=== PATIENT | male | born 1940 | race Caucasian/White ===

== ENCOUNTER 2018-07-28 09:27 | Outpatient (REF) | payer MEDICARE, SELFPAY ==
[2018-07-28 13:30] LABS: Hemoglobin A1C 5.7 % (4.5-6.2)
[2018-07-28 13:48] LABS: ALT 18 U/L (12-78); Cholesterol 127 mg/dL (50-200); HDL Cholesterol 57 mg/dL (40-60); LDL CHOLESTEROL 50 mg/dL (<100); Triglyceride 83 mg/dL (30-150)
== END 2018-07-28 09:47 ==
LOC: NCHCN 09:27
PROVIDERS: PCP Family Medicine; Visit Provider Family Medicine
DX: R73.01 Impaired fasting glucose (principal); E78.5 Hyperlipidemia, unspecified
CPT/HCPCS: 80061; 83721; 83036; 84460

== ENCOUNTER 2018-08-18 00:57 | Outpatient (CLI) | payer MEDICARE, SELFPAY ==
--- NOTE | 2018-08-18 13:40 | MERGE_ITS ---
*[facility]* *[facility]* [address] [place] [address] Date of study: 08/18/2018 Transthoracic Echocardiography M-mode, complete 2D, complete spectral Doppler, and color Doppler *STUDY CONCLUSIONS* Summary: 1. Left ventricle: The cavity size was normal. Wall thickness was at the upper limits of normal. Systolic function was normal. The estimated ejection fraction was 55-60%. Wall motion was normal; there were no regional wall motion abnormalities. 2. Aortic valve: Trileaflet; mildly thickened leaflets. There was moderate regurgitation directed eccentrically in the LVOT. 3. Aorta: There was a dilated segment, extending from the ascending aorta to the proximal aortic arch. The maximal diameter was 4.2cm. 4. Mitral valve: There was mild regurgitation. 5. Right ventricle: The cavity size was normal. Wall thickness was normal. Systolic function was normal. 6. Pulmonary arteries: Pulmonary systolic pressure was increased, in the range of 35mm Hg to 40mm Hg. *PATIENT PRESENTATION* Height: 170.2cm ((67in) ) S/D Pressure: 128 / 66 Weight: 72.6kg ((159.7lb) ) BSA: 1.86m^2 Test start time: 01:40 PM. Test stop time: 03:00 PM. ORDERING Patience Alvarez REFERRING Patience Alvarez PERFORMING [facility] MEDICAL BILLER CODER RT Maurilio (R)(CT), BASSEM *PROCEDURE DATA* Procedure information: The patient was identified by two identifiers. This study was interpreted by [facility]. Pertinent images and digital data are archived for permanent storage and are available for subsequent review. Comparison was made to the study of 08/03/2014. Study status: Routine. Transthoracic echocardiography. M-mode, complete 2D, complete spectral Doppler, and color Doppler. A Transthoracic Echocardiogram was performed. Scanning was performed from the parasternal, apical, subcostal, and suprasternal notch acoustic windows. Images were obtained using an [id number] cardiac ultrasound machine. Image quality was adequate. Study completion: The patient tolerated the procedure well. There were no complications. *CARDIAC ANATOMY* Left ventricle: The cavity size was normal. Wall thickness was at the upper limits of normal. Systolic function was normal. The estimated ejection fraction was 55-60%. Wall motion was normal; there were no regional wall motion abnormalities. The study is not technically sufficient to allow evaluation of LV diastolic function. Aortic valve: Trileaflet; mildly thickened leaflets. Mobility was not restricted. Doppler: Transvalvular velocity was within the normal range. There was no stenosis. There was moderate regurgitation directed eccentrically in the LVOT. VTI ratio of LVOT to aortic valve: 0.66. Valve area (VTI): 2.2cm^2. Indexed valve area (VTI): 1.2cm^2/m^2. Peak velocity ratio of LVOT to aortic valve: 0.65. Valve area (Vmax): 2.1cm^2. Indexed valve area (Vmax): 1.1cm^2/m^2. Mean velocity ratio of LVOT to aortic valve: 0.66. Valve area (Vmean): 2.1cm^2. Indexed valve area (Vmean): 1.2cm^2/m^2. Mean gradient (S): 6.5mm Hg. Peak gradient (S): 13.3mm Hg. Aorta: Aortic arch dimension: 3.7 cm. There was a dilated segment, extending from the ascending aorta to the proximal aortic arch. The maximal diameter was 4.2cm. Aortic root: The aortic root was at upper normal limits. Ascending aorta: The ascending aorta was mildly to moderately dilated. Aortic arch: The aortic arch was mildly dilated. Mitral valve: Structurally normal valve. Mobility was not restricted. Doppler: Transvalvular velocity was within the normal range. There was no evidence for stenosis. There was mild regurgitation. Valve area by pressure half-time: 7.4cm^2. Indexed valve area by pressure half-time: 4cm^2/m^2. Peak gradient (D): 3.4mm Hg. Left atrium: The atrium was normal in size. Right ventricle: The cavity size was normal. Wall thickness was normal. Systolic function was normal. Pulmonic valve: Structurally normal valve. Doppler: Transvalvular velocity was within the normal range. There was no evidence for stenosis. There was trivial regurgitation. Peak gradient (S): 3.6mm Hg. Tricuspid valve: Structurally normal valve. Doppler: Transvalvular velocity was within the normal range. There was no evidence for stenosis. There was mild regurgitation. Pulmonary artery: Pulmonary systolic pressure was increased, in the range of 35mm Hg to 40mm Hg. Right atrium: The atrium was normal in size. Pericardium: There was no pericardial effusion. Systemic veins: Inferior vena cava: Well visualized. The vessel was patent and normal in size. The respirophasic diameter changes were in the normal range (greater than or equal to 50%). Baseline ECG: Atrial flutter. Measurements Left ventricle Value Reference LV ID, ED, PLAX 5.0 cm 3.5 - 6.0 LV ID, ES, PLAX 3.5 cm 2.1 - 4.0 LV PW thickness, ED, PLAX 1.0 cm LV end-diastolic volume, 1-p A2C 92 ml LV ejection fraction, 1-p A2C 57 % LV end-diastolic volume, 1-p A4C 98 ml LV ejection fraction, 1-p A4C 58 % LV e', lateral 0.095 m/sec LV E/e', lateral 10 LV e', medial 0.077 m/sec LV E/e', medial 12 LV e', average 0.086 m/sec LV E/e', average 11 Ventricular septum Value Reference IVS thickness, ED, PLAX 1.2 cm LVOT Value Reference LVOT ID, A-P 2.0 cm LVOT area 3.3 cm^2 LVOT peak velocity, S 1.18 m/sec LVOT mean velocity, S 0.79 m/sec LVOT VTI, S 21.9 cm LVOT peak gradient, S 5.6 mm Hg LVOT mean gradient, S 2.9 mm Hg Stroke volume (SV), LVOT DP 72 ml Stroke index (SV/bsa), LVOT DP 39 ml/m^2 Aortic valve Value Reference Aortic valve peak velocity, S 1.8 m/sec Aortic valve mean velocity, S 1.2 m/sec Aortic valve VTI, S 33.0 cm Aortic mean gradient, S 6.5 mm Hg Aortic peak gradient, S 13.3 mm Hg VTI ratio, LVOT/AV 0.66 Aortic valve area, VTI 2.2 cm^2 Velocity ratio, peak, LVOT/AV 0.65 Aortic valve area, peak velocity 2.1 cm^2 Velocity ratio, mean, LVOT/AV 0.66 Aortic valve area, mean velocity 2.1 cm^2 Aortic valve area/bsa, mean velocity 1.2 cm^2/m^2 Aortic regurg deceleration 535 cm/s^2 Aortic regurg pressure half-time 232 ms Aorta Value Reference Aortic root ID, ED 3.7 cm Ascending aorta ID, A-P, S 4.2 cm Left atrium Value Reference LA ID, A-P, ES 2.2 cm LA ID/bsa, A-P 1.2 cm/m^2 <=2.2 LA area, ES, A4C 23 cm^2 8.8 - 23.4 LA area, ES, A2C 21 cm^2 LA volume/bsa, ES, 1-p A4C 44 ml/m^2 LA volume, ES, 2-p 72 ml LA volume/bsa, ES, 2-p 38 ml/m^2 LA/aortic root ratio 0.61 Mitral valve Value Reference Mitral E-wave peak velocity 0.93 m/sec Mitral deceleration time (L) 103 ms 150 - 230 Mitral pressure half-time 30 ms Mitral peak gradient, D 3.4 mm Hg Mitral valve area, PHT, DP 7.4 cm^2 Tricuspid valve Value Reference Tricuspid regurg peak velocity 2.8 m/sec Tricuspid peak RV-RA gradient 32.2 mm Hg Right atrium Value Reference RA area, ES, A4C 15.2 cm^2 8.3 - 19.5 Pulmonic valve Value Reference Pulmonic peak gradient, S 3.6 mm Hg Legend: (L) and (H) grady values outside specified reference range. I have personally reviewed the images and have reviewed and edited the reported findings. Electronically signed by Jan Bae 08/19/2018 07:50
== END 2018-08-18 01:17 ==
PROVIDERS: PCP Family Medicine; Visit Provider Family Medicine
DX: I35.1 Nonrheumatic aortic (valve) insufficiency (principal); I34.0 Nonrheumatic mitral (valve) insufficiency
CPT/HCPCS: 93306

== ENCOUNTER 2019-10-06 00:58 | Outpatient (CLI) | payer MEDICARE, SELFPAY ==
--- NOTE | 2019-10-06 10:10 | DI.US_ITS ---
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 aortic valve regurgitation i35.1 follow up echo, p lease compare to last year.? progression? need to see cardiology Conclusion Left Ventricle : The left ventricle is normal size. Left ventricular systolic function is normal. Mi ld left ventricular hypertrophy. Asymmetric septal thickening is noted. The posterior wall thickness is mildly increased. The septal thickness is mildly increased. There is normal LV segmental wall mot ion. Diastolic function is indeterminate. LVEF is estimated to be 50-55%. Right Ventricle : The right ventricle is normal is size.. The right ventricular systolic function ivett ears normal. Atria : Left atrium is moderately dilated. The right atrium size is normal. Aortic Valve : Aortic valve is trileaflet. Aortic valve leaflets are mildly thickened. Moderate to se eddie aortic regurgitation (PHT 163) There is no significant aortic valvular stenosis. Mitral Valve : The mitral valve is normal in structure. Mild mitral regurgitation. Tricuspid Valve : The tricuspid valve is not well visualized. Mild to moderate tricuspid regurgitatio n. Great Vessels : The ascending aorta is moderately dilated (4.4cm). The IVC i sdilated in size and c ollapses >50% with inspiration. Compared to prior echocardiogram dated 08/18/2018: The patient's aortic regurgitation has worsened sl ightly and ejection fraction has decreased. The ascending aorta has increased in size from 4.2 to 4. 4 cm. Wall motion Left Ventricle The left ventricle is normal size. Left ventricular systolic function is normal. Mild left ventricula r hypertrophy. Asymmetric septal thickening is noted. The posterior wall thickness is mildly increase d. The septal thickness is mildly increased. There is normal LV segmental wall motion. Diastolic func tion is indeterminate. LVEF is estimated to be 50-55%. Right Ventricle The right ventricle is normal is size.. The right ventricular systolic function appears normal. Atria Left atrium is moderately dilated. The right atrium size is normal. Aortic Valve Aortic valve is trileaflet. Aortic valve leaflets are mildly thickened. There is no significant aorti c valvular stenosis. Moderate to severe aortic regurgitation (PHT 163) Mitral Valve The mitral valve is normal in structure. Mild mitral regurgitation. Tricuspid Valve The tricuspid valve is not well visualized. Mild to moderate tricuspid regurgitation. Pulmonic Valve Mild pulmonic regurgitation. Great Vessels Aortic root is normal The ascending aorta is moderately dilated (4.4cm). The IVC i sdilated in size a nd collapses >50% with inspiration. Pericardium There is no pericardial effusion. 2D Dimensions IVSd 1.40 cm M: 0.6-1.2 LV EDV A2C 74.3 mL PWd 1.15 cm M: 0.6 - 1.2 LV EDV A4C 82.9 mL LVDd 4.40 cm M: 4.2 - 5.8 LA Volume Index Biplane 53.8 mL/m2 LVDs 3.20 cm M: 2.5 - 4.0 LA Area A4C 25.49 cm2 Aortic Root 3.70 cm M: 3.1 - 3.7 LA Area A2C 31.12 cm2 RVID Base (AP4) 3.70 cm (M/F) 2.5-4.1 EF AP4 49.5 % RA Area A4C 16.52 cm2 EF AP2 50.5 % LVOT 1.95 cm (M/F) 1.5-2.5 EF BP 52.3 % Ascending Aorta 4.40 cm M: 2.6 - 3.4 IVC 2.24 cm LVEF (Teich) 52.6 % LVEF (Walton's) 52.29 % M: 52 - 72 LV Volume 63.21 mL M: 62 - 150 LV Volume Index 33.98 mL/m2 M: 34 - 74 FS 26.80 % LV Diastology MV E' medial 0.100 (>0.07 m/s) TR Peak Velocity 2.79 m/s LV E/e MED 9.05 (<14) MV E' lateral 0.146 (>0.1 m/s) LV E/e LAT 6.20 (<14) LA vol/ BSA A2C s A-L 57.1 mL/m2 LA vol/ BSA A4C s A-L 44.0 mL/m2 Aortic Valve LVOT Area 3.04 cm2 AoV Area Vmax 2.28 cm2 LVOT Vmax 1.44 m/s AoV Area/ BSA (Vmax) 1.23 cm2/m2 LVOT Mean Aron. 0.96 m/s KEVIN Mean Aron. 2.15 cm2 LVOT Peak Gr. 8.3 mmHg KEVIN Mean Aron. Index 1.16 cm2/m2 LVOT Mean Gr. 4.3 mmHg AV Regurg Decel. 562 msec LVOT VTI 0.268 m AV Regurg PHT 163 msec AoV Vmax 1.92 (0.5-1.3 m/s) AoV Mean Aron. 1.36 m/s AoV Peak Grad 14.8 mmHg LVOT SV 81.60 mL AoV Mean Grad 8.4 (<5 mmHg) AoV VTI 0.367 (0.18-0.25 m) AoV Area VTI 2.22 (2.5-4.5 cm2) AoV Area/ BSA (VTI) 1.20 cm/m2 Mitral Valve MV E Max Aron. 0.91 (0.4-1.3 m/s) MVA VTI 4.93 (4.0-6.0 cm2) PV Peak Velocity 1.21 (0.5-1.5 m/s) RVOT Peak Gr. 2.48 mmHg RVOT Peak Aron. 0.79 m/s RVOT Mean Gr. 1.30 mmHg RVOT VTI 0.100 m Tricuspid Valve TR P. Gradient 31.0 mmHg TV Regurg Vmax 2.79 m/s RAP Estimate 8.00 mmHg RVSP 39.1 mmHg
== END 2019-10-06 01:18 ==
PROVIDERS: PCP Family Medicine; Visit Provider Family Medicine
DX: I77.810 Thoracic aortic ectasia (principal); I35.1 Nonrheumatic aortic (valve) insufficiency; I10 Essential (primary) hypertension
CPT/HCPCS: 93306

== ENCOUNTER → 2019-11-21 15:01 | Outpatient (BNVA) | payer MEDICARE, SELFPAY | PROVIDERS: PCP Family Medicine; Referring Provider Family Medicine; Visit Provider Internal Medicine Cardiovascular Disease | DX: I35.1 Nonrheumatic aortic (valve) insufficiency (principal); I77.810 Thoracic aortic ectasia | CPT/HCPCS: 99203; 99214 ==

== ENCOUNTER 2020-05-03 01:17 | Outpatient (CLI) | payer MEDICARE, SELFPAY ==
--- NOTE | 2020-05-03 12:37 | DI.US_ITS ---
APPROVED REPORT EXAM: Comprehensive 2D, Doppler, and color-flow Echocardiogram Patient Location: Out-Patient Registered Safety Engineer: Stacie Miranda RDCS (AE) Indications: Aortic Insufficiency, Aortic root dilation Other Information Study Quality: Adequate Conclusion Moderate concentric left ventricular hypertrophy. Estimated ejection fraction is 55 to 60%. There a re no segmental wall motion abnormalities Normal right ventricular size and systolic function Left atrium is mildly dilated. The right atrium is normal in size Aortic valve is trileaflet and sclerotic. There is no aortic stenosis. There is moderate aortic reg urgitation Structurally normal mitral valve. Mild to moderate mitral regurgitation Normal tricuspid valve. Mild tricuspid regurgitation. Normal estimated right ventricular systolic p ressure, 29 mmHg Normal pulmonic valve with trace regurgitation Normal aortic root. Ascending aorta is dilated measuring 4.13 cm Wall motion Left Ventricle The left ventricle is normal size. The left ventricular systolic function is normal. The left ventric ular ejection fraction is within the normal range. Moderate concentric left ventricular hypertrophy. There is normal LV segmental wall motion. There is no ventricular septal defect visualized. LVEF is 5 5-60%. Right Ventricle The right ventricle is normal size. The right ventricular systolic function is normal. The RVSP is 29 .4mmHg. Atria Left atrium is mildly dilated. The right atrium size is normal. The interatrial septum is intact with no evidence for an atrial septal defect. Aortic Valve Aortic valve is trileaflet. The Aortic valve is sclerotic. There is no aortic valvular stenosis. Mode rate aortic regurgitation. Mitral Valve The mitral valve is normal in structure. No evidence of mitral valve stenosis. Mild to moderate huyen l regurgitation. Tricuspid Valve The tricuspid valve is normal in structure. There is no tricuspid valve stenosis. Mild tricuspid regu rgitation. Pulmonic Valve The pulmonary valve is normal in structure. There is no pulmonic valvular stenosis. Trace pulmonic re gurgitation. Great Vessels The aortic root is normal in size. 3.3 cm The ascending aorta is moderately dilated.4.13 cm Aortic ar ch is dilated. IVC is normal in size and collapses >50% with inspiration. Pericardium There is no pericardial effusion. 2D Dimensions IVSD d PLAX 1.30 cm M: 0.6-1.2 LV Vol A2C d MOD 107.7 mL LVPW d PLAX 1.33 cm M: 0.6 - 1.2 LV Vol A4C d MOD 142.6 mL LVID d PLAX 4.23 cm M: 4.2 - 5.8 LA vol/ BSA A2C s A-L 25.5 mL/m2 LVDs 3.20 cm M: 2.5 - 4.0 LA vol/ BSA A4C s A-L 44.7 mL/m2 Ao Root d 3.33 cm M: 3.1 - 3.7 LA Vol/ BSA Biplane s A-L 36.7 mL/m2 RA Area A4C 16.52 cm2 LA Area A4C s MOD 25.31 cm2 RA Vol/ BSA A4C s A-L 24.4 mL/m2 LA Area A2C s MOD 17.57 cm2 Ao Asc Diam d 4.13 cm M: 2.6 - 3.4 LV EF A4C MOD 51.0 % LV EF Teichholz 47.4 % LV EF A2C MOD 55.7 % LVEF (Walton's) 53.30 % M: 52 - 72 LV EF Biplane MOD 53.3 % LV Volume 95.58 mL M: 62 - 150 SV 66.56 mL LV Volume Index 50.84 mL/m2 M: 34 - 74 SV Index 35.34 mL/m2 LV Vol Biplane MOD 124.9 mL FS 23.55 % M-Mode TAPSE 2.26 cm (M/F) >1.7 LV Diastology MV E' medial 0.090 (>0.07 m/s) E/A Ratio 2.3 LV E/e MED 11.20 (<14) MV E Vmax 1.02 (0.4-1.3 m/s) MV E' lateral 0.138 (>0.1 m/s) MV A Vmax 0.45 (0.4-1.3 m/s) LV E/e LAT 7.35 (<14) MV E/A Ratio 2.20 MV E/E' medial 11.24 MV E/E' lateral 7.36 Aortic Valve LVOT Area 3.13 cm2 AoV Area Vmax 2.56 cm2 LVOT Vmax 1.48 m/s AoV Area/ BSA (Vmax) 1.36 cm2/m2 LVOT Mean Aron. 0.88 m/s KEVIN Mean Aron. 2.46 cm2 LVOT Peak Grad 8.7 mmHg KEVIN Mean Aron. Index 1.30 cm2/m2 LVOT Mean Grad 3.8 mmHg AR DT 1834 msec LVOT VTI 0.290 m AR PHT 532 msec LVOT Diam s 1.95 cm AoV Vmax 1.81 m/s Velocity Ratio 0.81 AoV Mean Aron. 1.12 m/s AoV Peak Grad 13.1 mmHg LVOT SV 90.93 mL AoV Mean Grad 6.0 mmHg AoV VTI 0.345 m AoV Area VTI 2.64 cm2 AoV Area/ BSA (VTI) 1.40 cm/m2 Mitral Valve MV DT 100 (160-240 msec) MR Vmax 5.40 m/s MV PHT 29 msec MR VTI 1.811 m MV Area PHT 7.61 cm2 MR Peak Grad 116.7 mmHg MV VTI 0.224 m MR Mean Grad 76.9 mmHg MV Area VTI 4.05 (4.0-6.0 cm2) MR PISA Radius 0.34 cm MR EROA 0.05 cm2 MR Aliasing Velocity 0.35 m/s MR PISA 0.72 cm2 Pulmonary Valve PV Vmax 0.94 (0.5-1.5 m/s) RVOT Peak Gr. 1.75 mmHg PV Peak Grad 3.5 mmHg RVOT Mean Gr. 0.80 mmHg PV Mean Grad 1.8 mmHg RVOT VTI 0.118 m PV VTI 0.178 m RVOT Vmax 0.66 m/s Tricuspid Valve TR Peak Grad 26.3 mmHg TR Vmax 2.57 m/s RA Pressure 3.00 mmHg RVSP (TR) 29.4 mmHg
== END 2020-05-03 01:37 ==
PROVIDERS: PCP Family Medicine; Visit Provider Internal Medicine Cardiovascular Disease
DX: I08.3 Combined rheumatic disorders of mitral, aortic and tricuspid valves (principal)
CPT/HCPCS: 93306

== ENCOUNTER → 2020-05-21 12:38 | Outpatient (BNVA) | payer MEDICARE, SELFPAY | PROVIDERS: PCP Family Medicine; Referring Provider Family Medicine; Visit Provider Internal Medicine Cardiovascular Disease | DX: I35.1 Nonrheumatic aortic (valve) insufficiency (principal); I77.810 Thoracic aortic ectasia; I10 Essential (primary) hypertension | CPT/HCPCS: 99214 ==

== ENCOUNTER → 2020-11-20 10:57 | Outpatient (BNVA) | payer MEDICARE, SELFPAY | PROVIDERS: PCP Family Medicine; Referring Provider Family Medicine; Visit Provider Internal Medicine Cardiovascular Disease | DX: I35.1 Nonrheumatic aortic (valve) insufficiency (principal); I77.810 Thoracic aortic ectasia; I10 Essential (primary) hypertension | CPT/HCPCS: 99442; 99213 ==

== ENCOUNTER 2021-02-12 09:30 | Emergency (ER) | payer MEDICARE, SELFPAY ==
[2021-02-12] VITALS (18 sets, daily range): BP systolic 126–136; BP diastolic 58–70; PULSE 91–94; RESP 14; TEMP 36.5; O2SAT 94–97
--- NOTE | 2021-02-12 09:32 | W.ED.GENAD ---
Discharge Plan Disposition Patient Disposition: HOME Condition: Stable Discharge Details Clinical Impression: Left-sided epistaxis Primary Care Provider: Patience Alvarez ED Provider: Hussain Don Home Meds and New Rx's Prescriptions: Continued tamsulosin 0.4 MG capsule 1 cap PO HS Qty: 90 RF: 4 sertraline 100 MG tablet 100 mg PO DAILY RF: 0 aspirin 81 MG tablet,delayed release (DR/EC) 1 tab PO . 3X WK RF: 0 baclofen 20 MG tablet 20 mg PO TID RF: 0 lisinopril 10 MG tablet 10 mg PO DAILY RF: 0 omeprazole 20 MG capsule,delayed release(DR/EC) 20 mg PO DAILY RF: 0 cholecalciferol (vitamin D3) [Vitamin D3] 2,000 UNIT capsule 1 cap PO DAILY RF: 0 rosuvastatin [Crestor] 20 MG tablet 20 mg PO HS RF: 0 Discharge Instructions Instructions: Nosebleed (ED) Additional Instructions: At this time your nosebleed was easily controlled using a medicated pad and a nasal clamp. I recommend continuing with the nasal clamp, direct pressure, and she may remove the cottonball in the next 12-24 hours. Please watch for new or worsening symptoms and return to the ER for any concerns. You would likely benefit from using a humidifier in your home, especially your bedroom to help so the air is not so dry. I have placed you on the ENT list, please give their office a call tomorrow to help expedite outpatient care given your recurrent nosebleeds over the past several months. Referrals: Ramesh Johnson DO [OSTEOPATHIC DOCTOR] - Medical Decision Making 81-year-old gentleman presents with what appears to be a left anterior epistasis, controlled at this point. He states that he has had several over the past few months. He denies any obvious trauma. Does report that his house is dry. He is not anticoagulated, denies any easy bruising or bleeding. He has not seen his primary care provider or ENT over the past several months for his multiple epistasis. Given he is hemodynamically stable, bleeding controlled at this time, he is not anticoagulated, I do not believe that reflexive blood work is indicated at this time. Blood pressure is appropriate at 136/58. There is no evidence of petechiae like rash. Clinically he appears well, nontoxic, hemodynamically stable. There is a large clot in his left nare, right naris unremarkable. There is no active bleeding. Discussed options, patient would prefer to try a cotton ball soaked in medication as opposed to a larger more cumbersome Rhino Rocket. As he appears well, stable, no active bleeding, I believe this plan to be perfectly reasonable. I had the patient blow his nose to clear the clot. Upon reevaluation there is no active bleeding, I could not visualize a source of bleeding. A cotton ball soaked in 2 sprays of Afrin, 3 cc of 2% lidocaine, and bacitracin was applied without difficulty, patient tolerated well. Patient was monitored in the ER for over 45 minutes. He remained hemodynamically stable. Upon reevaluation he was drinking water without difficulty. There is no signs of anterior bleeding around the cottonball as well as no evidence of any blood in his oropharynx. Discussed options once again. I will place him on the ENT list to help expedite outpatient ENT follow-up. He has a large republican for a family member's 80th birthday republican this evening. He is concerned about bleeding again later today or tomorrow. Plan is to leave the cotton ball and clamp in place, he will remove both in the next 12-24 hours. We discussed the importance of removing all of the cotton ball. He was encouraged to return to the ER for new or worsening symptoms. We also discussed using a humidifier in his house. Given his multiple nosebleeds over the past few months, stressed the importance of outpatient ENT follow-up. Patient and had no additional questions or concerns and are comfortable discharge at this time Medical Records Medical records reviewed: Yes I reviewed the patient's medical records. HPI General Mode of arrival: EMS. Date/Time Provider Initiated Documentation: 02/12/21 09:32. Limitations to Documentation: no limitations. Information obtained by: patient and EMS. HPI Narrative: This is an 81-year-old gentleman, not anticoagulated, past medical history that includes anxiety, aortic valve regurgitation, BPH, GERD, hypertension, hyperlipidemia, presenting to the ER complaining of a left sided epistasis. Patient reports that he has had a few nosebleeds from the same side over the past several months, typically resolves with pressure, has not followed up with ENT for this. This morning he developed a left-sided nosebleed around 630 a.m. while in bed. Denies coughing, sneezing, direct manipulation. Denies any black tarry stools or bright red blood in the stools, hematuria, other easy bruising or bleeding. Patient had applied pressure by the time EMS arrived bleeding was controlled. Because he has had so many frequent nosebleeds he decided to come to the ER for further evaluation. Currently patient is asymptomatic. He has no additional questions or concerns. Related Data Home Medications Medication Instructions Recorded Confirmed aspirin 1 tab PO . 3X WK 09/15/14 02/12/21 baclofen 20 mg PO TID 09/15/14 02/12/21 cholecalciferol (vitamin D3) 1 cap PO DAILY 09/15/14 02/12/21 [Vitamin D3] lisinopril 10 mg PO DAILY 09/15/14 02/12/21 omeprazole 20 mg PO DAILY 09/15/14 02/12/21 sertraline 100 mg PO DAILY 09/15/14 02/12/21 tamsulosin 1 cap PO HS #90 tab-cap 10/17/16 02/12/21 rosuvastatin [Crestor] 20 mg PO HS 08/28/17 02/12/21 Allergies Allergy/AdvReac Type Severity Reaction Status Date / Time No Known Allergies Allergy Unverified 02/12/21 09:36 Review of Systems Constitutional Constitutional: Denies fever(s), Denies headache(s) and Denies weakness ENT Ears, Nose, Mouth, and Throat: Denies headache(s), Denies nasal congestion and Denies nose pain Cardiovascular Cardiovascular: Denies chest pain and Denies dyspnea Respiratory Respiratory: Denies dyspnea Gastrointestinal Gastrointestinal: Denies abdominal pain, Denies nausea and Denies vomiting Genitourinary Genitourinary: Denies hematuria Integumentary/Breasts Skin/Breast: Denies rash Neurologic Neurologic: Denies headache(s) and Denies weakness Hematologic/Lymphatic Hematologic/Lymphatic: Denies easy bleeding and Denies easy bruising [facility] Medical History (Updated 02/12/21 @ 11:13 by LILIA Silva) Anxiety Anxiety about health Aortic valve regurgitation BPH w/o urinary obs/LUTS Cholelithiasis Erectile dysfunction GERD (gastroesophageal reflux disease) Hiatal hernia History of tobacco use HTN (hypertension) Hyperlipidemia Impaired fasting glucose LLQ abdominal pain Myelopathy Spinal stenosis, cervical region Spinal stenosis, lumbar region, with neurogenic claudication Splenic lesion Surgical History Colonoscopy - MAC (09/02/17) Repair of inguinal hernia bilateral Social History Smoking/Tobacco Use Status: Former Tobacco Use Quit Date: 08/31/78 Tobacco: How many years used: 20 Smoking risk assessment performed?: Yes Alcohol Intake: current Alcohol Intake frequency: 0-2 drinks per day Alcohol type: hard liquor Drug use: Never What is your relationship status?: Panel score (0-1 are the most socially isolated patients): 1 What type of physical activity do you participate in: other Details: stationary cycle Duration: 15-30 minutes/day Frequency: daily Do you feel safe at home: Yes Do you feel safe in your relationship?: Yes Exam Const General: cooperative, healthy appearing, comfortable and no acute distress Orientation: alert, awake and oriented x3 HENMT Head: normal to inspection, normocephalic and atraumatic General nose exam: other (Wearing a nasal clamp, no signs of trauma or anterior bleed) Face and sinus: normal facial exam Mouth: moist mucous membranes Throat: posterior oropharynx normal Other: I removed the nasal clamp, right nare unremarkable. Left nare without any obvious bleeding however there is a large clot obscuring my visual field Eyes General: appearance normal, both eyes and all related structures Conjunctivae: conjunctivae normal Neck Neck: normal visual inspection, full ROM, trachea midline and supple Resp Effort & Inspection: normal respiratory effort and able to speak in complete sentences Auscultation: clear to auscultation bilaterally Cardio Rate: regular rate Rhythm: regular rhythm Skin General skin exam: no rashes or lesions noted Neuro General: patient alert, patient awake, moves all extremities and no focal motor deficits Cognition: normal cognition Speech: speech normal Sensory Exam: no sensory deficits noted Extrem General: normal to inspection Psych Appearance: grossly normal Mental Status: mental status grossly normal Procedures Epistaxis Control Time Out Performed: Yes Nostril: left Nose Prepped With: lidocaine and phenylephrine Direct Inspection: unable to visualize Clots Removed by: blowing nose Cautery Used: none Device Inserted: other (Cottonball soaked in lidocaine, Afrin, bacitracin) Patient Tolerated Procedure: well and no complications
--- NOTE | 2021-02-12 19:01 | NUR.NOTE ---
Nursing Note: referral sent to ent
== END 2021-02-12 11:25 | disposition home or self-care (01) ==
PROVIDERS: Emergency Provider Physician Assistant; PCP Family Medicine
DX: R04.0 Epistaxis (principal)
CPT/HCPCS: 30901

== ENCOUNTER 2021-04-19 09:57 | Outpatient (REF) | payer MEDICARE, SELFPAY ==
[2021-04-19 15:03] LABS: HCT 36.4 % (40.0-50.0); HGB 11.7 g/dL (13.5-17.5); MCH 27.4 pg (27.0-33.0); MCHC 32.1 % (32.0-36.0); MCV 85.2 fL (80-95); MPV 9.2 fL (8.0-11.0); Platelet Count 149 10^3/uL (130-400); RBC 4.27 10^6/uL (4.36-5.78); RDW 13.1 % (11.8-14.1); RDW-SD 40.3 fL; WBC 4.44 10^3/uL (4.4-10.8)
[2021-04-19 16:43] LABS: ALT 14 U/L (16-63); AST 18 U/L (15-37); Albumin 3.9 g/dL (3.4-5.0); Alkaline Phosphatase 92 U/L (46-116); Anion Gap 9.1 mmol/L (3-11); BUN 23 mg/dL (7-18); Bilirubin, Total 0.5 mg/dL (0.2-1.0); CO2 28.9 mmol/L (21.0-32.0); CREATININE 1.1 mg/dL (0.70-1.30); Calcium 8.8 mg/dL (8.5-10.1); Chloride 106 mmol/L (98-107); Folate 11.9 ng/mL (8.6-20.0); Glucose 120 mg/dL (74-106); Potassium 4.1 mmol/L (3.5-5.1); Sodium 144 mmol/L (136-145); Total Protein 7.3 g/dL (6.4-8.2); Vitamin B12 322 pg/mL (193-986)
[2021-04-19 16:45] LABS: Hemoglobin A1C 5.9 % (<5.7)
[2021-04-19 18:20] LABS: Ferritin 15 ng/mL (26-388)
[2021-04-23 16:45] LABS: Methylmalonic Acid 0.22 nmol/mL (<=0.40)
== END 2021-04-19 09:58 | disposition home or self-care (01) ==
LOC: NCHCN 09:57
PROVIDERS: PCP Family Medicine; Visit Provider Family Medicine
DX: D64.9 Anemia, unspecified (principal); I10 Essential (primary) hypertension; R73.03 Prediabetes; R53.1 Weakness; Z51.81 Encounter for therapeutic drug level monitoring
CPT/HCPCS: 80053; 80186; 85027; 82607; 82728; 82746; 83036

== ENCOUNTER 2021-05-09 01:28 | Outpatient (CLI) | payer MEDICARE, SELFPAY ==
--- NOTE | 2021-05-09 08:30 | DI.US_ITS ---
APPROVED REPORT EXAM: Comprehensive 2D, Doppler, and color-flow Echocardiogram Patient Location: Out-Patient [employer] Operator: Stacie Miranda RDCS (AE) Indications: Aortic insufficiency, Dilated ascending aorta Other Information Study Quality: Adequate Conclusion Moderate concentric left ventricular hypertrophy. Estimated ejection fraction is 60 to 65%. Wall mo tion is normal Normal right ventricular size and systolic function Left atrium is moderately dilated. Right atrium is normal in size Sclerotic trileaflet aortic valve with mild to moderate regurgitation. No significant aortic stenosi s Mild mitral annular calcification. Mild to moderate mitral regurgitation Normal tricuspid valve with mild regurgitation. Estimated right ventricular systolic pressure is 32 mmHg Normal pulmonic valve with trace regurgitation Mildly dilated ascending aorta measuring 4.14 cm Patient rhythm may be atrial flutter with controlled rate. Suggest twelve-lead EKG Wall motion Left Ventricle The left ventricle is normal size. The left ventricular systolic function is normal. The left ventric ular ejection fraction is within the normal range. Moderate concentric left ventricular hypertrophy. There is normal LV segmental wall motion. There is no ventricular septal defect visualized. LVEF is 6 0-65%. Right Ventricle The right ventricle is normal size. The right ventricular systolic function is normal. The RVSP is 31 .9mmHg. Atria Left atrium is moderately dilated. The right atrium size is normal. The interatrial septum is intact with no evidence for an atrial septal defect. Aortic Valve The Aortic valve is sclerotic. Aortic valve is trileaflet. There is no aortic valvular stenosis. Mild to moderate aortic regurgitation. Mitral Valve Mild mitral annular calcification. No evidence of mitral valve stenosis. Mild to moderate mitral regu rgitation. Tricuspid Valve The tricuspid valve is normal in structure. There is no tricuspid valve stenosis. Mild tricuspid regu rgitation. Pulmonic Valve The pulmonary valve is normal in structure. There is no pulmonic valvular stenosis. Trace pulmonic re gurgitation. Great Vessels The aortic root is normal in size. The ascending aorta is mildly dilated. Ascending aorta is mildly d ilated.4.14 cm IVC is normal in size and collapses >50% with inspiration. Pericardium There is no pericardial effusion. 2D Dimensions IVSD d PLAX 1.31 cm M: 0.6-1.2 LV Vol A2C d MOD 134.9 mL LVPW d PLAX 1.30 cm M: 0.6 - 1.2 LV Vol A4C d MOD 136.4 mL LVID d PLAX 4.87 cm M: 4.2 - 5.8 LA vol/ BSA A2C s A-L 35.9 mL/m2 LVDs 3.25 cm M: 2.5 - 4.0 LA vol/ BSA A4C s A-L 33.3 mL/m2 Ao Root d 3.20 cm M: 3.1 - 3.7 LA Vol/ BSA Biplane s A-L 36.1 mL/m2 RA Area A4C 12.81 cm2 LA Area A4C s MOD 19.55 cm2 RA Vol/ BSA A4C s A-L 16.4 mL/m2 LA Area A2C s MOD 21.19 cm2 Ao Asc Diam d 4.14 cm M: 2.6 - 3.4 LV EF A4C MOD 61.1 % LV EF Teichholz 60.8 % LV EF A2C MOD 59.5 % LVEF (Walton's) 59.99 % M: 52 - 72 LV EF Biplane MOD 60.0 % LV Volume 108.52 mL M: 62 - 150 SV 83.09 mL LV Volume Index 61.65 mL/m2 M: 34 - 74 SV Index 47.11 mL/m2 LV Vol Biplane MOD 138.5 mL FS 32.55 % M-Mode TAPSE 1.67 cm (M/F) >1.7 LV Diastology MV E' medial 0.081 (>0.07 m/s) E/A Ratio 2.2 LV E/e MED 10.80 (<14) MV E Vmax 0.88 (0.4-1.3 m/s) MV E' lateral 0.145 (>0.1 m/s) MV A Vmax 0.40 (0.4-1.3 m/s) LV E/e LAT 6.05 (<14) MV E/A Ratio 2.01 MV E/E' medial 10.80 MV E/E' lateral 6.07 Aortic Valve LVOT Area 3.62 cm2 AoV Area Vmax 3.06 cm2 LVOT Vmax 1.55 m/s AoV Area/ BSA (Vmax) 1.73 cm2/m2 LVOT Mean Aron. 0.93 m/s KEVIN Mean Aron. 2.79 cm2 LVOT Peak Grad 9.6 mmHg KEVIN Mean Aron. Index 1.58 cm2/m2 LVOT Mean Grad 4.2 mmHg LVOT VTI 0.321 m LVOT Diam s 2.10 cm AoV Vmax 1.83 m/s Velocity Ratio 0.84 AoV Mean Aron. 1.21 m/s AoV Peak Grad 13.4 mmHg LVOT SV 116.21 mL AoV Mean Grad 6.5 mmHg AoV VTI 0.363 m AoV Area VTI 3.20 cm2 AoV Area/ BSA (VTI) 1.82 cm/m2 Mitral Valve MV DT 163 (160-240 msec) MR Vmax 4.82 m/s MV PHT 47 msec MR VTI 1.613 m MV Area PHT 4.66 cm2 MR Peak Grad 93.1 mmHg MV VTI 0.297 m MR Mean Grad 60.8 mmHg MV Area VTI 3.92 (4.0-6.0 cm2) Pulmonary Valve PV Vmax 1.11 (0.5-1.5 m/s) RVOT Peak Gr. 1.35 mmHg PV Peak Grad 4.9 mmHg RVOT Mean Gr. 0.70 mmHg PV Mean Grad 2.3 mmHg RVOT VTI 0.117 m PV VTI 0.210 m RVOT Vmax 0.58 m/s Tricuspid Valve TR Peak Grad 28.9 mmHg TR Vmax 2.69 m/s RA Pressure 3.00 mmHg RVSP (TR) 31.9 mmHg
== END 2021-05-09 01:48 ==
PROVIDERS: PCP Family Medicine; Visit Provider Internal Medicine Cardiovascular Disease
DX: I77.810 Thoracic aortic ectasia (principal); I08.3 Combined rheumatic disorders of mitral, aortic and tricuspid valves
CPT/HCPCS: 93306

== ENCOUNTER → 2021-05-13 11:30 | Outpatient (BNVA) | payer MEDICARE, SELFPAY | PROVIDERS: PCP Family Medicine; Referring Provider Family Medicine; Visit Provider Internal Medicine Cardiovascular Disease | DX: I35.1 Nonrheumatic aortic (valve) insufficiency (principal); I10 Essential (primary) hypertension; I77.810 Thoracic aortic ectasia | CPT/HCPCS: 99214; 99213 ==

== ENCOUNTER 2021-07-10 11:29 | Outpatient (REF) | payer MEDICARE, SELFPAY ==
[2021-07-10 14:10] LABS: HCT 42.7 % (40.0-50.0); HGB 13.7 g/dL (13.5-17.5); MCH 27.9 pg (27.0-33.0); MCHC 32.1 % (32.0-36.0); MPV 9.1 fL (8.0-11.0); Platelet Count 129 10^3/uL (130-400); RBC 4.91 10^6/uL (4.36-5.78); RDW-SD 54.4 fL; WBC 4.49 10^3/uL (4.4-10.8)
[2021-07-10 16:12] LABS: Ferritin 42 ng/mL (26-388); Vitamin B12 604 pg/mL (193-986)
== END 2021-07-10 11:30 | disposition home or self-care (01) ==
LOC: NCHCN 11:29
PROVIDERS: PCP Family Medicine; Visit Provider Family Medicine
DX: D64.9 Anemia, unspecified (principal); R53.1 Weakness
CPT/HCPCS: 85027; 82607; 82728

== ENCOUNTER 2022-05-19 09:23 | Outpatient (CLI) | payer MEDICARE, SELFPAY ==
--- NOTE | 2022-05-19 09:15 | RT.EKG_ITS ---
APPROVED REPORT Exam: Resting ECG Reason for Exam: AAA Patient Location: O HR:69 bpm ECG Measurements Heart Rate 69 AXIS AR [id number] P [id number] QRSd 152 QRS 54 QT 469 T 19 QTc 503 Conclusion Atrial flutter with predominant 4:1 AV block...A-rate 263, multiple Ps Right bundle branch block...QRSd>120, terminal axis(90,270)
== END 2022-05-19 09:24 | disposition home or self-care (01) ==
LOC: DI.CARD 09:24
PROVIDERS: PCP Family Medicine; Visit Provider Internal Medicine Cardiovascular Disease
DX: I48.92 Unspecified atrial flutter (principal); I45.10 Unspecified right bundle-branch block; I35.1 Nonrheumatic aortic (valve) insufficiency; I77.810 Thoracic aortic ectasia
CPT/HCPCS: 93010

== ENCOUNTER → 2022-05-19 11:32 | Outpatient (BNVA) | payer MEDICARE, SELFPAY | PROVIDERS: PCP Family Medicine; Referring Provider Family Medicine; Visit Provider Internal Medicine Cardiovascular Disease | DX: I35.1 Nonrheumatic aortic (valve) insufficiency (principal); I77.810 Thoracic aortic ectasia; I48.92 Unspecified atrial flutter | CPT/HCPCS: 93005; 99215 ==

== ENCOUNTER 2022-08-04 13:16 | Emergency (ER) | payer MEDICARE, SELFPAY ==
[2022-08-04 13:24] VITALS: BP 156/68; PULSE 87; RESP 18; TEMP 37; O2SAT 94
--- NOTE | 2022-08-04 13:59 | ED.GENADUL_ITS ---
Discharge Plan Disposition Patient Disposition: Home Condition: Stable Discharge Details Clinical Impression: Acute UTI, Falls frequently, Spinal stenosis at L4-L5 level Primary Care Provider: Patience Alvarez ED Provider: Hussain Don Home Meds and New Rx's Prescriptions: New cephalexin 500 mg capsule 500 mg PO BID 10 Days Qty: 20 0RF Continued mirtazapine 7.5 mg tablet 7.5 mg PO DAILY Eliquis 5 mg tablet 5 mg PO BID Qty: 180 3RF tamsulosin 0.4 MG capsule 1 cap PO HS Qty: 90 sertraline 100 MG tablet 50 mg PO DAILY lisinopril 10 MG tablet 10 mg PO DAILY omeprazole 20 MG capsule,delayed release(DR/EC) 20 mg PO DAILY cholecalciferol (vitamin D3) [Vitamin D3] 2,000 UNIT capsule 1 cap PO DAILY baclofen 20 mg tablet 20 mg PO DAILY rosuvastatin [Crestor] 20 MG tablet 20 mg PO HS Discharge Instructions Instructions: Urinary Tract Infection in Men (ED), Lumbar Spinal Stenosis (ED), Fall Prevention (ED) Additional Instructions: At this time your work-up reveals AN urinary tract infection, you were given IV antibiotics and a prescription for oral antibiotics were provided. We discussed admission at this time, you had a client and request to be discharged home. Please watch for new or worsening symptoms and return to the ER for any concerns. I would like you to contact your primary care provider tomorrow to discuss your ER visit and discuss your ongoing symptoms and need for outpatient reevaluation. I also strongly recommend that you contact your back specialty team at [facility] tomorrow to discuss your ER visit, recent MRI, and need for outpatient reevaluation. Discharge Data Discharge Date/Time-TO BE ENTERED AT DEPARTURE: 08/04/22 17:55 Medical Decision Making <LILIA Kelly - Last Filed: 08/11/22 23:08> Patient is a pleasant 82-year-old male past medical history of atrial flutter, aortic insufficiency, spinal stenosis presenting today with chief complaint of increased left lower extremity weakness, increased urinary incontinence, weakness, general malaise, diminished appetite. Patient chronically has weakness in the left lower extremity and tends to walk fairly stifflegged per 's report. However, the left leg has become significantly weak over the past 3 days and he suffered multiple falls. No significant head trauma, no LOC. He denies any headache or visual changes. Denies any chest pain or shortness of breath. He states over the past 3 days he has also had to urinate approximately every 20 minutes and is frequently incontinent. He reports that he is incontinent at baseline but not to this degree. He denies any recent back trauma. No fevers or chills. No recent change in medication. He denies any history of issues with his prostate. Denies any dysuria, hematuria. On exam, patient appears nontoxic lungs are clear. Patient does have a systolic murmur which he reports has been longstanding. Abdomen is benign and nontender. He has no CVA tenderness. Patient is tender throughout the lumbar spine on palpation, no step-off is appreciated. Has no saddle paresthesias. Intact rectal tone. His prostate feels to be enlarged but is not boggy and is nontender. He has weakness in the left lower extremity, particularly with dorsiflexion and flexion of the hip. He is unsteady on his gait and tends to lean forward, having difficulty stopping bending at the hip. He has 2+ distal pulses. With the patient's global symptoms and increased urinary frequency, I am concerned for potential UTI. He does not appear frankly septic. With the increased weakness as well as increased urinary incontinence, also considered cauda equina and will obtain MRI of the spine. He does not have any CVA tenderness to suggest pyelonephritis. Labs returned. No leukocytosis. Patient is slightly anemic with a hemoglobin of 12.8. Lactate within normal limits. CMP significant for elevated BUN 25. AST elevated at 75 which is new for the patient. Urinalysis is positive for nitrites, blood and bacteria. This was obtained through straight cath. Has reflexed to culture. He has not had a UTI historically, will begin him on Rocephin. At the end of my shift, care transition to Kade Don PA-C with imaging and disposition pending. I did speak with the patient's regarding possible admission given his frequent falls and deterioration at home. is not sure if her spouse would be amenable to admission and will discuss with him once he is returned from MRI. <LILIA Silva - Last Filed: 08/04/22 17:29> Patient is a pleasant 82-year-old male past medical history of atrial flutter, aortic insufficiency, spinal stenosis presenting today with chief complaint of increased left lower extremity weakness, increased urinary incontinence, weakness, general malaise, diminished appetite. Patient chronically has weakness in the left lower extremity and tends to walk fairly stifflegged per 's report. However, the left leg has become significantly weak over the past 3 days and he suffered multiple falls. No significant head trauma, no LOC. He denies any headache or visual changes. Denies any chest pain or shortness of breath. He states over the past 3 days he has also had to urinate approximately every 20 minutes and is frequently incontinent. He reports that he is incontinent at baseline but not to this degree. He denies any recent back trauma. No fevers or chills. No recent change in medication. He denies any history of issues with his prostate. Denies any dysuria, hematuria. On exam, patient appears nontoxic lungs are clear. Patient does have a systolic murmur which he reports has been longstanding. Abdomen is benign and nontender. He has no CVA tenderness. Patient is tender throughout the lumbar spine on palpation, no step-off is appreciated. Has no saddle paresthesias. Intact rectal tone. His prostate feels to be enlarged but is not boggy and is nontender. He has weakness in the left lower extremity, particularly with dorsiflexion and flexion of the hip. He is unsteady on his gait and tends to lean forward, having difficulty stopping bending at the hip. He has 2+ distal pulses. With the patient's global symptoms and increased urinary frequency, I am concerned for potential UTI. He does not appear frankly septic. With the increased weakness as well as increased urinary incontinence, also considered cauda equina and will obtain MRI of the spine. He does not have any CVA tenderness to suggest pyelonephritis. Labs returned. No leukocytosis. Patient is slightly anemic with a hemoglobin of 12.8. Lactate within normal limits. CMP significant for elevated BUN 25. AST elevated at 75 which is new for the patient. Urinalysis is positive for nitrites, blood and bacteria. This was obtained through straight cath. Has reflexed to culture. He has not had a UTI historically, will begin him on Rocephin. At the end of my shift, care transition to Kade Don PA-C with imaging and disposition pending. I did speak with the patient's regarding possible admission given his frequent falls and deterioration at home. is not sure if her spouse would be amenable to admission and will discuss with him once he is returned from MRI. 1530: Hussain Don PA-C I assumed care of this 82-year-old gentleman from my colleague LILIA Nation, please see her initial HPI and examination. Urine reflects UTI, Rocephin provided. MRI of the spine pending for cauda equina rule out. MRI reveals no evidence of disc herniation. Facet degeneration changes at L4-5, severe bilateral neural foramina narrowing and moderate central canal stenosis. Discussed MRI results with patient and family. Prior to my assuming care of the patient there was discussion regarding potential admission. and have spoken regarding admission and he wants to go home. I explained to him my concern for infection, weakness, multiple falls. Prior to discharge he was able to use a walker to ambulate slowly but steadily, this is his baseline per himself and his . We did discuss I would provide a prescription of additional antibiotics. We discussed his MRI in length, they state he has been seen by neurosurgery-back specialty at [facility] and they do plan to follow back up with them. I urged that he return for new or worsening symptoms, otherwise contact his primary care provider tomorrow to discuss his ER visit and need for outpatient reevaluation. Strict discharge and return precautions were provided. Patient understands, is agreeable to this plan, and has no additional questions or concerns upon discharge. This documentation was generated using [employer] dictation system, please disregard any oddities of phrase or misspellings. Medical Records Medical records reviewed: Yes I reviewed the patient's medical records. Imaging Data Radiologic Study: Attestation: I personally reviewed and interpreted this imaging study as follows: Imaging: MRI Radiologist's impression: Exam(s) MR LUMBAR SPINE WO EXAM: MR LUMBAR SPINE WO CLINICAL HISTORY: leg weakness, urinary incontinence. TECHNIQUE: Multiplanar multisequence MRI of the Lumbar spine was performed. COMPARISON: CR LEFT SHOULDER COMPLETE from 03/14/2015 FINDINGS: Bones: The last intervertebral disc space is designated the L5/S1 level for the numbering purpose of this examination. The vertebral body heights are well maintained. Alignment is satisfactory. The marrow signal characteristics are unremarkable. Cord: The conus tip ends at the T12 level. It is of normal size and signal intensity. T12-L1: No disc herniations or bulges are present. No central spinal canal or neural foraminal stenosis. L1-2: No disc herniations or bulges are present. No central spinal canal or neural foraminal stenosis. L2-3: No disc herniations or bulges are present. Facet degenerative changes cause mild right neural foraminal narrowing. No central canal stenosis. L3-4: No disc herniations or bulges are present. No central spinal canal stenosis. Mild bilateral neural foraminal narrowing secondary to mild facet encroachment.. L4-5: Mild loss of disc height. Mild concentric disc bulging. Facet degenerative changes cause mild spondylolisthesis. There is severe bilateral neural foraminal narrowing and moderate central canal stenosis. No central spinal canal or neural foraminal stenosis. L5-S1: No disc herniations or bulges are present. No central spinal canal or neural foraminal stenosis. The visualized SI joints and sacrum are well maintained. Soft tissues: The paraspinal soft tissues are unremarkable. Cyst lower pole right kidney. Aorta is normal in diameter. The spleen is partially included in the field of view and is enlarged at 15 cm in length. Sigmoid diverticulosis noted. IMPRESSION: No evidence disc herniation. Facet degenerative changes at L4-5 cause severe bilateral neural foraminal narrowing and moderate central canal stenosis. Splenomegaly. Findings called to Hussain Don provider in the emergency department. Sign Out No HPI <LILIA Kelly - Last Filed: 08/11/22 23:08> General Date/Time Provider Initiated Documentation: 08/04/22 13:42 . Limitations to Documentation: no limitations . Information obtained by: patient, family and RN notes reviewed . History of Present Illness 82 year old M presents to the emergency department with the chief complaint of fatigue, increased weakness, increased urinary frequency, described as moderate, and is localized to the left and lower extremity (area of chronic weakness with increase recently). Patient started experiencing this day(s) and it has been constant. No relieving factors improve symptom(s), No exacerbating factors reported . Patient notes fever/chills, loss of appetite, malaise and weakness (LLE); denies chest pain, cough, nausea/vomiting, rash and shortness of breath. Patient did receive the following treatments prior to arrival, none Related Data Home Medications Medication Instructions Recorded Confirmed cholecalciferol (vitamin D3) 50 1 cap PO DAILY 09/15/14 08/04/22 mcg (2,000 unit) capsule (Vitamin D3) lisinopril 10 mg tablet 10 mg PO DAILY 09/15/14 08/04/22 omeprazole 20 mg capsule,delayed 20 mg PO DAILY 09/15/14 08/04/22 release sertraline 100 mg tablet 50 mg PO DAILY 09/15/14 05/19/22 tamsulosin 0.4 mg capsule 1 cap PO HS #90 tab-caps 10/17/16 08/04/22 rosuvastatin 20 mg tablet (Crestor) 20 mg PO HS 08/28/17 08/04/22 baclofen 20 mg tablet 20 mg PO DAILY 05/13/21 08/04/22 mirtazapine 7.5 mg tablet 7.5 mg PO DAILY 05/13/21 08/04/22 apixaban 5 mg tablet (Eliquis) 5 mg PO BID #180 tabs 05/19/22 08/04/22 cephalexin 500 mg capsule 500 mg PO BID 10 days #20 caps 08/04/22 Previous Rx's Medication Instructions Recorded apixaban 5 mg tablet (Eliquis) 5 mg PO BID #180 tabs 05/19/22 cephalexin 500 mg capsule 500 mg PO BID 10 days #20 caps 08/04/22 Allergies Allergy/AdvReac Type Severity Reaction Status Date / Time No Known Allergies Allergy Verified 08/04/22 13:31 General Stated Complaint: Urinary HARRISON: 3 Review of Systems <LILIA Kelly - Last Filed: 08/11/22 23:08> Constitutional Constitutional: Reports as per HPI, Denies chills, Denies fever(s) and Denies headache(s) Eyes Eyes: Denies change in vision ENT Ears, Nose, Mouth, and Throat: Denies dizziness and Denies headache(s) Cardiovascular Cardiovascular: Reports as per HPI, Denies dyspnea and Denies dyspnea on exertion Respiratory Respiratory: Reports as per HPI, Denies cough, Denies pain on inspiration, Denies pain with cough, Denies dyspnea and Denies dyspnea on exertion Gastrointestinal Gastrointestinal: Reports as per HPI, Denies abdominal pain, Denies diarrhea, Denies nausea and Denies vomiting Genitourinary Genitourinary: Reports as per HPI Musculoskeletal Musculoskeletal: Reports as per HPI and Denies back pain Integumentary/Breasts Skin/Breast: Reports as per HPI and Denies rash Neurologic Neurologic: Reports as per HPI, Denies dizziness and Denies headache(s) PFSH <LILIA Kelly - Last Filed: 08/11/22 23:08> All Active Problems (Updated 08/04/22 @ 17:29 by LILIA Silva) Acute UTI (Acute) Falls frequently (Acute) Spinal stenosis at L4-L5 level (Acute) Atrial flutter (Acute) Left-sided epistaxis (Acute) Aortic insufficiency (Acute) Ascending aorta dilation (Acute) Seborrheic keratoses (Acute) Neoplasm of unspecified behavior of bone, soft tissue, and skin (Acute) Medical History (Updated 08/04/22 @ 17:29 by LILIA Silva) Anxiety Anxiety about health Aortic valve regurgitation BPH w/o urinary obs/LUTS Cholelithiasis Erectile dysfunction GERD (gastroesophageal reflux disease) Hiatal hernia History of tobacco use HTN (hypertension) Hyperlipidemia Impaired fasting glucose LLQ abdominal pain Myelopathy Spinal stenosis, cervical region Spinal stenosis, lumbar region, with neurogenic claudication Splenic lesion Surgical History Colonoscopy - MAC (09/02/17) Repair of inguinal hernia bilateral Social History Smoking/Tobacco Use Status: Former Tobacco Use Quit Date: 08/31/78 Tobacco: How many years used: 20 Smoking risk assessment performed?: Yes Alcohol Intake: current Alcohol Intake frequency: 0-2 drinks per day Alcohol type: hard liquor Drug use: Never Substance use type: does not use What is your relationship status?: Panel score (0-1 are the most socially isolated patients): 1 What type of physical activity do you participate in: other Details: stationary cycle Duration: 15-30 minutes/day Frequency: daily Do you feel safe at home: Yes Do you feel safe in your relationship?: Yes Exam <LILIA Kelly - Last Filed: 08/11/22 23:08> Const General: cooperative, healthy appearing, comfortable, no acute distress and well developed Nutritional Appearance: average body habitus and well nourished Orientation: alert, awake and oriented x3 [facility] Head: normal to inspection Ears: hearing grossly normal bilaterally Mouth: moist mucous membranes Chest Chest: normal inspection of the chest, normal palpation of entire chest wall and no crepitus Resp Effort & Inspection: normal respiratory effort, able to speak in complete sentences and no respiratory distress Auscultation: clear to auscultation bilaterally, no rales, no rhonchi and no wheezes Cardio Rate: regular rate Rhythm: regular rhythm Heart Sounds: S1 normal and S2 normal GI Inspection: normal to inspection, no edema and non-distended Palpation: soft, no hepatosplenomegaly, not firm, no guarding, not rigid and nontender Auscultation: normal bowel sounds Back/Spine/Pelvis Back: no CVA tenderness Thoracic/Lumbar Spine: thoracic and lumbar spine normal to inspection, No thoraco-lumbar ROM limited, No thoraco-lumbar spasm, No thoracic spinal tenderness and lumbar spinal tenderness (diffusely tender, no focal area of pain) Skin General skin exam: no rashes or lesions noted Trauma: no lacerations or abrasions Neuro General: patient alert, patient awake and patient oriented x3 Cognition: normal cognition Speech: speech normal Gait: gait abnormal and shuffling Motor: strength not 5/5 throughout (weakness in the LLE) Extrem General: normal to inspection, capillary refill normal, no pedal edema and no calf tenderness Psych Appearance: grossly normal and well kempt Mental Status: mental status grossly normal Speech and Movement: speech and movement normal Course <LILIA Kelly - Last Filed: 08/11/22 23:08> Vital Signs Vital signs: Vital Signs Temperature 37 C 08/04/22 13:24 Pulse 87 08/04/22 13:24 Respiratory Rate 18 08/04/22 13:24 Blood Pressure 156/68 H 08/04/22 13:24 Pulse Oximetry 94 08/04/22 13:24 Temperature 37 C 08/04/22 13:24 Temperature Source Temporal Artery Scan 08/04/22 13:24 Pulse 87 08/04/22 13:24 Respiratory Rate 18 08/04/22 13:24 Respiratory Effort Non-Labored 08/04/22 13:33 Blood Pressure 156/68 H 08/04/22 13:24 Blood Pressure Position Sitting 08/04/22 13:24 Pulse Oximetry 94 08/04/22 13:24 Oxygen Delivery Method Room Air 08/04/22 13:24 Oxygen Flow Rate 0 08/04/22 13:24 Sign Out <LILIA Kelly - Last Filed: 08/11/22 23:08> Sign Out Data: Sign Out Comment: Care transition to Kade Don PA-C. Patient pete levi in MRI for evaluation of back pain, increased lower extremity weakness and urinary incontinence. Diagnosed with UTI, given IV Rocephin. Has had frequent falls at home. Does not appear septic. However, given the increased weakness, I have begun discussion around admission with but she is not clear if he would be amenable to admission. Last updated by Michela Nation PA at 08/04/22 16:15 PAWSS <LILIA Kelly - Last Filed: 08/11/22 23:08> Have you Been Recently Intoxicated or Drunk Within the Last 30 days?: No Have you Ever Experienced Previous Episodes of Alcohol Withdrawal?: No Have you ever Experienced Withdrawal Seizures?: No Have you ever Experienced Delirium Tremens(DT)s?: No Have you ever undergone Alcohol Rehabilitation Treatment (i.e, inpt ot outpatient treatment programs)?: No Have you ever Experienced Blackouts?: No Have you ever Combined Alcohol with other Downers within the last 90 days?: No Have you ever Combined Alcohol with any other Substance of Abuse during the last 90 days?: No Positive Blood Alcohol level on Presentation? [PCS.BAL]: No Evidence of Increased Autonomic Activity (i.e. HR>120, tremor, sweating, agitation, nausea)?: No Result: 0 <LILIA Silva - Last Filed: 08/04/22 17:29> Result: 0
--- NOTE | 2022-08-04 14:15 | DI.MRI_ITS ---
Exam(s) MR LUMBAR SPINE WO EXAM: MR LUMBAR SPINE WO CLINICAL HISTORY: leg weakness, urinary incontinence. TECHNIQUE: Multiplanar multisequence MRI of the Lumbar spine was performed. COMPARISON: CR LEFT SHOULDER COMPLETE from 03/14/2015 FINDINGS: Bones: The last intervertebral disc space is designated the L5/S1 level for the numbering purpose of this examination. The vertebral body heights are well maintained. Alignment is satisfactory. The ma rrow signal characteristics are unremarkable. Cord: The conus tip ends at the T12 level. It is of normal size and signal intensity. T12-L1: No disc herniations or bulges are present. No central spinal canal or neural foraminal stenos is. L1-2: No disc herniations or bulges are present. No central spinal canal or neural foraminal stenosis . L2-3: No disc herniations or bulges are present. Facet degenerative changes cause mild right neural f oraminal narrowing. No central canal stenosis. L3-4: No disc herniations or bulges are present. No central spinal canal stenosis. Mild bilateral ne ural foraminal narrowing secondary to mild facet encroachment.. L4-5: Mild loss of disc height. Mild concentric disc bulging. Facet degenerative changes cause mild spondylolisthesis. There is severe bilateral neural foraminal narrowing and moderate central canal stenosis. No central spinal canal or neural foraminal stenosis. L5-S1: No disc herniations or bulges are present. No central spinal canal or neural foraminal stenosi s. The visualized SI joints and sacrum are well maintained. Soft tissues: The paraspinal soft tissues are unremarkable. Cyst lower pole right kidney. Aorta is n ormal in diameter. The spleen is partially included in the field of view and is enlarged at 15 cm in length. Sigmoid diverticulosis noted. IMPRESSION: No evidence disc herniation. Facet degenerative changes at L4-5 cause severe bilateral neural forami nal narrowing and moderate central canal stenosis. Splenomegaly. Findings called to Hussain Don, provider in the emergency department. Unexpected findings DATA REPOSITORY:
[2022-08-04] MEDS: Normal Saline 500 ML IV (14:38)
[2022-08-04 14:41] LABS: Abs Immature Grans 0.04 10^3/uL (0.0-0.06); Absolute Basophil Count 0.03 10^3/uL (0.0-0.2); Absolute Eosinophil Count 0.03 10^3/uL (0.0-0.7); Absolute Lymphocyte Count 0.32 10^3/uL (1.2-3.4); Absolute Monocyte Count 0.55 10^3/uL (0.1-0.8); Absolute Neutrophil Count 3.45 10^3/uL (1.2-6.7); Basophils % 0.7; Eosinophils % 0.7; HCT 38.2 % (40.0-50.0); HGB 12.8 g/dL (13.5-17.5); Immature Grans % 0.9; Lymphocytes % 7.2; MCH 30.5 pg (27.0-33.0); MCHC 33.5 % (32.0-36.0); MCV 91 fL (80-95); MPV 9.1 fL (8.0-11.0); Monocytes % 12.4; Neutrophils % 78.1; Platelet Count 103 10^3/uL (130-400); RDW 13.2 % (11.8-14.1); RDW-SD 44.4 fL; WBC 4.42 10^3/uL (4.4-10.8)
[2022-08-04 15:04] LABS: Bilirubin Negative (Negative); Blood Moderate (Negative); Clarity Sl Cloudy (Clear); Glucose 100 mg/dL (Negative); Ketones Negative (Negative); Leukocyte Esterase Small (Negative); Nitrite Positive (Negative); Specific Gravity >= 1.030 (1.005-1.025); Urobilinogen >=8.0 EU/dL (Up TO 0.2)
[2022-08-04 15:15] LABS: ALT 50 U/L (16-63); AST 75 U/L (15-37); Albumin 3.4 g/dL (3.4-5.0); Alkaline Phosphatase 90 U/L (46-116); Anion Gap 8.6 mmol/L (3-11); BUN 25 mg/dL (7-18); CO2 29.4 mmol/L (21.0-32.0); Calcium 8.5 mg/dL (8.5-10.1); Chloride 103 mmol/L (98-107); Estimated GFR 75.14 (mL/min/1.73m2); Glucose 116 mg/dL (74-106); Potassium 3.7 mmol/L (3.5-5.1); Sodium 141 mmol/L (136-145); Total Protein 7.4 g/dL (6.4-8.2)
[2022-08-04 15:18] LABS: Bacteria Many HPF (Negative); C & S Indicated? Yes; Casts Negative LPF (Negative); Crystals Negative HPF (Negative); Epithelial Cells Negative HPF (Negative); Mucus Heavy (Negative); WBC 20-50 HPF (0-5)
[2022-08-04 15:34] LABS: COVID-19 PCR Negative (Negative); Influenza A PCR Negative (Negative); Influenza B PCR Negative (Negative); RSV PCR Negative (Negative)
[2022-08-04 16:03] LABS: Source Nasopharynx
[2022-08-04] MEDS: cefTRIAXone 1 GM/50 ML BAG IVPB (16:44)
== END 2022-08-04 17:55 | disposition home or self-care (01) ==
PROVIDERS: Physician Assistant; Emergency Provider Physician Assistant; PCP Family Medicine
DX: N39.0 Urinary tract infection, site not specified (principal); M48.061 Spinal stenosis, lumbar region without neurogenic claudication; I48.92 Unspecified atrial flutter; I10 Essential (primary) hypertension; R29.6 Repeated falls; R74.01 Elevation of levels of liver transaminase levels; R79.89 Other specified abnormal findings of blood chemistry; Z79.01 Long term (current) use of anticoagulants; Z20.822 Contact with and (suspected) exposure to COVID-19
CPT/HCPCS: 80053; 87077; 87637; 96365; 99284; 72148; 81003; 81015; 83605; 85025; 87086; 87186; J0696; J3490

== ENCOUNTER 2022-09-16 01:57 | Outpatient (CLI) | payer MEDICARE, SELFPAY ==
--- NOTE | 2022-09-16 | DI.US_ITS ---
Exam(s) US ABDOMEN EXAM: US ABDOMEN CLINICAL HISTORY: SPLENOMEGALY, R16.1, ELEVATED LIVER ENZYMES, R74.8 TECHNIQUE: Ultrasound of complete upper abdomen performed using standard protocol. COMPARISON: CT ABD PELVIS WITH CONTRAST from 08/26/2017 FINDINGS: There is no ascites evident. LIVER: There are no hepatic lesions evident nor obvious dilatation of intrahepatic ducts. GALLBLADDER/BILIARY: Multiple tiny gallstones noted. Gallbladder is not edematous. The common hepatic duct isnot dilated, measuring 2mm at the level of daphnie hepatis. PANCREAS: Not well seen due to overlying bowel gas. No obvious abnormality SPLEEN: Spleen is enlarged and exhibits abnormal heterogeneous echotexture. No perisplenic fluid. KIDNEYS:Kidneys exhibit normal size with no evidence of solid mass, calculus, nor hydronephrosis. The re is a small parapelvic cyst in the right kidney. ABDOMINAL AORTA: Atherosclerotic distally where the lumen is dilated to approximately 2.5 cm, as evid ent on prior CT scan of 2017. IVC: Normal diameter where visualized. IMPRESSION: 1. Cholelithiasis. There are multiple tiny layering gallstones in the gallbladder lumen. There is no gallbladder wall edema nor dilatation of the biliary tree. 2. Abnormal spleen. Spleen is both enlarged and exhibits abnormal diffuse heterogeneous echotexture. I note that the spleen also appeared abnormal on CT scan performed 08/26/2017, containing numerous a bnormal hypodensities at that time. Appropriate follow-up recommended. 3. There is no ascites. DATA REPOSITORY:
== END 2022-09-16 02:17 ==
LOC: DI 01:57
PROVIDERS: PCP Family Medicine; Visit Provider Family Medicine
DX: K80.20 Calculus of gallbladder without cholecystitis without obstruction (principal); R16.1 Splenomegaly, not elsewhere classified; R74.8 Abnormal levels of other serum enzymes
CPT/HCPCS: 76700

== ENCOUNTER 2022-10-27 10:47 | Outpatient (REF) | payer MEDICARE, SELFPAY ==
[2022-10-27 18:35] LABS: HCT 40.4 % (40.0-50.0); HGB 13.4 g/dL (13.5-17.5); MCH 29.6 pg (27.0-33.0); MCHC 33.2 % (32.0-36.0); MCV 89 fL (80-95); MPV 9.2 fL (8.0-11.0); Platelet Count 118 10^3/uL (130-400); RBC 4.52 10^6/uL (4.36-5.78); RDW 13.6 % (11.8-14.1); RDW-SD 44.1 fL; WBC 5.25 10^3/uL (4.4-10.8)
[2022-10-27 19:08] LABS: ALT 16 U/L (16-63); AST 18 U/L (15-37); Albumin 3.7 g/dL (3.4-5.0); Alkaline Phosphatase 120 U/L (46-116); Anion Gap 7.8 mmol/L (3-11); BUN 20 mg/dL (7-18); Bilirubin, Total 0.7 mg/dL (0.2-1.0); CO2 30.2 mmol/L (21.0-32.0); CREATININE 1.1 mg/dL (0.70-1.30); Chloride 105 mmol/L (98-107); Estimated GFR 67.02 (mL/min/1.73m2); Ferritin 54 ng/mL (26-388); Glucose 176 mg/dL (74-106); Potassium 3.9 mmol/L (3.5-5.1); Sodium 143 mmol/L (136-145); Total Protein 7.5 g/dL (6.4-8.2); Vitamin B12 983 pg/mL (193-986)
[2022-10-27 19:11] LABS: Hemoglobin A1C 5.7 % (<5.7)
== END 2022-10-27 10:48 | disposition home or self-care (01) ==
LOC: NCHCN 10:47
PROVIDERS: PCP Family Medicine; Visit Provider Family Medicine
DX: D64.9 Anemia, unspecified (principal); R73.03 Prediabetes; I10 Essential (primary) hypertension; R53.1 Weakness; E53.8 Deficiency of other specified B group vitamins
CPT/HCPCS: 80053; 85027; 82607; 82728; 83036

== ENCOUNTER → 2022-11-17 09:31 | Outpatient (BNVA) | payer MEDICARE, SELFPAY | PROVIDERS: PCP Family Medicine; Visit Provider Internal Medicine Cardiovascular Disease | DX: I35.1 Nonrheumatic aortic (valve) insufficiency (principal); I77.810 Thoracic aortic ectasia; I48.92 Unspecified atrial flutter; Z79.01 Long term (current) use of anticoagulants | CPT/HCPCS: 99214; 99213 ==

== ENCOUNTER → 2023-05-12 00:49 | Outpatient (CLI) | payer MEDICARE, SELFPAY ==
--- NOTE | 2023-05-12 07:45 | DI.US_ITS ---
APPROVED REPORT EXAM: Comprehensive 2D, Doppler, and color-flow Echocardiogram Patient Location: Out-Patient Machine Group Leader: Stacie Miranda RDCS (AE) Indications: Aortic regurgitation, Dilated ascending aorta Other Information Study Quality: Adequate. Technically limited study due to lung disease. Conclusion Left ventricular wall thickness and chamber size. Ejection fraction is 50 to 55%. The patient is in atrial flutter with [id number] variation. No segmental wall motion abnormalities are noted Normal right ventricular size and systolic function Left atrium is mildly enlarged. Right atrial size is normal The aortic valve is trileaflet and mildly sclerotic with moderate regurgitation Normal mitral valve with mild to moderate regurgitation Normal tricuspid valve with mild regurgitation. Estimated right ventricular systolic pressure is 39 mmHg Dilated ascending aorta measuring 4.13 cm Wall motion Left Ventricle The left ventricle is normal size. Left ventricular systolic function is borderline. Mild concentric left ventricular hypertrophy. There are no segmental wall motion abnormalities There is no ventricula r septal defect visualized. LVEF is 50-55% Right Ventricle The right ventricle is normal size. The right ventricular systolic function is normal. Atria Left atrium is mildly dilated. The right atrium size is normal. The interatrial septum is intact with no evidence for an atrial septal defect. Aortic Valve The Aortic valve is mildly Aortic valve is trileaflet. sclerotic. There is no aortic valvular stenosi s. Moderate aortic regurgitation. Mitral Valve The mitral valve is normal in structure. No evidence of mitral valve stenosis. Mild to moderate huyen l regurgitation. Tricuspid Valve The tricuspid valve is normal in structure. There is no tricuspid valve stenosis. Mild tricuspid regu rgitation. The RVSP is 39.4mmHg. Pulmonic Valve The pulmonary valve is normal in structure. There is no pulmonic valvular stenosis. Trace pulmonic re gurgitation. Great Vessels The aortic root is normal in size. The ascending aorta is moderately dilated. Aortic arch is normal i n caliber. IVC is normal in size and collapses >50% with inspiration. Pericardium There is no pericardial effusion. 2D Dimensions IVSD d PLAX 1.27 cm M: 0.6-1.2 Ao Root d 3.48 cm M: 3.1 - 3.7 LVPW d PLAX 1.26 cm M: 0.6 - 1.2 Ao Asc Diam d 4.13 cm M: 2.6 - 3.4 LVID d PLAX 4.51 cm M: 4.2 - 5.8 LVDs 3.54 cm M: 2.5 - 4.0 LV EF Teichholz 43.8 % FS 21.54 % LV EDV (Teich) 92.9 mL LV ESV (Teich) 52.2 mL M-Mode TAPSE 2.05 cm (M/F) >1.7 Auto EF LV EDV A4C 134.8 mL LV EDV A2C 148.5 mL LV EDV BP 144.3 mL LV ESV A4C 76.0 mL LV ESV A2C 79.7 mL LV ESV BP 78.6 mL LVEF(%) A4C 43.6 % LVEF(%) A2C 46.4 % LVEF(%) BP 45.5 % LV SV A4C 58.8 ml LV SV A2C 68.9 ml LV SV BP 65.7 ml LV CO A4C 3.1 L/min LV CO A2C 3.4 L/min LV CO BP 3.3 L/min HR A4C 53.02 BPM HR A2C 49.32 BPM LV EDV Index (BP) LA Volume LA Length A4C 6.8 cm LA Length A2C 6.5 cm LA Area A4C s 28.47 cm2 LA Area A2C s 23.21 cm2 LA Vol A4C A-L 101.27 mL LA Vol A2C A-L 70.85 mL LA Vol Biplane A-L 86.9 mL LA Vol/BSA A4C A-L LA Vol/BSA A2C A-L LA Vol/BSA BP A-L 48.0 mL/m2 LA Vol A4C MOD 92.4 mL LA Vol A2C MOD 68.0 mL LA Vol BP MOD 79.2 mL RA Volume RA Area A4C 18.2 cm2 RA ESV A4C (A-L) 56.8mL RA Vol/BSA A4C A-L RA Length A4C 4.9 cm RA ESV A4C (MOD) 55.8mL LV Diastology MV E' lateral 0.113 (>0.1 m/s) MV E Vmax 0.86 (0.4-1.3 m/s) Aortic Valve AoV Vmax 1.83 m/s LVOT Vmax 1.50 m/s AoV Peak Grad 36.8 mmHg LVOT Peak Grad 9.0 mmHg AoV Area (Vmax) 2.67 cm2 LVOT VTI 0.302 m AoV VTI 0.405 m LVOT Mean Grad 3.9 mmHg AoV Mean Aron. 1.18 m/s LVOT SV 98.94 mL AoV Mean Grad 6.6 mmHg LVOT Diam s 2.00 cm AoV Area (VTI) 2.45 cm2 AV Regurg Peak Gr. 60.00 mmHg Velocity Ratio 0.82 AR Decel [place] 2.4m/sec2 AR DT 1607 msec AR PHT 466 msec AR Vmax 3.87 m/s Mitral Valve MV Area PHT 8.28 cm2 Pulmonary Valve PV Vmax 1.28 (0.5-1.5 m/s) RVOT Vmax 0.81 m/s PV Peak Grad 6.5 mmHg RVOT Peak Gr. 2.6 mmHg PV Mean Aron 0.90 m/s RVOT VTI 0.159 m PV Mean Grad 3.5 mmHg RVOT Mean Gr. 1.3 mmHg Tricuspid Valve RA Pressure 3.00 mmHg TR Vmax 3.02 m/s TV S' 0.14 m/s TR Peak Grad 36.4 mmHg RVSP (TR) 39.4 mmHg
== END ==
PROVIDERS: PCP Family Medicine; Visit Provider Internal Medicine Cardiovascular Disease
DX: I77.810 Thoracic aortic ectasia (principal)
CPT/HCPCS: 93306

== ENCOUNTER 2023-05-14 16:47 | Outpatient (REF) | payer MEDICARE, SELFPAY | END 2023-05-14 16:48 | disposition home or self-care (01) | LOC: NCHCN 16:47 | PROVIDERS: PCP Family Medicine; Visit Provider Nurse Practitioner Family | DX: R30.0 Dysuria (principal); R35.0 Frequency of micturition; R31.29 Other microscopic hematuria; R82.79 Other abnormal findings on microbiological examination of urine | CPT/HCPCS: 87077; 87086; 87186 ==

== ENCOUNTER 2023-05-17 09:29 | Inpatient (IN) | payer MEDICARE, SELFPAY ==
[2023-05-17] VITALS (75 sets, daily range): BP systolic 104–159; BP diastolic 38–63; PULSE 61–169; RESP 11–24; TEMP 36.4–37.9; O2SAT 88–98
--- NOTE | 2023-05-17 09:30 | RT.EKG_ITS ---
APPROVED REPORT Exam: Resting ECG Reason for Exam: High heart Rate Patient Location: E HR:89 bpm ECG Measurements Heart Rate 89 AXIS TX 188 P 256 QRSd 170 QRS 257 QT 427 T -50 QTc 519 Conclusion Sinus or ectopic atrial rhythm...P axis (-45,135) Consider dextrocardia...P, QRS axis rightward aflutter
--- NOTE | 2023-05-17 09:45 | DI.CT_ITS ---
Exam(s) CT HEAD CERVICAL SPINE WO EXAM: CT HEAD CERVICAL SPINE WO CLINICAL HISTORY: fall. TECHNIQUE: Imaging Protocol: Axial computed tomography images with coronal and sagittal reformatted images were created and reviewed COMPARISON: No exams were available for comparison FINDINGS: Head CT Ventricles and Extra axial spaces: Normal in size and morphology for the patient's age. Hemorrhage: None. Cerebral parenchyma: Atrophy and white matter changes consistent with small vessel disease. Midline shift: None. Brainstem/Cerebellum: Normal. Calvarium: Normal. Visualized Paranasal sinuses/Mastoids: Clear. Soft tissues: Unremarkable. Cervical Spine CT BONES: Vertebral body heights are maintained. Alignment is normal. There is no evidence of acute frac ture. Advanced degenerative disc changes and facet degenerative changes are seen . SOFT TISSUES: No paraspinal hematoma. The airway appears intact. No pneumothorax is seen at the lung apices. IMPRESSION: Head CT: No acute abnormality. C-spine CT: Degenerative changes, no acute abnormality. RADIATION DOSE DELIVERED: 1,268.76mGy.cm Total DLP DATA REPOSITORY: All CT scans at this facility are submitted to the National Radiology Data Registry (NRDR) Dose Index Registry (DIR) with the [employer] (ACR). RADIATION OPTIMIZATION: All CT scans at this facility use at least one of these dose optimization te chniques: automated exposure control; mA and/or kV adjustment per patient size (includes targeted exa ms where dose is matched to clinical indication); or iterative reconstruction.
--- NOTE | 2023-05-17 09:45 | DI.CT_ITS ---
Exam(s) CT CHEST/ABD/PEL W CT THORACIC LUMBAR SPINE REC EXAM: CT CHEST/ABD/PEL W CLINICAL HISTORY: fall- weakness. TECHNIQUE: Imaging Protocol: Axial computed tomography images with coronal and sagittal reformatted images were created and reviewed Images of the thoracic and lumbar spine were reconstructed from the chest abdomen pelvic CT in bone a lgorithm.. CONTRAST MATERIAL: Intravenous: Omnipaque 350 Contrast volume:100 ml Oral: / no COMPARISON: CT ABD PELVIS WITH CONTRAST from 08/26/[address] THORACIC LUMBAR SPINE REC from 05/17/2023 FINDINGS: CHEST: Tracheobronchial tree: Patent where visualized. Pulmonary parenchyma: No consolidation or dominant measurable mass. Basilar atelectasis. Pleura: No effusion or pneumothorax. Lymph nodes: Within normal limits. Aorta: Thoracic portion non-dilated. Heart: Normal size. No pericardial effusion. Coronary artery calcifications present. Large hiatal hernia. Bones: Dextroscoliosis. Prominent thoracic kyphosis. Prominent endplate osteophytes in the mid thor acic region and in the lower thoracic region.. Slight anterior wedging of the C6-T6 and T7 vertebral bodies. No lytic or blastic lesions.No acute compression fractures. ABDOMEN and PELVIS: Liver: Normal density. No measurable mass. Gallbladder and biliary tract: Multiple tiny stones again noted layering in gallbladder. No evidence wall thickening. No biliary dilatation. Pancreas: Normal density, no abnormal calcifications or inflammatory process. Spleen: Enlarged. Innumerable low-density lesions noted within spleen Kidneys: Normal size, contour and axis. No radiodense stones or obstructive uropathy. No suspicious m asses seen. Adrenal glands: No masses seen. Aorta: Abdominal portion non-dilated. Marked atherosclerotic changes. Focal area of outpouching in the right side of the infrarenal aorta with focal mural thrombus consistent with penetrating ulcer. It measures 2.8 cm in length and 1.5 cm AP. Increased in size from prior. Lymph nodes: Within normal limits. Soft tissues: Unremarkable. Bladder: Mild wall thickening could represent under distension, cystitis or chronic outflow obstructi on. Bowel: On severe diverticulosis. No evidence of diverticulitis. No obstruction or bowel wall thicke irving. Large quantity of stool in the rectum. Peritoneal cavity: No ascites. No focal collection or mesenteric inflammatory response. Reproductive organs: Left-sided prostate nodule. Lumbar spine: No evidence of fracture. Facet degenerative changes noted at L4-5 causing mild spondyl olisthesis. Mild disc bulging. Bilateral neural foraminal narrowing. Moderate central canal stenos is. The remaining levels show mild bulging. No disc herniation at any level. IMPRESSION: Prominent thoracic kyphosis without evidence of acute fracture. Degenerative changes in the lumbar s pine greatest at L4-5 with moderate central canal stenosis and bilateral neural foraminal narrowing. No acute post traumatic abnormality in the abdomen or pelvis. Increased size of ulcer in the right infrarenal abdominal aorta. Prostate nodule. Bladder wall thickening. RADIATION DOSE DELIVERED: 1217.67 mGy.cm Total DLP DATA REPOSITORY: All CT scans at this facility are submitted to the National Radiology Data Registry (NRDR) Dose Index Registry (DIR) with the [employer] (ACR). RADIATION OPTIMIZATION: All CT scans at this facility use at least one of these dose optimization te chniques: automated exposure control; mA and/or kV adjustment per patient size (includes targeted exa ms where dose is matched to clinical indication); or iterative reconstruction.
[2023-05-17] MEDS: Normal Saline 250 ML 500 ML IV (10:03)
[2023-05-17 10:06] LABS: Abs Immature Grans 0.05 10^3/uL (0.0-0.06); Absolute Basophil Count 0.03 10^3/uL (0.0-0.2); Absolute Lymphocyte Count 0.13 10^3/uL (1.2-3.4); Absolute Monocyte Count 0.25 10^3/uL (0.1-0.8); Absolute Neutrophil Count 7.62 10^3/uL (1.2-6.7); Basophils % 0.4; HCT 39.3 % (40.0-50.0); HGB 13.2 g/dL (13.5-17.5); Immature Grans % 0.6; Lymphocytes % 1.6; MCH 30.4 pg (27.0-33.0); MCHC 33.6 % (32.0-36.0); MCV 91 fL (80-95); MPV 9.2 fL (8.0-11.0); Monocytes % 3.1; Neutrophils % 94.3; Platelet Count 103 10^3/uL (130-400); RBC 4.34 10^6/uL (4.36-5.78); RDW 13.2 % (11.8-14.1); RDW-SD 43.8 fL; WBC 8.08 10^3/uL (4.4-10.8)
[2023-05-17 10:24] LABS: ALT 23 U/L (16-63); AST 31 U/L (15-37); Albumin 3.4 g/dL (3.4-5.0); Alkaline Phosphatase 101 U/L (46-116); Anion Gap 7.8 mmol/L (3-11); BUN 21 mg/dL (7-18); Bilirubin, Total 1.4 mg/dL (0.2-1.0); CO2 28.2 mmol/L (21.0-32.0); CREATININE 1.3 mg/dL (0.70-1.30); Calcium 9.2 mg/dL (8.5-10.1); Chloride 102 mmol/L (98-107); Estimated GFR 54.51 (mL/min/1.73m2); Glucose 160 mg/dL (74-106); Magnesium 1.9 mg/dL (1.8-2.4); Potassium 3.8 mmol/L (3.5-5.1); Sodium 138 mmol/L (136-145); Total Protein 7.2 g/dL (6.4-8.2)
[2023-05-17 10:27] LABS: Troponin I 302 ng/L (<or=60)
[2023-05-17 10:48] LABS: Bilirubin Negative (Negative); Blood Large (Negative); Clarity Clear (Clear); Glucose Negative (Negative); Ketones 15 mg/dL (Negative); Leukocyte Esterase Negative (Negative); Nitrite Positive (Negative); Specific Gravity 1.015 (1.005-1.025); pH 5.5 (5-8)
[2023-05-17 10:55] LABS: Bacteria Many HPF (Negative); C & S Indicated? Yes; Casts Negative LPF (Negative); Crystals Negative HPF (Negative); Epithelial Cells Few HPF (Negative); Mucus Trace (Negative)
[2023-05-17] MEDS: Omnipaque 350 MG/ML 100 ML BTL IJ (11:05)
[2023-05-17] MEDS: Normal Saline - Diluent 50 ML VIAL IJ (11:05)
[2023-05-17] MEDS: Normal Saline Flush 10 ML SYR IVP (11:06)
[2023-05-17] MEDS: cefTRIAXone 1 GM/50 ML BAG IVPB (11:23)
--- NOTE | 2023-05-17 11:29 | DI.VRAD_ITS ---
PROCEDURE INFORMATION: Exam: CT Head Without Contrast Exam date and time: 05/17/2023 11:04 AM Age: 83 years old Clinical indication: Injury or trauma; Fall; Blunt trauma (contusions or hematomas) TECHNIQUE: Imaging protocol: Computed tomography of the head without contrast. COMPARISON: No relevant prior studies available. FINDINGS: Brain: Diffuse involutional changes and white matter hypodensities consistent with age. These findings are most likely due to atrophy and small vessel disease. No acute hemorrhage or acute terratorial infarct. Vascular calcifications at the [place] of [place]. Cerebral ventricles: No gross venticulomegaly. Paranasal sinuses: No significant opacity or air fluid levels. Mastoid air cells: Mastoids: No significant abnormality. Orbital cavities: No acute abnormality. Bilateral lens replacements Bones/joints: No acute fracture. Soft tissues: No significant abnormality. IMPRESSION: No acute intracranial abnormality. If concern persists, consider MRI or CTA. PROCEDURE INFORMATION: Exam: CT Cervical Spine Without Contrast Exam date and time: 05/17/2023 11:04 AM Age: 83 years old Clinical indication: Injury or trauma; Fall; Blunt trauma (contusions or hematomas) TECHNIQUE: Imaging protocol: Computed tomography of the cervical spine without contrast. COMPARISON: No relevant prior studies available. FINDINGS: Bones/joints: Age appropraite degenerative changes are present without acute fracture, worrisome malalignment, or significant compression deformity. Grade 1 anterolisthesis of C4 on C5 probably degenerative. Spinal epidural space: No epidural fluid. Prevertebral and retropharyngeal spaces: No prevertebral soft tissue swelling. Lungs: Lung apices are normal. Vasculature: Calcified carotid artery plaques bilaterally. Follow-up non-emergent ultrasound recommended. Soft tissues: Unremarkable. IMPRESSION: No acute bony abnormality. Dictated and Authenticated by: Geoffrey Walker MD. Ordering:JACKY Buchanan MD
--- NOTE | 2023-05-17 11:43 | DI.VRAD_ITS ---
PROCEDURE INFORMATION: Exam: CT Thoracic Spine Without Contrast Exam date and time: 05/17/2023 11:13 AM Age: 83 years old Clinical indication: Injury or trauma; Fall; Other: Weakness TECHNIQUE: Imaging protocol: Computed tomography of the thoracic spine without contrast. COMPARISON: CT HEAD CERVICAL SPINE WO 05/17/2023 11:04 AM FINDINGS: Bones/joints: Scoliosis, osteopenia, and degenerative changes are noted without convincing evidence of acute fracture. Soft tissues: The non spinal elements are evaluated separately including cardiomegaly with atherosclerotic1 disease and hiatal hernia. Dependent likely atelectatic changes in the lungs. Reference to the same-day CTA chest, abdomen, and pelvis recommended. IMPRESSION: No acute fracture. PROCEDURE INFORMATION: Exam: CT Lumbar Spine Without Contrast Exam date and time: 05/17/2023 11:13 AM Age: 83 years old Clinical indication: Injury or trauma; Fall; Other: Weakness TECHNIQUE: Imaging protocol: Computed tomography of the lumbar spine without contrast. COMPARISON: MR LUMBAR SPINE WO 08/04/2022 3:43 PM FINDINGS: Bones/joints: Osteopenia, degenerative changes common a scoliosis with grade 1 anterolisthesis of L4 on L5 and grade 1 retrolisthesis of L5 on S1. No spondylolysis. No acute fracture. Symmetric SI joints. Soft tissues: The non spinal elements are evaluated separately including the multiple lesions in this enlarged spleen, atherosclerotic changes of the mildly dilated aorta with potential dissection flap within, sigmoid diverticuli, the heterogeneous enlarged prostate, in the distended rectal vault. Reference to the same-day CT of the chest, abdomen, and pelvis recommended. No acute fracture. IMPRESSION: No acute bony abnormality. Dictated and Authenticated by: Geoffrey Walker MD. Ordering:KASEY Gomez MD
--- NOTE | 2023-05-17 11:54 | DI.VRAD_ITS ---
Addendum created by Abhilash Nguyen MD on 05/17/2023 11:57:50 AM EDT: THIS REPORT CONTAINS FINDINGS THAT MAY BE CRITICAL TO PATIENT CARE. The findings were verbally communicated via telephone conference at 11:50 AM EST on 05/17/2023 with [facility]. The findings were acknowledged and understood. Initial report created on 05/17/2023 11:53:59 AM EDT: PROCEDURE INFORMATION: Exam: CT Chest With Contrast; Diagnostic Exam date and time: 05/17/2023 11:13 AM Age: 83 years old Clinical indication: Injury or trauma; Fall; Generalized; Blunt trauma (contusions or hematomas) TECHNIQUE: Imaging protocol: Diagnostic computed tomography of the chest with contrast. Contrast material: OMNIPAQUE 350; Contrast volume: 100 ml; Contrast route: INTRAVENOUS (IV); COMPARISON: CT HEAD CERVICAL SPINE WO 05/17/2023 11:04 AM FINDINGS: Thyroid: The thyroid gland is normal. Lungs: No consolidations. A few senescent cysts in the lower lung zones. Minimal amount of fibrosis in the lower lung zones. Pleural spaces: Unremarkable. No pneumothorax. No pleural effusion. Heart: The heart is normal in size and configuration. There are coronary artery calcifications. No pericardial effusion. Lymph nodes: Unremarkable. No enlarged lymph nodes. Vasculature: Unremarkable. No aortic aneurysm. Bones/joints: Bony demineralization. Exaggeration of the kyphosis of the thoracic spine. No spondylolisthesis or fracture. [id number] size spurs along the anterior vertebra endplates. Soft tissues: Unremarkable. IMPRESSION: No acute findings. PROCEDURE INFORMATION: Exam: CT Abdomen And Pelvis With Contrast Exam date and time: 05/17/2023 11:13 AM Age: 83 years old Clinical indication: Injury or trauma; Fall; Generalized; Blunt trauma (contusions or hematomas) TECHNIQUE: Imaging protocol: Computed tomography of the abdomen and pelvis with contrast. Contrast material: OMNIPAQUE 350; Contrast volume: 100 ml; Contrast route: INTRAVENOUS (IV); COMPARISON: CT ABD PELVIS WITH CONTRAST 08/26/2017 10:42 AM FINDINGS: Liver: The liver measures 17.6 cm in length and has a granular appearance. There are no cysts or masses. Gallbladder and bile ducts: There is no common bile duct dilation. The gallbladder has many tiny calcified stones. No wall thickening or pericholecystic fluid. Pancreas: The pancreas is mildly fatty infiltrated. There are no cysts or masses. Spleen: Unchanged multiple varying sized hypodensities within the spleen. Adrenal glands: The adrenal glands are normal. Kidneys and ureters: Normal. No hydronephrosis. Stomach and bowel: Moderate-sized hiatal hernia containing most of the stomach. No signs of bowel obstruction. There are many colonic diverticula. Appendix: The appendix is not identified, but there are no inflammatory changes in its expected region. Intraperitoneal space: Unremarkable. No free air. No significant fluid collection. Vasculature: Moderate amount of atherosclerotic changes. The penetrating ulcer along the right side of the proximal infrarenal aorta now measures 2.8 cm in length and 1.5 cm in height increasing from 1.5 x 0.7 cm. Lymph nodes: Unremarkable. No enlarged lymph nodes. Urinary bladder: There is mild bladder wall thickening consistent with incomplete distension, chronic outflow obstruction, or cystitis. Reproductive: Unremarkable as visualized. Bones/joints: No acute fracture. Grade 1 anterolisthesis L4-L5. Severe facet arthropathy L3-S1. Severe central canal stenosis and bilateral neural foraminal narrowing L4-L5 with moderate change of the L3-L4 level. Soft tissues: Unremarkable. IMPRESSION: 1. 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 2. No evidence for organ laceration or free fluid/free air within the peritoneal cavity. 3. Uncomplicated colonic diverticulosis. 4. Uncomplicated cholelithiasis. 5. Hiatal hernia containing most of the stomach. Dictated and Authenticated by: Abhilash Nguyen MD. Ordering:JACKY Buchanan MD
--- NOTE | 2023-05-17 12:15 | W.ED.GENAD ---
Discharge Plan Discharge Details Chief Complaint: GenMedical Clinical Impression: Generalized muscle weakness, Acute UTI, Multiple falls, Anticoagulated, Troponin level elevated Primary Care Provider: Patience Alvarez ED Provider: Dewayne Arvizu Home Meds and New Rx's Prescriptions: No Action mirtazapine 7.5 mg tablet 7.5 mg PO DAILY tamsulosin 0.4 mg capsule 0.8 mg PO HS Qty: 90 Eliquis 5 mg tablet 5 mg PO BID Qty: 180 3RF sertraline 100 MG tablet 50 mg PO DAILY lisinopril 10 MG tablet 10 mg PO DAILY omeprazole 20 MG capsule,delayed release(DR/EC) 20 mg PO DAILY cholecalciferol (vitamin D3) [Vitamin D3] 2,000 UNIT capsule 1 cap PO DAILY baclofen 20 mg tablet 20 mg PO DAILY rosuvastatin [Crestor] 20 MG tablet 20 mg PO HS Medical Decision Making Patient presenting to the emergency department for chief complaint of fall secondary to weakness. Patient states over the past 2 weeks he has had increasing weakness that is generalized and nonfocal, he reports multiple falls but today he could not get himself up. Patient denies any syncope, head injury, loss of consciousness, chest or abdominal pain, difficulty breathing, and denies any pain at this time. Physical exam is unremarkable for any focal findings except it is noted that patient has bracing on left lower extremity and has limited movement of left lower extremity which patient states is at baseline given spinal stenosis that is unchanged. Patient denies back pain or any new symptoms. Patient does have history of atrial flutter, aortic insufficiency, spinal stenosis anxiety. Given that patient is on a thinner and has fallen and has no focal findings we will plan on performing CT imaging, labs, and urinalysis. Pending results will give small fluid bolus. Please see physician interpretation for full interpretation of EKG but upon my review patient is in atrial flutter and is rate controlled. No obvious ischemic findings are noted but will continue to monitor. Reviewed patient's labs and patient has stable but chronic anemia, slightly low platelet count of 103 otherwise nondiagnostic CBC. CMP shows slightly elevated BUN at 21 creatinine 1.3, glucose of 160 total bili of 1.4 otherwise normal CMP. Troponin is elevated at 302 with no previous history to compare to. I do not know if this is chronic given patient's atrial flutter but we will plan on repeating 3-hour troponin to look for any changes and will monitor for any chest pain or worsening symptoms. Urinalysis was reviewed and did show obvious signs of infection with positive nitrites and increased WBCs RBCs with reflexive culture ordered. Given this and patient's generalized weakness complaint we will start patient on ceftriaxone. Reviewed CT imaging and radiologist interpretation and imaging of head and cervical spine shows no acute findings noted. 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 No other emergent findings were noted by radiology. Given increasing size of aortic ulcer will [place] [facility] [place] pending second troponin anyways. Patient remained stable with no new or worrisome complaints noted. Pending speaking with [facility] [place] did note elevated troponin now of 440. Patient continues to deny any chest pain. Will repeat EKG and consult with [facility] [place]. Did speak with [facility] [place] whom stated that at this time there is no concerning findings given that patient is pain-free and not complaining of any new chest or abdominal pain on that the aortic ulcer should be monitored and blood pressure should be well controlled with continued on his statin. They did state if patient wanted to consider follow-up with them that primary care provider could refer patient to their service if patient wanted more than medical management or monitoring by primary care. This was discussed with patient and family. Was a delay in speaking with cardiology and so a third troponin was ordered to see if patient continues to have elevation. Patient continues to remain pain-free. Third troponin still elevated at 470 but not increasing as much as before. Did speak with [facility] [place] that did not recommend any catheterization or aggressive interventions at this time but did recommend continued monitoring of troponin along with telemetry, echo and stress test. Did inform cardiology that we had just had an echo done earlier this week but he stated he would like a new one given the elevated troponin. We will plan on paging hospitalist for admitting patient for generalized weakness, urinary tract infection, and multiple falls on anticoagulation. Medical Records Medical records reviewed: Yes I reviewed the patient's medical records. Medical records narrative: Recent echo was reviewed and noted and reviewed conclusion Left ventricular wall thickness and chamber size. Ejection fraction is 50 to 55%. The patient is in atrial flutter with [id number] variation. No segmental wall motion abnormalities are noted Normal right ventricular size and systolic function Left atrium is mildly enlarged. Right atrial size is normal The aortic valve is trileaflet and mildly sclerotic with moderate regurgitation Normal mitral valve with mild to moderate regurgitation Normal tricuspid valve with mild regurgitation. Estimated right ventricular systolic pressure is 39 mmHg Dilated ascending aorta measuring 4.13 cm Imaging Data Radiologic Study: Imaging: CT Scan Radiologist's impression: xam(s) PROCEDURE INFORMATION: Exam: CT Head Without Contrast Exam date and time: 05/17/2023 11:04 AM Age: 83 years old Clinical indication: Injury or trauma; Fall; Blunt trauma (contusions or hematomas) TECHNIQUE: Imaging protocol: Computed tomography of the head without contrast. COMPARISON: No relevant prior studies available. FINDINGS: Brain: Diffuse involutional changes and white matter hypodensities consistent with age. These findings are most likely due to atrophy and small vessel disease. No acute hemorrhage or acute terratorial infarct. Vascular calcifications at the [place] of [place]. Cerebral ventricles: No gross venticulomegaly. Paranasal sinuses: No significant opacity or air fluid levels. Mastoid air cells: Mastoids: No significant abnormality. Orbital cavities: No acute abnormality. Bilateral lens replacements Bones/joints: No acute fracture. Soft tissues: No significant abnormality. IMPRESSION: No acute intracranial abnormality. If concern persists, consider MRI or CTA. PROCEDURE INFORMATION: Exam: CT Cervical Spine Without Contrast Exam date and time: 05/17/2023 11:04 AM Age: 83 years old Clinical indication: Injury or trauma; Fall; Blunt trauma (contusions or hematomas) TECHNIQUE: Imaging protocol: Computed tomography of the cervical spine without contrast. COMPARISON: No relevant prior studies available. FINDINGS: Bones/joints: Age appropraite degenerative changes are present without acute fracture, worrisome malalignment, or significant compression deformity. Grade 1 anterolisthesis of C4 on C5 probably degenerative. Spinal epidural space: No epidural fluid. Prevertebral and retropharyngeal spaces: No prevertebral soft tissue swelling. Lungs: Lung apices are normal. Vasculature: Calcified carotid artery plaques bilaterally. Follow-up non-emergent ultrasound recommended. Soft tissues: Unremarkable. IMPRESSION: No acute bony abnormality. Radiologic Study #2: Imaging: CT Scan Radiologist's impression: Exam(s) PROCEDURE INFORMATION: Exam: CT Thoracic Spine Without Contrast Exam date and time: 05/17/2023 11:13 AM Age: 83 years old Clinical indication: Injury or trauma; Fall; Other: Weakness TECHNIQUE: Imaging protocol: Computed tomography of the thoracic spine without contrast. COMPARISON: CT HEAD CERVICAL SPINE WO 05/17/2023 11:04 AM FINDINGS: Bones/joints: Scoliosis, osteopenia, and degenerative changes are noted without convincing evidence of acute fracture. Soft tissues: The non spinal elements are evaluated separately including cardiomegaly with atherosclerotic1 disease and hiatal hernia. Dependent likely atelectatic changes in the lungs. Reference to the same-day CTA chest, abdomen, and pelvis recommended. IMPRESSION: No acute fracture. PROCEDURE INFORMATION: Exam: CT Lumbar Spine Without Contrast Exam date and time: 05/17/2023 11:13 AM Age: 83 years old Clinical indication: Injury or trauma; Fall; Other: Weakness TECHNIQUE: Imaging protocol: Computed tomography of the lumbar spine without contrast. COMPARISON: MR LUMBAR SPINE WO 08/04/2022 3:43 PM FINDINGS: Bones/joints: Osteopenia, degenerative changes common a scoliosis with grade 1 anterolisthesis of L4 on L5 and grade 1 retrolisthesis of L5 on S1. No spondylolysis. No acute fracture. Symmetric SI joints. Soft tissues: The non spinal elements are evaluated separately including the multiple lesions in this enlarged spleen, atherosclerotic changes of the mildly dilated aorta with potential dissection flap within, sigmoid diverticuli, the heterogeneous enlarged prostate, in the distended rectal vault. Reference to the same-day CT of the chest, abdomen, and pelvis recommended. No acute fracture. IMPRESSION: No acute bony abnormality. Radiologic Study #3: Imaging: CT Scan Radiologist's impression: Exam(s) Addendum created by Abhilash Nguyen MD on 05/17/2023 11:57:50 AM EDT: THIS REPORT CONTAINS FINDINGS THAT MAY BE CRITICAL TO PATIENT CARE. The findings were verbally communicated via telephone conference at 11:50 AM EST on 05/17/2023 with DEWAYNE ARVIZU. The findings were acknowledged and understood. Initial report created on 05/17/2023 11:53:59 AM EDT: PROCEDURE INFORMATION: Exam: CT Chest With Contrast; Diagnostic Exam date and time: 05/17/2023 11:13 AM Age: 83 years old Clinical indication: Injury or trauma; Fall; Generalized; Blunt trauma (contusions or hematomas) TECHNIQUE: Imaging protocol: Diagnostic computed tomography of the chest with contrast. Contrast material: OMNIPAQUE 350; Contrast volume: 100 ml; Contrast route: INTRAVENOUS (IV); COMPARISON: CT HEAD CERVICAL SPINE WO 05/17/2023 11:04 AM FINDINGS: Thyroid: The thyroid gland is normal. Lungs: No consolidations. A few senescent cysts in the lower lung zones. Minimal amount of fibrosis in the lower lung zones. Pleural spaces: Unremarkable. No pneumothorax. No pleural effusion. Heart: The heart is normal in size and configuration. There are coronary artery calcifications. No pericardial effusion. Lymph nodes: Unremarkable. No enlarged lymph nodes. Vasculature: Unremarkable. No aortic aneurysm. Bones/joints: Bony demineralization. Exaggeration of the kyphosis of the thoracic spine. No spondylolisthesis or fracture. Tqdcsrzh-xk-ljmgo size spurs along the anterior vertebra endplates. Soft tissues: Unremarkable. IMPRESSION: No acute findings. PROCEDURE INFORMATION: Exam: CT Abdomen And Pelvis With Contrast Exam date and time: 05/17/2023 11:13 AM Age: 83 years old Clinical indication: Injury or trauma; Fall; Generalized; Blunt trauma (contusions or hematomas) TECHNIQUE: Imaging protocol: Computed tomography of the abdomen and pelvis with contrast. Contrast material: OMNIPAQUE 350; Contrast volume: 100 ml; Contrast route: INTRAVENOUS (IV); COMPARISON: CT ABD PELVIS WITH CONTRAST 08/26/2017 10:42 AM FINDINGS: Liver: The liver measures 17.6 cm in length and has a granular appearance. There are no cysts or masses. Gallbladder and bile ducts: There is no common bile duct dilation. The gallbladder has many tiny calcified stones. No wall thickening or pericholecystic fluid. Pancreas: The pancreas is mildly fatty infiltrated. There are no cysts or masses. Spleen: Unchanged multiple varying sized hypodensities within the spleen. Adrenal glands: The adrenal glands are normal. Kidneys and ureters: Normal. No hydronephrosis. Stomach and bowel: Moderate-sized hiatal hernia containing most of the stomach. No signs of bowel obstruction. There are many colonic diverticula. Appendix: The appendix is not identified, but there are no inflammatory changes in its expected region. Intraperitoneal space: Unremarkable. No free air. No significant fluid collection. Vasculature: Moderate amount of atherosclerotic changes. The penetrating ulcer along the right side of the proximal infrarenal aorta now measures 2.8 cm in length and 1.5 cm in height increasing from 1.5 x 0.7 cm. Lymph nodes: Unremarkable. No enlarged lymph nodes. Urinary bladder: There is mild bladder wall thickening consistent with incomplete distension, chronic outflow obstruction, or cystitis. Reproductive: Unremarkable as visualized. Bones/joints: No acute fracture. Grade 1 anterolisthesis L4-L5. Severe facet arthropathy L3-S1. Severe central canal stenosis and bilateral neural foraminal narrowing L4-L5 with moderate change of the L3-L4 level. Soft tissues: Unremarkable. IMPRESSION: 1. 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 2. No evidence for organ laceration or free fluid/free air within the peritoneal cavity. 3. Uncomplicated colonic diverticulosis. 4. Uncomplicated cholelithiasis. 5. Hiatal hernia containing most of the stomach. Lab Data Lab results reviewed: Yes I reviewed the patient's lab results. HPI General Mode of arrival: EMS. Date/Time Provider Initiated Documentation: 05/17/23 09:46. Limitations to Documentation: no limitations. Information obtained by: patient and RN notes reviewed. History of Present Illness 83 year old M presents to the emergency department with the chief complaint of Generalized weakness, fall, described as similar to prior episodes, Patient started experiencing this week(s) (2) and it has been constant and intermittent. No relieving factors improve symptom(s), No exacerbating factors reported . Patient notes no other symptoms.. Patient did receive the following treatments prior to arrival, none Related Data Home Medications Medication Instructions Recorded Confirmed cholecalciferol (vitamin D3) 50 1 cap PO DAILY 09/15/14 05/17/23 mcg (2,000 unit) capsule (Vitamin D3) lisinopril 10 mg tablet 10 mg PO DAILY 09/15/14 05/17/23 omeprazole 20 mg capsule,delayed 20 mg PO DAILY 09/15/14 05/17/23 release sertraline 100 mg tablet 50 mg PO DAILY 09/15/14 05/17/23 rosuvastatin 20 mg tablet (Crestor) 20 mg PO HS 08/28/17 05/17/23 baclofen 20 mg tablet 20 mg PO DAILY 05/13/21 05/17/23 mirtazapine 7.5 mg tablet 7.5 mg PO DAILY 05/13/21 05/17/23 tamsulosin 0.4 mg capsule 0.8 mg PO HS #90 tab-caps 11/17/22 05/17/23 apixaban 5 mg tablet (Eliquis) 5 mg PO BID #180 tabs 12/16/22 05/17/23 Previous Rx's Medication Instructions Recorded apixaban 5 mg tablet (Eliquis) 5 mg PO BID #180 tabs 12/16/22 Allergies Allergy/AdvReac Type Severity Reaction Status Date / Time No Known Allergies Allergy Verified 05/17/23 09:40 General Stated Complaint: GenMedical HARRISON: 3 Review of Systems Constitutional Constitutional: Denies fever(s), Reports frequent falls, Denies headache(s), Reports malaise and Reports weakness Eyes Eyes: Denies change in vision ENT Ears, Nose, Mouth, and Throat: Denies dizziness, Denies headache(s), Denies nasal congestion and Denies sore throat Cardiovascular Cardiovascular: Denies chest pain, Denies syncope and Denies dyspnea Respiratory Respiratory: Denies cough and Denies dyspnea Gastrointestinal Gastrointestinal: Denies abdominal pain, Denies diarrhea, Denies nausea and Denies vomiting Genitourinary Genitourinary: Denies hematuria Musculoskeletal Musculoskeletal: Denies arthralgias Integumentary/Breasts Skin/Breast: Denies rash, Denies unusual bruising and Denies wounds Neurologic Neurologic: Denies confusion, Denies dizziness, Denies syncope, Reports frequent falls, Denies headache(s) and Reports weakness Psychiatric Psychiatric: Denies confusion Hematologic/Lymphatic Hematologic/Lymphatic: Reports easy bruising PFSH All Active Problems (Updated 05/17/23 @ 15:58 by Dewayne Arvizu NP) Generalized muscle weakness (Acute) Acute UTI (Acute) Multiple falls (Acute) Anticoagulated (Acute) Troponin level elevated (Acute) Atrial flutter (Acute) Left-sided epistaxis (Acute) Aortic insufficiency (Acute) Ascending aorta dilation (Acute) Seborrheic keratoses (Acute) Neoplasm of unspecified behavior of bone, soft tissue, and skin (Acute) Medical History (Updated 05/17/23 @ 15:58 by Dewayne Arvizu NP) Anxiety Anxiety about health Aortic valve regurgitation BPH w/o urinary obs/LUTS Cholelithiasis Erectile dysfunction GERD (gastroesophageal reflux disease) Hiatal hernia History of tobacco use HTN (hypertension) Hyperlipidemia Impaired fasting glucose LLQ abdominal pain Myelopathy Spinal stenosis, cervical region Spinal stenosis, lumbar region, with neurogenic claudication Splenic lesion Surgical History Colonoscopy - [facility] (09/02/17) Repair of inguinal hernia bilateral Social History Smoking/Tobacco Use Status: Former Tobacco Use Quit Date: 08/31/78 Tobacco: How many years used: 20 Smoking risk assessment performed?: Yes Alcohol Intake: current Alcohol Intake frequency: 0-2 drinks per day Alcohol type: hard liquor Drug use: Never Substance use type: does not use What is your relationship status?: Panel score (0-1 are the most socially isolated patients): 1 What type of physical activity do you participate in: other Details: stationary cycle Duration: 15-30 minutes/day Frequency: daily Do you feel safe at home: Yes Do you feel safe in your relationship?: Yes Exam Const General: cooperative, no acute distress and frail appearing Nutritional Appearance: thin Orientation: alert and awake HENWY Head: normal to inspection, normocephalic, atraumatic, no Bullard's sign and no raccoon eyes Ears: TM's normal bilaterally General nose exam: external nose normal Face and sinus: normal facial exam Chest Chest: normal inspection of the chest and normal palpation of entire chest wall Resp Effort & Inspection: normal respiratory effort and able to speak in complete sentences Auscultation: clear to auscultation bilaterally Cardio Rate: regular rate Rhythm: regular rhythm Heart Sounds: S1 normal, S2 normal and no murmurs GI Inspection: normal to inspection Palpation: soft, not firm, no guarding, not rigid and nontender Auscultation: normal bowel sounds Neuro General: patient alert, patient awake, does not move all extremities (Decreased use of left lower extremity), normal light touch, pain and propioception, no meningeal signs, no focal motor deficits, not confused and unable to assess gait Speech: speech normal Motor: strength abnormal left lower extremity Course Vital Signs Vital signs: Vital Signs Temperature 37.1 C 05/17/23 09:31 Pulse 88 05/17/23 09:31 Respiratory Rate 17 05/17/23 09:31 Blood Pressure 142/55 H 05/17/23 09:31 Pulse Oximetry 91 L 05/17/23 09:31 Temperature 37.1 C 05/17/23 09:31 Temperature Source Tympanic 05/17/23 09:31 Pulse 83 05/17/23 10:46 Pulse 86 05/17/23 10:50 Respiratory Rate 17 05/17/23 10:50 Respiratory Effort Normal 05/17/23 09:36 Respiratory Depth Normal 05/17/23 09:36 Respiratory Pattern Normal 05/17/23 09:36 Blood Pressure 141/53 H 05/17/23 10:46 Blood Pressure Mean 81 05/17/23 10:46 Blood Pressure Position Sitting 05/17/23 09:31 Pulse Oximetry 92 05/17/23 10:50 Oxygen Delivery Method Room Air 05/17/23 09:31 Oxygen Flow Rate 0 05/17/23 09:31 Pain Level 0 05/17/23 09:31 Lab/Test Results Lab/Test Results: 05/17/23 10:36 Urine - Reflex from Ua Urine Culture - Pending Laboratory Tests Range/Units 05/17/23 05/17/23 05/17/23 09:50 09:50 10:36 WBC (4.4-10.8) 10^3/uL 8.08 RBC (4.36-5.78) 10^6/uL 4.34 L Hgb (13.5-17.5) g/dL 13.2 L Hct (40.0-50.0) % 39.3 L MCV (80-95) fL 91 MCH (27.0-33.0) pg 30.4 MCHC (32.0-36.0) % 33.6 RDW (11.8-14.1) % 13.2 Plt Count (130-400) 10^3/uL 103 L MPV (8.0-11.0) fL 9.2 Immature Gran % 0.6 Neutrophils % 94.3 Lymphocytes % 1.6 Monocytes % 3.1 Eosinophils % 0.0 Basophils % 0.4 Nucleated RBC % (0.0-0.3) % 0.0 Absolute Neutrophils (1.2-6.7) 10^3/uL 7.62 H Absolute Lymphocytes (1.2-3.4) 10^3/uL 0.13 L Absolute Monocytes (0.1-0.8) 10^3/uL 0.25 Absolute Eosinophils (0.0-0.7) 10^3/uL 0.00 Absolute Basophils (0.0-0.2) 10^3/uL 0.03 Sodium (136-145) mmol/L 138 Potassium (3.5-5.1) mmol/L 3.8 Chloride (98-107) mmol/L 102 Carbon Dioxide (21.0-32.0) mmol/L 28.2 Anion Gap (3-11) mmol/L 7.8 BUN (7-18) mg/dL 21 H Creatinine (0.70-1.30) mg/dL 1.3 Est GFR (CKD-EPI 2020) (mL/min/1.73m2) 54.51 Glucose (74-106) mg/dL 160 H Calcium (8.5-10.1) mg/dL 9.2 Magnesium (1.8-2.4) mg/dL 1.9 Total Bilirubin (0.2-1.0) mg/dL 1.4 H AST (15-37) U/L 31 ALT (16-63) U/L 23 Alkaline Phosphatase (46-116) U/L 101 Troponin I (<or=60) ng/L 302 H* Total Protein (6.4-8.2) g/dL 7.2 Albumin (3.4-5.0) g/dL 3.4 Urine Color (Yellow) Yellow Urine Clarity (Clear) Clear Urine pH (5-8) 5.5 Ur Specific [place] (1.005-1.025) 1.015 Urine Protein (Negative) mg/dL Trace H Urine Ketones (Negative) mg/dL 15 H Urine Blood (Negative) Large H Urine Nitrite (Negative) Positive H Urine Bilirubin (Negative) Negative Urine Urobilinogen (Up to 0.2) mg/dL 4.0 H Ur Leukocyte Esterase (Negative) Negative Urine RBC (0-2) HPF 10-20 H Urine WBC (0-5) HPF 10-20 H Ur Epithelial Cells (Negative) HPF Few Urine Crystals (Negative) HPF Negative Urine Bacteria (Negative) HPF Many Urine Casts (Negative) LPF Negative Urine Mucus (Negative) Trace Ur Culture Indicated? Yes Urine Glucose (Negative) mg/dL Negative Sign Out Sign Out Data: Sign Out Comment: Patient signed out pending admission and discussion of case to hospitalist for generalized weakness, multiple falls while anticoagulated, and UTI. Patient also requires continued cardiac monitoring due to elevated troponin without chest pain and recommendation from cardiology for echo and stress test. Last updated by Dewayne Arvizu NP at 05/17/23 15:57
--- NOTE | 2023-05-17 12:45 | RT.EKG_ITS ---
APPROVED REPORT Exam: Resting ECG Reason for Exam: Elevated troponin Patient Location: E HR:85 bpm ECG Measurements Heart Rate 85 AXIS NV [id number] P [id number] QRSd 167 QRS -40 QT 409 T -54 QTc 487 Conclusion Atrial flutter with predominant 3:1 AV block...A-rate 258, multiple Ps RBBB and LAFB...QRSd >120mS, axis(-40,240) ST elevation secondary to atrial flutter
[2023-05-17 12:51] LABS: Troponin I 440 ng/L (<or=60)
[2023-05-17 15:36] LABS: Troponin I 470 ng/L (<or=60)
[2023-05-17 16:57] LABS: Lactate 1.9 mmol/L (0.6-1.4)
[2023-05-17 17:43] LABS: Procalcitonin 41.1 ng/mL
[2023-05-17] MEDS: Acetaminophen 325 MG TAB PO (18:26)
--- NOTE | 2023-05-17 19:14 | W.PM.HP.N ---
Date of service: 05/17/23 Time of Service: 19:14 Assessment and Plan Assessment and plan (1) Acute UTI: Status: Acute Assessment and plan: C/O weakness and frequent urination Urine positive for nitrites, bacteria, blood, urobilinogen, RBC, WBC Procalcitonin 41.1 Continue ceftriaxone, urine cx and blood cx pending (2) Generalized muscle weakness: Status: Acute Assessment and plan: In setting of UTI. Was seen at PCP office on and nothing was found at that time that indicated why he had increasing weakness LR 100 ml/h x 1000 ml - rec'd 500 ml bolus in ED (3) Multiple falls: Status: Acute Assessment and plan: PT consulted No injury (4) Anticoagulated: Status: Acute Assessment and plan: On apixaban (5) Troponin level elevated: Status: Acute Assessment and plan: First 302 @ 0950h; second 440 @ 1213h; third 470 @ 1513h, fourth pending (6) Atrial flutter: Status: Acute Assessment and plan: Chronic AFlutter on apixaban Telemetry Echo and stress test per recommendation of cardiology at [facility] [place]. History of Present Illness History of Present Illness Chief Complaint: Weakness, fall Narrative: This is an 83 year old male patient with past medical history of atrial flutter, on apixaban, aortic iinsufficiency, spinal stenosis and anxiety who presented to the [facility] ED via EMS for evaluation of having a fall secondary to feeling weak. Patient reported he has had worsening weakness over the past two weeks. He fell today and could not get himself up. He denied light headedness, dizziness, syncope, chest pain, abdominal pain, palpitations, shortness of breath, cough, fever, nausea or vomiting. He stated he did not hit his head and has no pain anywhere. Patient in the ED in usual atrial flutter. Patient has stable but chronic anemia, slightly low platelet count of 103 otherwise nondiagnostic CBC.? CMP showed slightly elevated BUN at 21 creatinine 1.3, glucose of 160 total bili of 1.4 otherwise normal CMP.? Troponin is elevated at 302 with no previous history to compare to.?Urinalysis was reviewed and did show obvious signs of infection with positive nitrites and increased WBCs RBCs with reflexive culture ordered.? Given this and patient's generalized weakness complaint patient was started on ceftriaxone. CT of the head and neck unremarkable, no acute findings. 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 [place] team was consulted advised at this time there is no concerning findings given that patient is pain-free and not complaining of any new chest or abdominal pain and the aortic ulcer should be monitored and blood pressure should be well controlled and continued on his statin.? They did state if patient wanted to consider follow-up with them that primary care provider could refer patient to their service if patient wanted more than medical management or monitoring by primary care.?[facility] cardiology was consulted and did not recommend any catheterization or aggressive interventions at this time but did recommend continued monitoring of troponin along with telemetry, echo and stress test.? Did inform cardiology that we had just had an echo done earlier this week but he stated he would like a new one given the elevated troponin. Patient was admitted to the medical floor on telemetry, stable. Patient is DNR/DNI Review of Systems All systems reviewed & are unremarkable except as noted in HPI and below PFSH All Active Problems (Updated 05/17/23 @ 19:34 by Analy Zendejas NP) Generalized muscle weakness (Acute) Acute UTI (Acute) Multiple falls (Acute) Anticoagulated (Acute) Troponin level elevated (Acute) Atrial flutter (Acute) Medical History (Updated 05/17/23 @ 19:34 by Analy Zendejas NP) Anxiety Anxiety about health Aortic insufficiency Aortic valve regurgitation Ascending aorta dilation BPH w/o urinary obs/LUTS Cholelithiasis Erectile dysfunction GERD (gastroesophageal reflux disease) Hiatal hernia History of tobacco use HTN (hypertension) Hyperlipidemia Impaired fasting glucose Left-sided epistaxis LLQ abdominal pain Myelopathy Neoplasm of unspecified behavior of bone, soft tissue, and skin Seborrheic keratoses Spinal stenosis, cervical region Spinal stenosis, lumbar region, with neurogenic claudication Splenic lesion Surgical History Colonoscopy - MAC (09/02/17) Repair of inguinal hernia bilateral Social History Smoking/Tobacco Use Status: Former Tobacco Use Quit Date: 08/31/78 Tobacco: How many years used: 20 Smoking risk assessment performed?: Yes Alcohol Intake: current Alcohol Intake frequency: 0-2 drinks per day Alcohol type: hard liquor Drug use: Never Substance use type: does not use Housing: house What is your relationship status?: Panel score (0-1 are the most socially isolated patients): 1 What type of physical activity do you participate in: other Details: stationary cycle Duration: 15-30 minutes/day Frequency: daily Do you feel safe at home: Yes Do you feel safe in your relationship?: Yes Meds Allergies and Home Medications Allergies Allergy/AdvReac Type Severity Reaction Status Date / Time No Known Allergies Allergy Verified 05/17/23 09:40 Home Medications Medication Instructions Recorded Confirmed Type cholecalciferol (vitamin D3) 50 1 cap PO DAILY 09/15/14 05/17/23 History mcg (2,000 unit) capsule (Vitamin D3) lisinopril 10 mg tablet 10 mg PO DAILY 09/15/14 05/17/23 History omeprazole 20 mg capsule,delayed 20 mg PO DAILY 09/15/14 05/17/23 History release sertraline 100 mg tablet 50 mg PO DAILY 09/15/14 05/17/23 History rosuvastatin 20 mg tablet (Crestor) 20 mg PO HS 08/28/17 05/17/23 History baclofen 20 mg tablet 20 mg PO DAILY 05/13/21 05/17/23 History mirtazapine 7.5 mg tablet 7.5 mg PO DAILY 05/13/21 05/17/23 History tamsulosin 0.4 mg capsule 0.8 mg PO HS #90 tab-caps 11/17/22 05/17/23 History apixaban 5 mg tablet (Eliquis) 5 mg PO BID #180 tabs 12/16/22 05/17/23 Rx Exam Const General: cooperative, no acute distress and frail appearing Nutritional Appearance: thin Orientation: alert and awake [facility] Head: normal to inspection, normocephalic, atraumatic, no Bullard's sign and no raccoon eyes Ears: TM's normal bilaterally General nose exam: external nose normal Face and sinus: normal facial exam Chest Chest: normal inspection of the chest and normal palpation of entire chest wall Resp Effort & Inspection: normal respiratory effort and able to speak in complete sentences Auscultation: clear to auscultation bilaterally Cardio Rate: regular rate Rhythm: regular rhythm Heart Sounds: S1 normal, S2 normal and no murmurs GI Inspection: normal to inspection Palpation: soft, not firm, no guarding, not rigid and nontender Auscultation: normal bowel sounds Neuro General: patient alert, patient awake, does not move all extremities (Decreased use of left lower extremity), normal light touch, pain and propioception, no meningeal signs, no focal motor deficits, not confused and unable to assess gait Speech: speech normal Motor: strength abnormal Results Labs 05/17/23 09:50 05/17/23 09:50 Labs: Laboratory Results - last 24 hr 05/17/23 05/17/23 05/17/23 09:50 09:50 10:36 WBC 8.08 RBC 4.34 L Hgb 13.2 L Hct 39.3 L MCV 91 MCH 30.4 MCHC 33.6 RDW 13.2 Plt Count 103 L MPV 9.2 Immature Gran % 0.6 Neutrophils % 94.3 Lymphocytes % 1.6 Monocytes % 3.1 Eosinophils % 0.0 Basophils % 0.4 Nucleated RBC % 0.0 Absolute Neutrophils 7.62 H Absolute Lymphocytes 0.13 L Absolute Monocytes 0.25 Absolute Eosinophils 0.00 Absolute Basophils 0.03 VBG Lactate Sodium 138 Potassium 3.8 Chloride 102 Carbon Dioxide 28.2 Anion Gap 7.8 BUN 21 H Creatinine 1.3 Est GFR (CKD-EPI 2020) 54.51 Glucose 160 H Calcium 9.2 Magnesium 1.9 Total Bilirubin 1.4 H AST 31 ALT 23 Alkaline Phosphatase 101 Troponin I 302 H* Total Protein 7.2 Albumin 3.4 Procalcitonin Urine Color Yellow Urine Clarity Clear Urine pH 5.5 Ur Specific [place] 1.015 Urine Protein Trace H Urine Ketones 15 H Urine Blood Large H Urine Nitrite Positive H Urine Bilirubin Negative Urine Urobilinogen 4.0 H Ur Leukocyte Esterase Negative Urine RBC 10-20 H Urine WBC 10-20 H Ur Epithelial Cells Few Urine Crystals Negative Urine Bacteria Many Urine Casts Negative Urine Mucus Trace Ur Culture Indicated? Yes Urine Glucose Negative 05/17/23 05/17/23 05/17/23 12:13 15:13 16:53 WBC RBC Hgb Hct MCV MCH MCHC RDW Plt Count MPV Immature Gran % Neutrophils % Lymphocytes % Monocytes % Eosinophils % Basophils % Nucleated RBC % Absolute Neutrophils Absolute Lymphocytes Absolute Monocytes Absolute Eosinophils Absolute Basophils VBG Lactate 1.9 H Sodium Potassium Chloride Carbon Dioxide Anion Gap BUN Creatinine Est GFR (CKD-EPI 2020) Glucose Calcium Magnesium Total Bilirubin AST ALT Alkaline Phosphatase Troponin I 440 H* 470 H* Total Protein Albumin Procalcitonin 41.1 Urine Color Urine Clarity Urine pH Ur Specific [place] Urine Protein Urine Ketones Urine Blood Urine Nitrite Urine Bilirubin Urine Urobilinogen Ur Leukocyte Esterase Urine RBC Urine WBC Ur Epithelial Cells Urine Crystals Urine Bacteria Urine Casts Urine Mucus Ur Culture Indicated? Urine Glucose Last Vital Signs Temp 37.9 C H 05/17/23 18:26 Pulse 61 05/17/23 17:55 Resp 18 05/17/23 17:55 BP 126/63 05/17/23 17:55 Pulse Ox 96 05/17/23 17:55 Time Spent Time spent with Patient: 55-74 minutes Time was spent: preparing to see the patient(eg.review tests), obtaining and/or reviewing separately otained hiistory, ordering medications,tests, procedures, referring, communicating with other health care connector, indepentently interpreting results, counseling the patient and care coordination
[2023-05-17] MEDS: Lactated Ringers 1,000 ML 100 ML IV (19:48)
[2023-05-17 20:11] LABS: Troponin I 427 ng/L (<or=60)
[2023-05-17] MEDS: Apixaban 5 MG TAB PO (20:13)
[2023-05-17] MEDS: Rosuvastatin 20 MG TAB PO (21:36)
[2023-05-17] MEDS: Tamsulosin 0.4 MG CAPCR 0.8 MG PO (21:36)
[2023-05-18] VITALS (7 sets, daily range): BP systolic 115–144; BP diastolic 62–73; PULSE 56–89; RESP 1–18; TEMP 35–36.6; O2SAT 91–95
[2023-05-18 07:16] LABS: Abs Immature Grans 0.03 10^3/uL (0.0-0.06); Absolute Basophil Count 0.03 10^3/uL (0.0-0.2); Absolute Eosinophil Count 0.02 10^3/uL (0.0-0.7); Absolute Lymphocyte Count 0.24 10^3/uL (1.2-3.4); Absolute Monocyte Count 0.45 10^3/uL (0.1-0.8); Absolute Neutrophil Count 4.67 10^3/uL (1.2-6.7); Basophils % 0.6; Eosinophils % 0.4; HCT 35.2 % (40.0-50.0); HGB 11.9 g/dL (13.5-17.5); Immature Grans % 0.6; Lymphocytes % 4.4; MCH 30.7 pg (27.0-33.0); MCHC 33.8 % (32.0-36.0); MCV 91 fL (80-95); MPV 9.2 fL (8.0-11.0); Monocytes % 8.3; Neutrophils % 85.7; RBC 3.88 10^6/uL (4.36-5.78); RDW 13.7 % (11.8-14.1); RDW-SD 45.2 fL; WBC 5.44 10^3/uL (4.4-10.8)
[2023-05-18 07:33] LABS: Anion Gap 9.5 mmol/L (3-11); BUN 23 mg/dL (7-18); CO2 24.5 mmol/L (21.0-32.0); CREATININE 1.1 mg/dL (0.70-1.30); Calcium 8.8 mg/dL (8.5-10.1); Chloride 100 mmol/L (98-107); Estimated GFR 66.61 (mL/min/1.73m2); Glucose 110 mg/dL (74-106); Magnesium 1.9 mg/dL (1.8-2.4); Potassium 4.1 mmol/L (3.5-5.1); Sodium 134 mmol/L (136-145)
[2023-05-18 07:37] LABS: Diff Comment Diff Reviewed; Platelet Count 84 10^3/uL (130-400); RBC Morphology Normal
--- NOTE | 2023-05-18 08:00 | DI.US_ITS ---
APPROVED REPORT EXAM: Comprehensive 2D, Doppler, and color-flow Echocardiogram Patient Location: In-Patient Room/Bed: [address] Hand: Stacie Miranda RDCS (AE) Indications: A Flutter, Elevated troponin, Weakness Limited follow up to echo done 05/12/23 Other Information Study Quality: Good Conclusion Normal left ventricular wall thickness and chamber size. Ejection fraction is 50 to 55%. There are no segmental wall motion abnormalities Mildly dilated left atrium Overall the echocardiogram is unchanged compared to one done May 12, 2023 Wall motion Left Ventricle The overall left ventricular systolic function appears normal. There are no segmental wall motion abn ormalities Ejection fraction 50 to 55% Pericardium There is no pericardial effusion. Auto EF LV EDV A4C 127.9 mL LV EDV A2C 111.3 mL LV EDV BP 123.2 mL LV ESV A4C 65.4 mL LV ESV A2C 55.1 mL LV ESV BP 60.7 mL LVEF(%) A4C 48.9 % LVEF(%) A2C 50.5 % LVEF(%) BP 50.8 % LV SV A4C 62.5 ml LV SV A2C 56.2 ml LV SV BP 62.6 ml LV CO A4C 5.3 L/min LV CO A2C 4.9 L/min LV CO BP 5.1 L/min HR A4C 85.51 BPM HR A2C 87.17 BPM LV EDV Index (BP)
[2023-05-18] MEDS: Baclofen 10 MG TAB 20 MG PO (08:27)
[2023-05-18] MEDS: Cholecalciferol (Vitamin D3) 1,000 UNIT TAB 2000 UNITS PO (08:28)
[2023-05-18] MEDS: Mirtazapine 15 MG TAB 7.5 MG PO (08:28)
[2023-05-18] MEDS: Omeprazole 20 MG CAPCR PO (08:28)
[2023-05-18] MEDS: Apixaban 5 MG TAB PO ×2 (08:28→21:19)
[2023-05-18] MEDS: Sertraline 100 MG TAB 50 MG PO (08:29)
--- NOTE | 2023-05-18 09:49 | PDOC.CMIN ---
Date of service: 05/18/23 Time of Service: 09:49 Care Management Initial Assmt Initial Assessment REASON FOR HOSPITALIZATION:: Acute UTI, elevated troponons PREVIOUS FUNCTIONAL STATUS/SOCIAL/FAMILY SUPPORTS:: Lucho lives in a single family, single floor home in [place] with his Pili. They have 6 children, 10 grandchildren and 14 great grandchildren, all of whom live in the area. According to Pili, they are a close and supportive family and see each other regularly. Marquis is independent with ADLs but does use a walker for ambulation. 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 Marquis does not currently receive any community services. CURRENT FUNCTIONAL STATUS:: Marquis was lying in bed visiting with his when CM met with him. He was quiet but willing to answer questions. Pili was an active participant in the conversation as well. They spoke about how active Marquis is at baseline and how quickly he has been weakened by the UTI he developed. Pili shared that Marquis mowed the lawn 2 days ago but was so weak yesterday he fell. It is likely he will benefit from home health services when discharged and both are amenable to that. ADVANCE DIRECTIVES:: on file. Pili Soriano [facility] Has patient been provided with info about the portal/API?: Yes Did the patient sign up for the portal?: No CODE STATUS:: DNR/DNI INSURANCE COVERAGE / FINANCIAL ISSUES:: Medicare [employer] supplement CURRENT HOME/COMMUNITY SERVICES/EQUIPMENT:: uses a walker PRIMARY CARE PHYSICIAN:: Patience Alvarez POTENTIAL DISCHARGE NEEDS:: follow up with PCP and Cardiology PATIENT/FAMILY EDUCATION NEEDS:: review of discharge instructions, limitations, medications, follow up plan, discuss [employer] TRANSPORTATION:: via private vehicle with PLAN:: Marquis will likely be discharged home, likely with new home health services, when medically cleared. He will follow up with his community providers and plan of care and transport with family. CM will follow and continue to assess for discharge needs. PFSH All Active Problems (Updated 05/17/23 @ 19:34 by Analy Zendejas NP) Generalized muscle weakness (Acute) Acute UTI (Acute) Multiple falls (Acute) Anticoagulated (Acute) Troponin level elevated (Acute) Atrial flutter (Acute) Medical History (Updated 05/17/23 @ 19:34 by Analy Zendejas NP) Anxiety Anxiety about health Aortic insufficiency Aortic valve regurgitation Ascending aorta dilation BPH w/o urinary obs/LUTS Cholelithiasis Erectile dysfunction GERD (gastroesophageal reflux disease) Hiatal hernia History of tobacco use HTN (hypertension) Hyperlipidemia Impaired fasting glucose Left-sided epistaxis LLQ abdominal pain Myelopathy Neoplasm of unspecified behavior of bone, soft tissue, and skin Seborrheic keratoses Spinal stenosis, cervical region Spinal stenosis, lumbar region, with neurogenic claudication Splenic lesion Surgical History Colonoscopy - MAC (09/02/17) Repair of inguinal hernia bilateral Social History Smoking/Tobacco Use Status: Former Tobacco Use Quit Date: 08/31/78 Tobacco: How many years used: 20 Smoking risk assessment performed?: Yes Alcohol Intake: current Alcohol Intake frequency: 0-2 drinks per day Alcohol type: hard liquor Drug use: Never Substance use type: does not use Housing: house What is your relationship status?: Panel score (0-1 are the most socially isolated patients): 1 What type of physical activity do you participate in: other Details: stationary cycle Duration: 15-30 minutes/day Frequency: daily Do you feel safe at home: Yes Do you feel safe in your relationship?: Yes
[2023-05-18] MEDS: Lisinopril 10 MG TAB PO (12:53)
[2023-05-18] MEDS: cefTRIAXone 1 GM/50 ML BAG IVPB (12:54)
--- NOTE | 2023-05-18 14:37 | PT.INIE ---
Date of service: 05/18/23 Time of Service: 13:59 PT Notes Visit Reasons: Urinary Tract Infection Physical Therapy Inpatient Initial Evaluation Date: 05/18/2023 Referring Doctor: Analy Zendejas NP PT Orders: PT CONSULT: Eval/Treat Precautions: Fall. Standard. Activity as tolerated. L AFO on when OOB to reduce fall risk. Patient Profile/Admitting Diagnosis: Marquis is a 83-year-old male patient who presented to the ED on 05/17/2023 due to repeated falls secondary to weakness and difficulty with walking. patient is admitted for management of acute urinary tract infection, generalized weakness, mutiple falls, increased troponin level, and atrial flutter. PMHX: All Active Problems?(Updated 05/17/23 @ 19:34 by Analy Zendejas NP) Generalized muscle weakness (Acute) Acute UTI (Acute) Multiple falls (Acute) Anticoagulated (Acute) Troponin level elevated (Acute) Atrial flutter (Acute) Medical History?(Updated 05/17/23 @ 19:34 by Analy Zendejas NP) Anxiety Anxiety about health Aortic insufficiency Aortic valve regurgitation Ascending aorta dilation BPH w/o urinary obs/LUTS Cholelithiasis Erectile dysfunction GERD (gastroesophageal reflux disease) Hiatal hernia History of tobacco use HTN (hypertension) Hyperlipidemia Impaired fasting glucose Left-sided epistaxis LLQ abdominal pain Myelopathy Neoplasm of unspecified behavior of bone, soft tissue, and skin Seborrheic keratoses Spinal stenosis, cervical region Spinal stenosis, lumbar region, with neurogenic claudication Splenic lesion Surgical History? Colonoscopy - MAC (09/02/17) Repair of inguinal hernia bilateral Social History/Home Situation: Lives with in a private home. Modified independent with use of four-wheeled walker indoor and outdoors. Equipment Owned/DME: 4WW Subjective: Per , patient was mowing lawn 3 days ago. She adds that previously, he became this weak when he had a urinary tract infection and improved with antibiotic treatment. States that he has not had any change of AFO/brace since 20 years ago adding that the one that [facility] [place] him was flimsy and provided little support. Objective: General Observation: Sitting on bedside chair. Nurse just got done changing and cleaning patient post urine voiding. Pili present in room throughout evaluation. Mental Status: Alert and oriented as to person, place, time, and purpose. Able to pay attention, focus, and respond appropriately. Pain: None reported Vital Signs: On telemetry monitoring. ROM: Right Upper Extremity: Shoulder Flexion lacks the last 25% of AROM. Shoulder abduction lacks the last 25% of AROM. Elbow flexion WFL. Wrist flexion WFL. Functional opening and closing of hand WFL. Left Upper Extremity: Shoulder Flexion lacks the last 25% of AROM. Shoulder abduction lacks the last 25% of AROM. Elbow flexion WFL. Wrist flexion WFL. Functional opening and closing of hand WFL. Right Lower Extremity: Hip flexion WFL. Hip abduction WFL. Knee flexion WFL. Ankle dorsiflexion WFL. Ankle plantarflexion WFL. Left Lower Extremity: Hip flexion lacks the last 50% of AROM. Hip abduction lacks the last 50% of AROM. Knee flexion 60 to 90 degrees. Knee extension -60 degrees. Ankle dorsiflexion absent. Ankle plantarflexion absent. Strength: Right Upper Extremity: Shoulder flexors 3-/5. Shoulder abductors 3-/5. Elbow flexors 4-/5. Elbow extensors 4-/5. [employer] strong. Left Upper Extremity: Shoulder flexors 3-/5. Shoulder abductors 3-/5. Elbow flexors 4-/5. Elbow extensors 4-/5. [employer] strong. Right Lower Extremity: Hip flexors 4-/5. Hip abductors 4-/5. Knee flexors 4-/5. Knee extensors 4-/5. Ankle dorsiflexors 4-/5. Ankle plantarflexors 4-/5. Left Lower Extremity: Hip flexors 3-/5. Hip abductors 3-/5. Knee flexors 3-/5. Knee extensors 2-/5. Ankle dorsiflexors 0/5. Ankle plantarflexors 0/5. Bed Mobility/Transfers: Sit to stand with contact guard assist with cueing provided for movement sequence and hand placement Stand to sit with contact guard assist with cueing provided for movement sequence and hand placement Gait: Guided and instructed patient with level surface ambulation of 20 feet + 20 feet requiring contact guard assist. Consuelo decreased. Step height and length asymmetric. Needed moderate verbal cueing to stay close to walker; required tactile cueing to B hips to weight shift to R enough to allow for adequate clearing and safe advancement of L LE. Pili offered to provide wheelchair follow for safety. Mildly short of breath but felt better after seated rest. Balance: Static Sitting: Normal Dynamic Sitting: Normal Static Standing: Fair Dynamic Standing: Fair Special Tests: Mobility Limitations Standardized Measure [facility] AM-PAC 6 clicks Basic Mobility Inpatient Short Form: Raw Score: 18 CMS Score: 47% deficit Informed Consent/Education: Patient was instructed in purpose of PT consult and plan of care. Agreeable to proceed with established PT POC to achieve personal goals. ASSESSMENT: Requires use of L AFO to increase stability of gait as patient has pre-existing foot drop on L. Patient demonstrates much improved mobility performance today compared to day of admission. Requires orthotic re-assessment and fitting for L dorsiflexor weakness. Patient presents with clinical signs and symptoms consistent with current/admitting diagnoses that have resulted to mobility limitations, gait instability, generalized weakness, and overall ADL decline as demonstrated by the following impairment level findings: 1. Decreased strength to b UE/LE major muscle groups L side more weak than the R 2. Impaired sitting/standing balance 3. Impaired activity tolerance 4. Limitation of joint range of motion in L knee and ankle (chronic) 5. Shortness of breath 6. Swelling in B legs Impairments are contributing to the following functional limitations: 1. Decline in bed mobility skills 2. Decline in transfer skills 3. Difficulty with ambulation without assistive device and physical assistance 4. Increased completion time for mobility ADL performance 5. Increased risk for falls Patient is assessed as a 26276 moderate complexity based on the following: History: 83-year-old female with past medical history as indicated above Examination: Demonstrable impairment in strength, balance, and mobility level with underlying impairments and functional limitations as exhibited above as well as deficit score of 47% utilizing the [facility] Mobility Inpatient Short Form Presentation: Evolving Decision Makin moderate complexity Goals: Goals X1 week 1. Supine-Sit independent 2. Sit-Supine independent 3. Sit-Stand independent 4. Stand-Sit independent with 4WW 5. Bed-Chair independent with 4WW 6. Chair-Bed independent with 4WW 7. Independent gait on level surface with use of 4WW for at least 150 feet without report of pain nor dyspnea 8. Independent stair negotiation while holding onto B rails for at least 3 steps without report of pain nor dyspnea 9. Independent with home exercise program 10. Good static and dynamic standing balance/tolerance Plan of Care/Treatment Plan: 1-2x/day, 7 days/week x 1 week. Plan of care has been reviewed with the EPIC WILLOW ANALYST providing the service under Physical Therapy direction. Initiate Physical Therapy intervention for pain management as needed, strengthening, bed mobility, transfers, gait, stairs, balance training, and use of assistive device. DISCHARGE RECOMMENDATIONS: [] Home with no services [] [X] Home with services. Patient will benefit from home health PT services in order to progress mobility level using least restrictive assistive ambulatory device, assess home safety, identify additional equipment needs, and establish a functional maintenance program that will increase ability of patient to remain at home. [] Home with outpatient PT [] [] SNF for continued rehabilitation [] [] [facility] [] [] SNF versus LTC based on ability to participate and progress [] TREATMENT CODE/TIME: 86394 x 20 minutes for 1 unit, 88218 x 14 minutes beginning at 13:59 PM. Thank you for the opportunity to participate in the care of this patient. Krista Persaud PT, DPT, CLT [facility] [place], [place]
--- NOTE | 2023-05-18 20:10 | PGE_ITS ---
Date of Service Date of service: 05/18/23 Time of Service: 20:10 Assessment and Plan Assessment and plan (1) Acute UTI: Status: Acute Assessment and plan: C/O weakness and frequent urination Urine positive for nitrites, bacteria, blood, urobilinogen, RBC, WBC Procalcitonin 41.1 Continue ceftriaxone, urine cx E coli - BC neg for 24h (2) Generalized muscle weakness: Status: Acute Assessment and plan: In setting of UTI. Was seen at PCP office on and nothing was found at that time that indicated why he had increasing weakness Working with PT, stronger today (3) Multiple falls: Status: Acute Assessment and plan: PT consulted No injury (4) Anticoagulated: Status: Acute Assessment and plan: On apixaban (5) Troponin level elevated: Status: Acute Assessment and plan: First 302 @ 0950h; second 440 @ 1213h; third 470 @ 1513h, fourth 427 (6) Atrial flutter: Status: Acute Assessment and plan: Chronic AFlutter on apixaban Telemetry Echo unchanged from last, EF 50-55%, no abnormal wall motion and stress test (pending) per recommendation of cardiology at [facility] ordered. Subjective Subjective Patient reports: no new complaints, tolerating liquids well, tolerating a regular diet, voiding w/o difficulty, bowel movement and afebrile; denies diarrhea, nausea or vomiting Interval history since last seen: Sitting up in the chair, still weak, working with PT, in visiting. He ate all of his breakfast and all of his lunch. Exam Const General: cooperative, no acute distress and frail appearing Nutritional Appearance: thin Orientation: alert and awake [facility] Head: normal to inspection, normocephalic, atraumatic, no Bullard's sign and no raccoon eyes Ears: TM's normal bilaterally General nose exam: external nose normal Face and sinus: normal facial exam Chest Chest: normal inspection of the chest and normal palpation of entire chest wall Resp Effort & Inspection: normal respiratory effort and able to speak in complete sentences Auscultation: clear to auscultation bilaterally Cardio Rate: regular rate Rhythm: regular rhythm Heart Sounds: S1 normal, S2 normal and no murmurs GI Inspection: normal to inspection Palpation: soft, not firm, no guarding, not rigid and nontender Auscultation: normal bowel sounds Neuro General: patient alert, patient awake, does not move all extremities (Decreased use of left lower extremity), normal light touch, pain and propioception, no meningeal signs, no focal motor deficits, not confused and unable to assess gait Speech: speech normal Motor: strength abnormal Objective Last Vital Signs Temp 36.6 C 05/18/23 14:47 Pulse 89 05/18/23 14:47 Resp 18 05/18/23 14:47 BP 119/62 05/18/23 14:47 Pulse Ox 95 05/18/23 14:47 Laboratory Results - last 24 hr 05/17/23 05/18/23 05/18/23 19:45 06:20 06:20 WBC 5.44 RBC 3.88 L Hgb 11.9 L Hct 35.2 L MCV 91 MCH 30.7 MCHC 33.8 RDW 13.7 Plt Count 84 L MPV 9.2 Immature Gran % 0.6 Neutrophils % 85.7 Lymphocytes % 4.4 Monocytes % 8.3 Eosinophils % 0.4 Basophils % 0.6 Nucleated RBC % 0.0 Absolute Neutrophils 4.67 Absolute Lymphocytes 0.24 L Absolute Monocytes 0.45 Absolute Eosinophils 0.02 Absolute Basophils 0.03 RBC Morphology Normal Sodium 134 L Potassium 4.1 Chloride 100 Carbon Dioxide 24.5 Anion Gap 9.5 BUN 23 H Creatinine 1.1 Est GFR (CKD-EPI 2020) 66.61 Glucose 110 H Calcium 8.8 Magnesium 1.9 Troponin I 427 H* Time Spent with Patient Time Spent with Patient: 35-49 minutes Time was spent: preparing to see the patient(eg.review tests), ordering medications,tests, procedures, referring, communicating with other health day care aide, indepentently interpreting results, counseling the patient and care coordination
[2023-05-18] MEDS: Tamsulosin 0.4 MG CAPCR 0.8 MG PO (21:19)
[2023-05-18] MEDS: Rosuvastatin 20 MG TAB PO (21:20)
[2023-05-19 03:18] VITALS: BP 145/74; PULSE 86; RESP 16; TEMP 36; O2SAT 92
[2023-05-19 07:46] LABS: BUN 25 mg/dL (7-18); CREATININE 1.1 mg/dL (0.70-1.30); Calcium 8.6 mg/dL (8.5-10.1); Chloride 102 mmol/L (98-107); Estimated GFR 66.61 (mL/min/1.73m2); Glucose 135 mg/dL (74-106); Magnesium 1.9 mg/dL (1.8-2.4); Potassium 4.1 mmol/L (3.5-5.1); Sodium 136 mmol/L (136-145)
[2023-05-19 07:49] LABS: Troponin I 99 ng/L (<or=60)
[2023-05-19] MEDS: Lisinopril 10 MG TAB PO (07:59)
[2023-05-19] MEDS: Mirtazapine 15 MG TAB 7.5 MG PO (07:59)
[2023-05-19] MEDS: Sertraline 100 MG TAB 50 MG PO (07:59)
[2023-05-19] MEDS: Apixaban 5 MG TAB PO (07:59)
[2023-05-19] MEDS: Omeprazole 20 MG CAPCR PO (07:59)
[2023-05-19] MEDS: Cholecalciferol (Vitamin D3) 1,000 UNIT TAB 2000 UNITS PO (07:59)
[2023-05-19] MEDS: Baclofen 10 MG TAB 20 MG PO (08:00)
[2023-05-19 08:02] VITALS: BP 170/84; PULSE 89; RESP 22; TEMP 36.4; O2SAT 93
[2023-05-19 08:33] LABS: Abs Immature Grans 0.04 10^3/uL (0.0-0.06); Absolute Basophil Count 0.02 10^3/uL (0.0-0.2); Absolute Eosinophil Count 0.05 10^3/uL (0.0-0.7); Absolute Lymphocyte Count 0.31 10^3/uL (1.2-3.4); Absolute Monocyte Count 0.59 10^3/uL (0.1-0.8); Basophils % 0.4; HCT 35.8 % (40.0-50.0); HGB 12.2 g/dL (13.5-17.5); Immature Grans % 0.8; Lymphocytes % 6.1; MCH 30.4 pg (27.0-33.0); MCHC 34.1 % (32.0-36.0); MCV 89 fL (80-95); MPV 9.5 fL (8.0-11.0); Monocytes % 11.5; Neutrophils % 80.2; RBC 4.01 10^6/uL (4.36-5.78); RDW 13.2 % (11.8-14.1); RDW-SD 43.5 fL; WBC 5.11 10^3/uL (4.4-10.8)
[2023-05-19 08:57] LABS: Diff Comment Diff Reviewed; Platelet Count 89 10^3/uL (130-400); RBC Morphology Normal
--- NOTE | 2023-05-19 10:41 | PTTR_ITS ---
PT Notes Visit Reasons: Urinary Tract Infection Inpatient Physical Therapy Treatment Note Date: 05/19/23 PRECAUTIONS: Fall.?Standard.??L AFO on when OOB to reduce fall risk. SUBJECTIVE: Marquis is resting in bed with his present. He is agreeable to PT and is supportive in helping with treatment. OBJECTIVE:? Therapeutic Activities (17430): Direct one-on-one instruction in dynamic activities to improve functional performance: 19 minutes Provided skilled cues and instruction on performance and technique throughout. ? ? ? BED MOBILITY/TRANSFERS? Supine-sit: Mod A, difficulty scooting forward today Sit-stand: Min to Mod A dependent on surface height Stand-sit: CGA and supporting walker so doesn't tip ? GAIT? Assistive Device: FWW, L AFO? Weight bearing: Full Assist: CGA, verbal cues for keeping upright and close to walker Distance:?20 feet Deviation: Very forward flexed with hip flexion and trunk flexion, asymmetric stride, hip hike on left to help clear foot, decreased alfredo ASSESSMENT:?Some difficulty with bed mobility today. Does help to get AFO and shoes on. Mildly impulsive. Heavy forward flexion with ambulation and fatigue noted. Left leg lags or will catch toe as tiring not allowing for left leg to swing through. reports he is nearly back to baseline mobility. AFO is loose fitting around calf. Patient left resitting up in chair with bed alarm on and call light in reach. PLAN: Continue to progress mobility and strength/endurance for ongoing independence TREATMENT CODE/TIME: 10:13-10:32 (19 minutes) [id number] Shreya Echols, PT, DPT, OCS [facility] [place], [place]
[2023-05-19 11:05] VITALS: BP 111/63; PULSE 90; RESP 18; TEMP 36.4; O2SAT 93
[2023-05-19] MEDS: cefTRIAXone 1 GM/50 ML BAG IVPB (11:55)
--- NOTE | 2023-05-19 12:33 | PDOC.HHF2F_ITS ---
Home Health Referral Home Health Orders Clinical synopsis of why skilled professionals are needed: Generalized weakness, difficulty ambulating Medical diagnosis necessitation home health referral: Frequent falls secondary to acute illness and generalized weakness Physical Therapist: Check all that apply Increase strength & endurance for safe mobility at home: Ordered To design/establish home maintenance program: Ordered Fall reduction therapy program for patient with history of frequent falls: Ordered Home safety evaluation and teaching/gait training including stair management (if applicable): Ordered Home Bound Status Requires the aid of supportive device (check all that apply): Wheelchair and Walker Describe why leaving home would require a considerable and taxing effort: Requires frequent rest periods Encounter Date and Reason: I certify that a FTF encounter for this patient was performed on May 19, 2023 and that such encounter was related to the primary reason the patient requires home health services. The encounter was conducted in the following manner: * By me as the certifying physician, INSTRUCTOR OF NURSING, PA or * By an inpatient physician, INSTRUCTOR OF NURSING or PA during an inpatient stay who communicated findings to me, Certification And Authentication I certify that I composed the above information based on my clinical judgment relating to this patient's medical condition and, if applicable, clinical findings communicated to me by the NPP or inpatient physician who performed the FTF encounter. Name of Provider that will be monitoring home health services: Prem Rutledge
--- NOTE | 2023-05-19 12:36 | W.PM.DS.N ---
Date of service: 05/19/23 Time of Service: 14:48 DS: Diagnosis Discharge Diagnosis (1) Acute UTI: Status: Acute Asessment and Plan: Patient initially presented with generalized weakness resulting in multiple falls and was found to have a ellis-sensitive E. coli UTI for which he was initially treated with IV CTX which was transitioned to nitrofuantoin at discharge for an additional 5 days.. (2) Generalized muscle weakness: Status: Acute (3) Multiple falls: Status: Acute (4) Anticoagulated: Status: Acute (5) Troponin level elevated: Status: Acute Asessment and Plan: Trop peaked izzy ~470 and decreased thereafter. No chest pain or changes on EKG. Echo without acute findings. Recommendation for stress test but patient preferred to obtain this as an outpatient. (6) Atrial flutter: Status: Acute Discharge Plan Disposition Patient Disposition: Home W/Home Health Services Condition: Stable Discharge Details Reason For Visit: Urinary Tract Infection Admit Date/Time: 05/17/23 16:33 Admit Provider: Hussain Reeder Attending Provider: Hussain Reeder Primary Care Provider: Patience Alvarez Home Meds and New Rx's Prescriptions: New nitrofurantoin macrocrystal 100 mg capsule 100 mg PO BID 5 Days Qty: 10 0RF Rx Instructions: must administer with a meal/food No Action mirtazapine 7.5 mg tablet 7.5 mg PO DAILY tamsulosin 0.4 mg capsule 0.8 mg PO HS Qty: 90 Eliquis 5 mg tablet 5 mg PO BID Qty: 180 3RF sertraline 100 MG tablet 50 mg PO DAILY lisinopril 10 MG tablet 10 mg PO DAILY omeprazole 20 MG capsule,delayed release(DR/EC) 20 mg PO DAILY cholecalciferol (vitamin D3) [Vitamin D3] 2,000 UNIT capsule 1 cap PO DAILY baclofen 20 mg tablet 20 mg PO DAILY rosuvastatin [Crestor] 20 MG tablet 20 mg PO HS Discharge Instructions Instructions: Urinary Tract Infection in Men (DC) Activity:: Activity as Tolerated Equipment/Supplies:: No Equipment Needed Diet:: As Tolerated Discharge Orders Discharge Orders: Discharge Order (Routine); Ordered 05/19/23 Ordered By: Prem Rutledge DS: Summary Time Spent with Patient providing and/or coordinating discharge services: Greater than 30 minutes Status at Discharge Functional status at discharge: uses cane/walker Overall status at discharge: patient is back to baseline Mental Status: mental status grossly normal Speech and Movement: speech and movement normal Mood: congruent mood Affect: normal affect Exam Psych Mental Status: mental status grossly normal Speech and Movement: speech and movement normal Mood: congruent mood Affect: normal affect DS: Data Vitals/I&O Vitals and I&O: Vital Signs Temperature 36.4 C L 05/19/23 11:05 Temperature Source Tympanic 05/19/23 11:05 Pulse 90 05/19/23 11:05 Pulse Rhythm Regular 05/19/23 08:15 Pulse 116 H 05/17/23 17:20 Respiratory Rate 18 05/19/23 11:05 Respiratory Effort Normal, Non-Labored 05/19/23 08:15 Respiratory Depth Normal 05/19/23 08:15 Respiratory Pattern Normal 05/19/23 08:15 Blood Pressure 111/63 05/19/23 11:05 Blood Pressure Mean 67 05/17/23 16:31 Blood Pressure Position Sitting 05/17/23 09:31 Pulse Oximetry 93 05/19/23 11:05 Oxygen Delivery Method Room Air 05/19/23 11:05 Oxygen Flow Rate 0 05/19/23 11:05 Pain Level 0 05/19/23 11:05 Intake & Output 05/18/23 05/19/23 05/19/23 23:59 11:59 23:59 Intake Total 510 / 1510 Output Total 300 / 500 Balance 210 / 1010 Intake: IV 50 / 1050 Oral 460 / 460 Output: Urine 300 / 500 Other: Urine Color Yellow Yellow Urine Appearance Clear Clear Urine Odor None Voiding Methods Urinal Diaper Incontinent Data Completed and Pending Labs on day of discharge: Labs from last 24 hours 05/19/23 05/19/23 06:50 06:50 WBC 5.11 RBC 4.01 L Hgb 12.2 L Hct 35.8 L MCV 89 MCH 30.4 MCHC 34.1 RDW 13.2 Plt Count 89 L MPV 9.5 Immature Gran % 0.8 Neutrophils % 80.2 Lymphocytes % 6.1 Monocytes % 11.5 Eosinophils % 1.0 Basophils % 0.4 Nucleated RBC % 0.0 Absolute Neutrophils 4.10 Absolute Lymphocytes 0.31 L Absolute Monocytes 0.59 Absolute Eosinophils 0.05 Absolute Basophils 0.02 RBC Morphology Normal Sodium 136 Potassium 4.1 Chloride 102 Carbon Dioxide 27.0 Anion Gap 7.0 BUN 25 H Creatinine 1.1 Est GFR (CKD-EPI 2020) 66.61 Glucose 135 H Calcium 8.6 Magnesium 1.9 Troponin I 99 H* Preliminary micro results at discharge 05/17/23 16:44 Blood Culture - Preliminary Blood NO GROWTH 24 HOURS 05/17/23 16:53 Blood Culture - Preliminary Blood NO GROWTH 24 HOURS PFSH All Active Problems Generalized muscle weakness (Acute) Acute UTI (Acute) Multiple falls (Acute) Anticoagulated (Acute) Troponin level elevated (Acute) Atrial flutter (Acute) Medical History Anxiety Anxiety about health Aortic insufficiency Aortic valve regurgitation Ascending aorta dilation BPH w/o urinary obs/LUTS Cholelithiasis Erectile dysfunction GERD (gastroesophageal reflux disease) Hiatal hernia History of tobacco use HTN (hypertension) Hyperlipidemia Impaired fasting glucose Left-sided epistaxis LLQ abdominal pain Myelopathy Neoplasm of unspecified behavior of bone, soft tissue, and skin Seborrheic keratoses Spinal stenosis, cervical region Spinal stenosis, lumbar region, with neurogenic claudication Splenic lesion Surgical History Colonoscopy - MAC (09/02/17) Repair of inguinal hernia bilateral Social History Smoking/Tobacco Use Status: Former Tobacco Use Quit Date: 08/31/78 Tobacco: How many years used: 20 Smoking risk assessment performed?: Yes Alcohol Intake: current Alcohol Intake frequency: 0-2 drinks per day Alcohol type: hard liquor Drug use: Never Substance use type: does not use Housing: house What is your relationship status?: Panel score (0-1 are the most socially isolated patients): 1 What type of physical activity do you participate in: other Details: stationary cycle Duration: 15-30 minutes/day Frequency: daily Do you feel safe at home: Yes Do you feel safe in your relationship?: Yes Time Spent with Patient Time Spent with Patient: <45 minutes Time was spent: preparing to see the patient(eg.review tests), ordering medications,tests, procedures, indepentently interpreting results, counseling the patient and care coordination
--- NOTE | 2023-05-19 14:36 | CMDISCH_ITS ---
Date of service: 05/19/23 Time of Service: 14:36 LACE Index Scoring Tool Questions: Length of Stay (in days): 2 Was the patient admitted via the E.D.?: Yes E.D. Visits: 1 Answers: Total Score: 6 Risk of Readmission: Low Risk Care Management Discharge Plan Reason for Hospitalization: Acute UTI, elevated troponons Discharge Plan: Marquis will be discharged home with new home health services for nursing, PT and ENGINEERING ASSISTANT. He will follow up with his community providers and plan of care and transport with family. Patient/Family Education Needs: review of discharge instructions, limitations, medications, follow up plan, discuss Ask Me Three Services Needed at Discharge: Home Health Care Services
[2023-05-19 15:20] VITALS: BP 121/73; PULSE 87; RESP 18; TEMP 36.3; O2SAT 94
--- NOTE | 2023-05-20 05:41 | PT.INDS ---
PT Notes Visit Reasons: Urinary Tract Infection Physical Therapy Inpatient Discharge Summary Dates of service: 05/18/2023 - 05/19/23 Date: 05/20/23 Referring Doctor: Analy Zendejas NP PT Orders: PT CONSULT: Eval/Treat Precautions: Fall. Standard. Activity as tolerated. L AFO on when OOB to reduce fall risk. This document serves as a summary of care. No PT services were provided on this date. Patient Profile/Admitting Diagnosis: Marquis is a 83-year-old male patient who presented to the ED on 05/17/2023 due to repeated falls secondary to weakness and difficulty with walking. patient is admitted for management of acute urinary tract infection, generalized weakness, mutiple falls, increased troponin level, and atrial flutter. He participated in 2 PT sessions over the course of 2 days, and was deemed medically stable to return home. PMHX: All Active Problems?(Updated 05/17/23 @ 19:34 by Analy Zendejas NP) Generalized muscle weakness (Acute) Acute UTI (Acute) Multiple falls (Acute) Anticoagulated (Acute) Troponin level elevated (Acute) Atrial flutter (Acute) Medical History?(Updated 05/17/23 @ 19:34 by Analy Zendejas NP) Anxiety Anxiety about health Aortic insufficiency Aortic valve regurgitation Ascending aorta dilation BPH w/o urinary obs/LUTS Cholelithiasis Erectile dysfunction GERD (gastroesophageal reflux disease) Hiatal hernia History of tobacco use HTN (hypertension) Hyperlipidemia Impaired fasting glucose Left-sided epistaxis LLQ abdominal pain Myelopathy Neoplasm of unspecified behavior of bone, soft tissue, and skin Seborrheic keratoses Spinal stenosis, cervical region Spinal stenosis, lumbar region, with neurogenic claudication Splenic lesion Surgical History? Colonoscopy - MAC (09/02/17) Repair of inguinal hernia bilateral Social History/Home Situation: Lives with in a private home. Modified independent with use of four-wheeled walker indoor and outdoors. Equipment Owned/DME: 4WW Subjective: none obtained Objective: ROM: Right Upper Extremity: Shoulder Flexion lacks the last 25% of AROM. Shoulder abduction lacks the last 25% of AROM. Elbow flexion WFL. Wrist flexion WFL. Functional opening and closing of hand WFL. Left Upper Extremity: Shoulder Flexion lacks the last 25% of AROM. Shoulder abduction lacks the last 25% of AROM. Elbow flexion WFL. Wrist flexion WFL. Functional opening and closing of hand WFL. Right Lower Extremity: Hip flexion WFL. Hip abduction WFL. Knee flexion WFL. Ankle dorsiflexion WFL. Ankle plantarflexion WFL. Left Lower Extremity: Hip flexion lacks the last 50% of AROM. Hip abduction lacks the last 50% of AROM. Knee flexion 60 to 90 degrees. Knee extension -60 degrees. Ankle dorsiflexion absent. Ankle plantarflexion absent. Strength: Right Upper Extremity: Shoulder flexors 3-/5. Shoulder abductors 3-/5. Elbow flexors 4-/5. Elbow extensors 4-/5. Scheduling Specialist strong. Left Upper Extremity: Shoulder flexors 3-/5. Shoulder abductors 3-/5. Elbow flexors 4-/5. Elbow extensors 4-/5. Scheduling Specialist strong. Right Lower Extremity: Hip flexors 4-/5. Hip abductors 4-/5. Knee flexors 4-/5. Knee extensors 4-/5. Ankle dorsiflexors 4-/5. Ankle plantarflexors 4-/5. Left Lower Extremity: Hip flexors 3-/5. Hip abductors 3-/5. Knee flexors 3-/5. Knee extensors 2-/5. Ankle dorsiflexors 0/5. Ankle plantarflexors 0/5. BED MOBILITY/TRANSFERS? Supine-sit: Mod A, difficulty scooting forward today Sit-stand: CGA Stand-sit: CGA and supporting walker so doesn't tip ? GAIT? Assistive Device: FWW, L AFO? Weight bearing: Full Assist: CGA, verbal cues for keeping upright and close to walker Distance:?20 feet Balance: Static Sitting: Normal Dynamic Sitting: Normal Static Standing: Fair Dynamic Standing: Fair ASSESSMENT: Patient participated in 2 PT sessions over the course of 2 days, and was deemed medically stable to return home. He requires continued intervention via PT for progress toward established goals. Goals: Goals X1 week 1. Supine-Sit independent (Progressing Toward) 2. Sit-Supine independent (Progressing Toward) 3. Sit-Stand independent (Progressing Toward) 4. Stand-Sit independent with 4WW (Progressing Toward) 5. Bed-Chair independent with 4WW(Progressing Toward) 6. Chair-Bed independent with 4WW(Progressing Toward) 7. Independent gait on level surface with use of 4WW for at least 150 feet without report of pain nor dyspnea(Progressing Toward) 8. Independent stair negotiation while holding onto B rails for at least 3 steps without report of pain nor dyspnea(Progressing Toward) 9. Independent with home exercise program (Progressing Toward) 10. Good static and dynamic standing balance/tolerance(Progressing Toward) Plan of Care/Treatment Plan: D/C from PT in acute care setting DISCHARGE RECOMMENDATIONS: [] Home with no services [] [X] Home with services. Patient will benefit from home health PT services in order to progress mobility level using least restrictive assistive ambulatory device, assess home safety, identify additional equipment needs, and establish a functional maintenance program that will increase ability of patient to remain at home. [] Home with outpatient PT [] [] SNF for continued rehabilitation [] [] Art Gallery Director Care [] [] SNF versus LTC based on ability to participate and progress [] TREATMENT CODE/TIME: none Thank you for the opportunity to participate in the care of this patient. Lisandra Kennedy PT, DPT [facility] [place], [place]
== END 2023-05-19 16:48 | disposition home health service (06) | DRG 690 ==
LOC: ER 16:02 → MS 17:32
PROVIDERS: Nurse Practitioner Family; Admitting Provider Internal Medicine; Emergency Provider Physician Assistant; PCP Family Medicine; Visit Provider Internal Medicine
DX: N39.0 Urinary tract infection, site not specified (principal); I48.92 Unspecified atrial flutter; M62.81 Muscle weakness (generalized); R29.6 Repeated falls; Z79.01 Long term (current) use of anticoagulants; Z66 Do not resuscitate; I71.40 Abdominal aortic aneurysm, without rupture, unspecified; F41.9 Anxiety disorder, unspecified; I35.1 Nonrheumatic aortic (valve) insufficiency; N40.0 Benign prostatic hyperplasia without lower urinary tract symptoms; K21.9 Gastro-esophageal reflux disease without esophagitis; K44.9 Diaphragmatic hernia without obstruction or gangrene; I10 Essential (primary) hypertension; Z87.891 Personal history of nicotine dependence; E78.5 Hyperlipidemia, unspecified; R73.01 Impaired fasting glucose; M48.02 Spinal stenosis, cervical region; M48.062 Spinal stenosis, lumbar region with neurogenic claudication; R74.8 Abnormal levels of other serum enzymes
CPT/HCPCS: 36415; 74177; 80048; 80053; 84145; 87040; 87077; 93005; 93306; 93308; 96361; 96365; 97162; 97530; 99285; 70450; 71260; 72125; 81003; 81015; 83605; 83735; 84484; 85025; 87086; 87186; 93010; 99222; 99232; 99239; J0696; J3490

== ENCOUNTER 2023-06-15 00:35 | Outpatient (CLI) | payer MEDICARE, SELFPAY ==
--- NOTE | 2023-06-15 09:15 | DI.NM_ITS ---
APPROVED REPORT Exam: Pharmacologic Patient Location: Out-Patient Room/Bed: Stress Nurse: Brayan Darling RN Ordering Provider:HEENA DEVINE, Contact Number: [phone] BMI: 22.80 Baseline Rhythm: Atrial Flutter Indications: Elevated troponin Medical History Medical History: Atrial flutter, HTN, Aortic insufficiency, aortic vlave regurgitation, GERD. Cardiac Medications: Lisinopril, Lisinopril Allergies: NKA Cardiac Risk Factors: Aortic insufficiency, aortic valve regurgitation,HTN. Previous Cardiac Procedures: None Pretest Chest Pain Characteristics: No chest pain Exercise History: Sedentary Physical Disabilities: Generalized muscle weakness. Lung Sounds: Clear to auscultation Heart Sounds: Murmur, Regular Stress Test Details Test: Pharmacologic stress testing performed using 0.4 mg of regadenoson per 5 mL given IV over 10 s econds. Reason for pharmacologic stress test: physical limitation. Nuclear Acquisition: Rest Tc-99m/Stress Tc-99m 1 day Rest Isotope: Tc-99m Sestamibi. Dose: 10.0 Date: 06/15/2023 Injection Time: 0925 Stress Isotope: Tc-99m Sestamibi. Dose: 31.0 Date: 06/15/2023 Injection Time: 1136 HR Resting HR Supine: 80 bpm Max Heart Rate (APMHR): 137.569546 bpm Target HR (85% APMHR): 116.405850 bpm Max HR Achieved: 112 bpm % of APMHR: 81.75 Recovery HR: 86 bpm HR response to stress: Normal HR response to stress BP Resting BP Supine: 170/90 mmHg Max BP: 172/84 mmHg Recovery BP: 136/66 mmHg BP response to stress: Normal blood pressure response to stress. ECG Resting ECG: Atrial Flutter Ectopy: none Stress ECG: Atrial Flutter ST Change: No significant ST segment changes noted Recovery ECG: Atrial Flutter Recovery ST Change: No significant ST segment changes noted Recovery Arrhythmia: none Clinical Rate Pressure Product: 15443 Stress ECG Conclusion 1. Resting electrocardiogram showed atrial flutter with a right bundle branch block 2. Patient underwent testing using pharmacologic stress with regadenoson 3. Peak heart rate achieved was 82% of predicted for age 4. The electrocardiographic portion of the test was nondiagnostic 5. See MPI report Stress Test Summary STAGE HR BP SpO2 Symptoms NOTES Supine 80 170/90 none 1 min post Lexiscan injection 85 172/84 92 none 3 min post Lexiscan injection 86 144/66 none 6 min post Lexiscan injection 86 136/66 none MPI Conclusion Myocardial perfusion demonstrates infarction of the inferobasal and posterior lateral garay. There i s no ischemia EF is 42% with inferobasal and posterolateral wall motion abnormalities Radiologist Interpretation Radiologist Interpretation by: Gino Rand MD Interpretation Date/Time: 06/15/2023 16:12:00
[2023-06-15] MEDS: Regadenoson 0.4 MG/5 ML SYR IVP (14:18)
== END 2023-06-15 00:55 ==
LOC: DI 00:36
PROVIDERS: PCP Family Medicine; Visit Provider Family Medicine
DX: R94.31 Abnormal electrocardiogram [ECG] [EKG] (principal)
CPT/HCPCS: 78452; 93016; 93017; J2785

== ENCOUNTER → 2023-06-16 14:01 | Outpatient (BNVA) | payer MEDICARE, SELFPAY | PROVIDERS: PCP Family Medicine; Visit Provider Internal Medicine Cardiovascular Disease | DX: Z79.01 Long term (current) use of anticoagulants (principal); I25.10 Atherosclerotic heart disease of native coronary artery without angina pectoris; I48.92 Unspecified atrial flutter; I35.1 Nonrheumatic aortic (valve) insufficiency; I77.810 Thoracic aortic ectasia | CPT/HCPCS: 99214 ==

== ENCOUNTER 2023-10-23 15:53 | Outpatient (REF) | payer MEDICARE, SELFPAY ==
[2023-10-23 15:35] LABS: HCT 41.7 % (40.0-50.0); HGB 14.1 g/dL (13.5-17.5); MCH 30.6 pg (27.0-33.0); MCHC 33.8 % (32.0-36.0); MCV 91 fL (80-95); MPV 9.8 fL (8.0-11.0); Platelet Count 114 10^3/uL (130-400); RBC 4.61 10^6/uL (4.36-5.78); RDW 13.5 % (11.8-14.1); RDW-SD 45.2 fL; WBC 5.08 10^3/uL (4.4-10.8)
[2023-10-23 15:58] LABS: ALT 17 U/L (16-63); AST 16 U/L (15-37); Albumin 3.8 g/dL (3.4-5.0); Alkaline Phosphatase 104 U/L (46-116); Anion Gap 6.9 mmol/L (3-11); BUN 19 mg/dL (7-18); Bilirubin, Total 0.6 mg/dL (0.2-1.0); CO2 32.1 mmol/L (21.0-32.0); CREATININE 1.1 mg/dL (0.70-1.30); Calcium 8.7 mg/dL (8.5-10.1); Chloride 107 mmol/L (98-107); Estimated GFR 66.61 (mL/min/1.73m2); Glucose 148 mg/dL (74-106); Potassium 4.1 mmol/L (3.5-5.1); Sodium 146 mmol/L (136-145); Total Protein 7.2 g/dL (6.4-8.2)
[2023-10-23 16:30] LABS: Hemoglobin A1C 5.9 % (<5.7)
== END 2023-10-23 15:54 | disposition home or self-care (01) ==
LOC: NCHCN 15:53
PROVIDERS: PCP Family Medicine; Visit Provider Family Medicine
DX: R73.03 Prediabetes (principal); R74.01 Elevation of levels of liver transaminase levels; Z86.2 Personal history of diseases of the blood and blood-forming organs and certain disorders involving the immune mechanism
CPT/HCPCS: 80053; 85027; 83036

== ENCOUNTER → 2023-12-17 10:33 | Outpatient (BNVA) | payer MEDICARE, SELFPAY | PROVIDERS: PCP Family Medicine; Referring Provider Family Medicine; Visit Provider Internal Medicine Cardiovascular Disease | DX: I25.10 Atherosclerotic heart disease of native coronary artery without angina pectoris (principal); I48.3 Typical atrial flutter | CPT/HCPCS: 99213 ==

== ENCOUNTER 2024-05-24 01:15 | Outpatient (CLI) | payer MEDICARE, SELFPAY ==
--- NOTE | 2024-05-24 | DI.US_ITS ---
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 IMPRESSION: 1. Stable 2.8 cm distal abdominal aorta. There is also ectasias seen in the right common iliac arter y. DATA REPOSITORY:
== END 2024-05-24 01:35 ==
LOC: DI 01:15
PROVIDERS: PCP Family Medicine; Visit Provider Family Medicine
DX: Z13.6 Encounter for screening for cardiovascular disorders (principal)
CPT/HCPCS: 76775

== ENCOUNTER 2024-08-01 15:44 | Outpatient (REF) | payer MEDICARE, SELFPAY ==
[2024-08-01 18:48] LABS: Anion Gap 7.4 mmol/L (3-11); BUN 21 mg/dL (7-18); CO2 30.6 mmol/L (21.0-32.0); CREATININE 1.3 mg/dL (0.70-1.30); Chloride 108 mmol/L (98-107); Estimated GFR 54.17 (mL/min/1.73m2); Glucose 111 mg/dL (74-106); Potassium 4.1 mmol/L (3.5-5.1); Sodium 146 mmol/L (136-145)
[2024-08-02 21:57] LABS: PSA, Screening 0.8 ng/mL (<=6.5)
== END 2024-08-01 15:45 | disposition home or self-care (01) ==
LOC: NCHCN 15:44
PROVIDERS: PCP Family Medicine; Visit Provider Family Medicine
DX: R32 Unspecified urinary incontinence (principal)
CPT/HCPCS: 80048; 84153

== ENCOUNTER 2024-08-14 00:01 | Inpatient (IN) | payer MEDICARE, SELFPAY ==
[2024-08-14] VITALS (49 sets, daily range): BP systolic 142–207; BP diastolic 49–77; PULSE 55–89; RESP 13–21; TEMP 36.1–37.4; O2SAT 88–100
--- NOTE | 2024-08-14 | RT.EKG_ITS ---
APPROVED REPORT Exam: Resting ECG Reason for Exam: ams, weakness Patient Location: E HR:80 bpm ECG Measurements Heart Rate 80 AXIS TX 245 P 76 QRSd 157 QRS -47 QT 494 T 53 QTc 568 Conclusion Sinus rhythm...normal P axis, V-rate 60- 99 Prolonged TX interval...TX >220, V-rate 50- 90 Right bundle branch block...QRSd>120, terminal axis(90,270) Anterior infarct, old...Q >40mS, abnormal ST-T, V2-V5 aflutter, rate -[address] segment or T wave abnormalities to suggest occlusive [place]
[2024-08-14 00:18] LABS: Abs Immature Grans 0.05 10^3/uL (0.0-0.06); Absolute Basophil Count 0.03 10^3/uL (0.0-0.2); Absolute Eosinophil Count 0.05 10^3/uL (0.0-0.7); Absolute Lymphocyte Count 0.34 10^3/uL (1.2-3.4); Absolute Monocyte Count 0.44 10^3/uL (0.1-0.8); Absolute Neutrophil Count 5.89 10^3/uL (1.2-6.7); Basophils % 0.4 %; Eosinophils % 0.7 %; HCT 38.7 % (40.0-50.0); HGB 12.6 g/dL (13.5-17.5); Immature Grans % 0.7 %; MCHC 32.6 % (32.0-36.0); MCV 89 fL (80-95); MPV 9.5 fL (8.0-11.0); Monocytes % 6.5 %; Neutrophils % 86.7 %; Platelet Count 120 10^3/uL (130-400); RBC 4.34 10^6/uL (4.36-5.78); RDW 14.2 % (11.8-14.1); RDW-SD 46.2 fL
--- NOTE | 2024-08-14 00:23 | DI.CT_ITS ---
Exam(s) CT BRAIN NECK CTA EXAM: CT BRAIN NECK CTA CLINICAL HISTORY: aphasia, no movement BLE. TECHNIQUE: Imaging Protocol: Axial CT angiography was performed with multi-slice acquisition and mu lti-planar and/or 3D reconstructions. CONTRAST MATERIAL: Intravenous: Omnipaque 350 Contrast volume:structured data in ml COMPARISON: CT CT HEAD CERVICAL SPINE WO from 05/17/2023 FINDINGS: CTA Neck W: Aortic arch anatomy: The aortic arch anatomy is conventional and there is no significant stenosis at the origin of the great vessels off of the aortic arch. No intimal flap evident. Anterior circulation: Both common carotid arteries ascend with normal luminal diameters. At the level the carotid bulbs and proximal internal carotid arteries there is mild partially calcifi ed plaque at the carotid bifurcations and proximal internal carotid arteries. Amount of stenosis is estimated at less than 20 percent bilaterally. Internal carotid arteries in the upper neck are paten t bilaterally. Also patent in the skull base-carotid canals. Posterior circulation: Both vertebral arteries originate in conventional fashion off of the subclavian arteries and there is no obvious stenosis at the origin of the vertebral arteries. Both vertebral arteries exhibit normal luminal diameters within the foramen transversarium. Both vertebral arteries contribute to the formation of the basilar artery at the skull base. CTA Brain W: Anterior circulation: Both internal carotid arteries are patent in the skull base-carotid canals as well as within the cave rnous sinuses. The supraclinoid aspects of the ICAs are patent. Both A1 segments are patent as are the anterior cer ebral arteries and there is no evidence of aneurysm at the level of the anterior communicating artery . Both middle cerebral arteries are patent with no evidence of significant stenosis nor intraluminal th rombus. There also no aneurysms of these vessels. Posterior circulation: The basilar artery ascends in the midline. Distally it gives off patent bilateral superior cerebella r arteries. Above this level the basilar artery terminates as a thin patent bilateral posterior cerebral arteries . There are prominent posterior communicating arteries on both sides the faifms-kg-[id number] feeding th e posterior cerebral arteries. Posterior cerebral arteries are patent. There is no evidence of aneurysm at the tip of the basilar artery nor elsewhere in the kbsted-qk-Qitt is. CT BRAIN: There is no evidence of intracranial hemorrhage, mass effect, or shift of midline structures. There are no extra-axial fluid collections. Ventricles are not enlarged or shifted. There are no ring enh ancing lesions in the brain and no abnormal meningeal enhancement. There is a moderate amount of bilateral periventricular hypodensity consistent chronic small vessel d isease. There is a nonhemorrhagic lacunar infarct in the right periventricular white matter and in t he anterior limb of the right internal capsule. IMPRESSION: 1. Patent carotid arteries in the neck. No hemodynamically significant stenosis. Amount of stenosis at the level the carotid bifurcations and proximal internal carotid arteries is approximately 20 per cent bilaterally. 2. Patent vertebral arteries. 3. Patent intracranial arteries. There bilateral communicating arteries on both sides the [place]. 4. White matter ischemic changes in the brain. No ring enhancing lesions. If clinically indicated f ollow-up MRI with diffusion imaging can be performed for added sensitivity and specificity. RADIATION DOSE DELIVERED: 2,203.45mGy.cm Total DLP DATA REPOSITORY: All CT scans at this facility are submitted to the National Radiology Data Registry (NRDR) Dose Index Registry (DIR) with the [employer] (ACR). RADIATION OPTIMIZATION: All CT scans at this facility use at least one of these dose optimization te chniques: automated exposure control; mA and/or kV adjustment per patient size (includes targeted exa ms where dose is matched to clinical indication); or iterative reconstruction.
[2024-08-14] MEDS: Omnipaque 350 MG/ML 100 ML BTL 70 ML IJ (00:28)
[2024-08-14] MEDS: Normal Saline - Diluent 50 ML VIAL IJ (00:28)
[2024-08-14 00:32] LABS: ALT 14 U/L (16-63); AST 18 U/L (15-37); Albumin 3.6 g/dL (3.4-5.0); Alkaline Phosphatase 114 U/L (46-116); Anion Gap 7.6 mmol/L (3-11); BUN 21 mg/dL (7-18); Bilirubin, Total 0.48 mg/dL (0.2-1.0); CO2 28.4 mmol/L (21.0-32.0); CREATININE 1.1 mg/dL (0.70-1.30); Calcium 8.5 mg/dL (8.5-10.1); Chloride 108 mmol/L (98-107); Estimated GFR 66.19 (mL/min/1.73m2); Glucose 152 mg/dL (74-106); INR 1.3 (0.9-1.1); PTT Activated 28.6 sec (23.6-32.8); Potassium 4.1 mmol/L (3.5-5.1); Prothrombin Time 12.7 sec (9.1-11.1); Sodium 144 mmol/L (136-145); Total Protein 7.3 g/dL (6.4-8.2)
[2024-08-14 00:35] LABS: Troponin I 34 ng/L (<or=76)
--- NOTE | 2024-08-14 00:58 | W.ED.GENAD ---
Discharge Plan Disposition Patient Disposition: Admit to [facility] Condition: Serious Discharge Details Clinical Impression: Stroke Admit Date/Time: 08/14/24 03:12 Admit Provider: Donald De Anda Attending Provider: Donald De Anda Primary Care Provider: Patience Alvarez ED Provider: Katelin Hardin Discharge Data Discharge Date/Time-TO BE ENTERED AT DEPARTURE: 08/14/24 04:13 HPI General Mode of arrival: EMS. Date/Time Provider Initiated Documentation: 08/14/24 00:05. Limitations to Documentation: other (aphasia). Information obtained by: family, EMS and old records reviewed. HPI Narrative: 84yo M with hx HTN, HLD, spinal stenosis, aflutter, on eliquis, presenting via EMS for garbled speech. No history able to be obtained from patient. Per EMS, LKN this evening, unable to clarify further. Unsure if pt on blood thinners or past medical history; medical history obtained from [facility] chart review. Blood glucose 172. subsequently presented to bed, states patient was normal around 1800 while eating dinner. Sometime after than was 'not making sense' and she could not get him to get out of bed and so called EMS. States he takes eliquis, not sure why. Was on a baby aspirin as well but stopped that some time ago because he was having nosebleeds. For the past few days he has seemed a little run down and she wonders if he has a UTI. Per , he has not complained of fevers, chills, rash, vomiting, chest pain, shortness of breath, or other concerns. Related Data Home Medications ?Medication ?Instructions ?Recorded ?Confirmed cholecalciferol (vitamin D3) 50 1 cap PO DAILY 09/15/14 08/14/24 mcg (2,000 unit) capsule (Vitamin D3) lisinopril 10 mg tablet 10 mg PO DAILY 09/15/14 08/14/24 omeprazole 20 mg capsule,delayed 20 mg PO DAILY 09/15/14 08/14/24 release sertraline 100 mg tablet 50 mg PO DAILY 09/15/14 08/14/24 rosuvastatin 20 mg tablet (Crestor) 20 mg PO HS 08/28/17 08/14/24 baclofen 20 mg tablet 20 mg PO DAILY 05/13/21 08/14/24 mirtazapine 7.5 mg tablet 7.5 mg PO DAILY 05/13/21 08/14/24 tamsulosin 0.4 mg capsule 0.8 mg PO HS #90 tab-caps 11/17/22 08/14/24 apixaban 5 mg tablet (Eliquis) 5 mg PO BID #180 tabs 11/06/23 08/14/24 cyanocobalamin (vitamin B-12) 1,000 mcg PO DAILY 08/02/24 08/14/24 1,000 mcg capsule Previous Rx's ?Medication ?Instructions ?Recorded apixaban 5 mg tablet (Eliquis) 5 mg PO BID #180 tabs 11/06/23 Allergies Allergy/AdvReac Type Severity Reaction Status Date / Time No Known Allergies Allergy Verified 08/14/24 00:33 General Stated Complaint: CVA/TIA HARRISON: 2 Review of Systems Narrative: see HPI Exam Narrative Exam Narrative: General: Alert, in no acute distress. Head: Normocephalic, atraumatic Neck: Trachea midline, ?Neck supple. ENT: ?MMM.? No oropharygeal lesions or exudate. Cardiac: ?RRR, no murmurs appreciated Resp: No respiratory distress. CTAB. Abd: ?Soft, non-distended, nontender Extremities: ?No deformities.? No peripheral edema. Neuro: ? GCS 9 (E3 V2 M4).? PERRL.? Aphasia. Motor/Sensory- Withdraws uppers symmetric bilaterally, no response to noxious stimuli BLE. Not following commands. Course Vital Signs Vital signs: Vital Signs Respiratory Rate 19 08/14/24 00:06 Pulse Oximetry 97 08/14/24 00:06 Temperature 36.4 C 08/14/24 00:10 Temperature Source Temporal Artery Scan 08/14/24 00:10 Pulse 78 08/14/24 00:31 Pulse 79 08/14/24 00:31 Respiratory Rate 16 08/14/24 00:31 Respiratory Effort Normal, Non-Labored 08/14/24 00:27 Respiratory Depth Normal 08/14/24 00:27 Respiratory Pattern Normal 08/14/24 00:27 Blood Pressure 190/73 H 08/14/24 00:31 Blood Pressure Mean 116 08/14/24 00:31 Blood Pressure Position Sitting 08/14/24 00:10 Pulse Oximetry 98 08/14/24 00:31 Oxygen Delivery Method Room Air 08/14/24 00:10 Oxygen Flow Rate 0 08/14/24 00:10 Pain Level 0 08/14/24 00:10 Lab/Test Results Lab/Test Results: Laboratory Tests Range/Units 08/14/24 08/14/24 08/14/24 00:01 00:01 00:01 WBC (4.4-10.8) 10^3/uL 6.80 RBC (4.36-5.78) 10^6/uL 4.34 L Hgb (13.5-17.5) g/dL 12.6 L Hct (40.0-50.0) % 38.7 L MCV (80-95) fL 89 MCH (27.0-33.0) pg 29.0 MCHC (32.0-36.0) % 32.6 RDW (11.8-14.1) % 14.2 H Plt Count (130-400) 10^3/uL 120 L MPV (8.0-11.0) fL 9.5 Immature Gran % % 0.7 Neutrophils % % 86.7 Lymphocytes % % 5.0 Monocytes % % 6.5 Eosinophils % % 0.7 Basophils % % 0.4 Nucleated RBC % (0.0-0.3) % 0.0 Absolute Neutrophils (1.2-6.7) 10^3/uL 5.89 Absolute Lymphocytes (1.2-3.4) 10^3/uL 0.34 L Absolute Monocytes (0.1-0.8) 10^3/uL 0.44 Absolute Eosinophils (0.0-0.7) 10^3/uL 0.05 Absolute Basophils (0.0-0.2) 10^3/uL 0.03 PT Cancelled 12.7 H INR Cancelled 1.3 H APTT (23.6-32.8) sec 28.6 Sodium (136-145) mmol/L 144 Potassium (3.5-5.1) mmol/L 4.1 Chloride (98-107) mmol/L 108 H Carbon Dioxide (21.0-32.0) mmol/L 28.4 Anion Gap (3-11) mmol/L 7.6 BUN (7-18) mg/dL 21 H Creatinine (0.70-1.30) mg/dL 1.1 Est GFR (CKD-EPI 2020) (mL/min/1.73m2) 66.19 Glucose (74-106) mg/dL 152 H Calcium (8.5-10.1) mg/dL 8.5 Magnesium (1.8-2.4) mg/dL 2.0 Total Bilirubin (0.2-1.0) mg/dL 0.48 AST (15-37) U/L 18 ALT (16-63) U/L 14 L Alkaline Phosphatase (46-116) U/L 114 Troponin I (<or=76) ng/L 34 Total Protein (6.4-8.2) g/dL 7.3 Albumin (3.4-5.0) g/dL 3.6 Medical Decision Making 84yo M with hx HTN, HLD, spinal stenosis, aflutter, on eliquis, presenting via EMS for garbled speech. No history able to be obtained from patient and LKN sometime this evening per EMS, blood glucose 170's, no further pertinent history available. Hypertensive on arrival, vital signs otherwise reassuring. GCS 9 (V3 V2 M4) on exam with severe aphasia and no movement BLE. reportedly en-route hopefully able to provide additional history. IV placed and labs drawn during my assessment and given exam highly concerning for CVA patient taken emergently to CT scanner. at bedside able to clarify that pt is on eliquis and was last normal at around 1800, so not a candidate for lytics. CT head independently reviewed, no intracranial bleed on my view, radiology read below with no bleed and no large vessel occlusion. Tele neurology consulted, agree exam consistent with CVA. Advised admission for standard stroke care, no indication for transfer as pt not a candidate for intervention. EKG aflutter, rate in 80's. Labs reviewed as below, CBC reassuring no leukocytosis and mild anemia (baseline) and mild thrombotyopenia (improved from baseline), CMP with no actionable abnormalities, initial troponin normal, coags normal. Discussed with [facility] hospitalist Dr. De Anda and pt accepted to medicine service for further workup and management. On reassessment exam is improving, GCS now 12 (E4 V3 M5); occasionally intelligible words but not following commands, able to move RLE. Transferred to the floor. Imaging Data Radiologic Study: Imaging: CT Scan Radiologist's impression: CT head & neck: IMPRESSION: 1. No acute brain findings. 2. No acute vascular findings IMPRESSION: 1. Hydrostatic interstitial pulmonary edema/CHF. 2. No acute vascular findings. Lab Data Lab results reviewed: Yes I reviewed the patient's lab results. Labs: Laboratory Tests Range/Units 08/14/24 08/14/24 08/14/24 00:01 00:01 00:01 WBC (4.4-10.8) 10^3/uL 6.80 RBC (4.36-5.78) 10^6/uL 4.34 L Hgb (13.5-17.5) g/dL 12.6 L Hct (40.0-50.0) % 38.7 L MCV (80-95) fL 89 MCH (27.0-33.0) pg 29.0 MCHC (32.0-36.0) % 32.6 RDW (11.8-14.1) % 14.2 H Plt Count (130-400) 10^3/uL 120 L MPV (8.0-11.0) fL 9.5 Immature Gran % % 0.7 Neutrophils % % 86.7 Lymphocytes % % 5.0 Monocytes % % 6.5 Eosinophils % % 0.7 Basophils % % 0.4 Nucleated RBC % (0.0-0.3) % 0.0 Absolute Neutrophils (1.2-6.7) 10^3/uL 5.89 Absolute Lymphocytes (1.2-3.4) 10^3/uL 0.34 L Absolute Monocytes (0.1-0.8) 10^3/uL 0.44 Absolute Eosinophils (0.0-0.7) 10^3/uL 0.05 Absolute Basophils (0.0-0.2) 10^3/uL 0.03 PT Cancelled 12.7 H INR Cancelled 1.3 H APTT (23.6-32.8) sec 28.6 Sodium (136-145) mmol/L 144 Potassium (3.5-5.1) mmol/L 4.1 Chloride (98-107) mmol/L 108 H Carbon Dioxide (21.0-32.0) mmol/L 28.4 Anion Gap (3-11) mmol/L 7.6 BUN (7-18) mg/dL 21 H Creatinine (0.70-1.30) mg/dL 1.1 Est GFR (CKD-EPI 2020) (mL/min/1.73m2) 66.19 Glucose (74-106) mg/dL 152 H Calcium (8.5-10.1) mg/dL 8.5 Magnesium (1.8-2.4) mg/dL 2.0 Total Bilirubin (0.2-1.0) mg/dL 0.48 AST (15-37) U/L 18 ALT (16-63) U/L 14 L Alkaline Phosphatase (46-116) U/L 114 Troponin I (<or=76) ng/L 34 Total Protein (6.4-8.2) g/dL 7.3 Albumin (3.4-5.0) g/dL 3.6 Urine Color (Yellow) Urine Clarity (Clear) Urine pH (5-8) Ur Specific [place] (1.005-1.025) Urine Protein (Neg-Trace) mg/dL Urine Ketones (Negative) mg/dL Urine Blood (Negative) Urine Nitrite (Negative) Urine Bilirubin (Negative) Urine Urobilinogen (Up to 0.2) mg/dL Ur Leukocyte Esterase (Negative) Urine RBC (0-2) HPF Urine WBC (0-5) HPF Ur Epithelial Cells (Negative) HPF Urine Crystals (Negative) HPF Urine Bacteria (Negative) HPF Urine Casts (Negative) LPF Urine Mucus (Negative) Ur Culture Indicated? Urine Glucose (Negative) mg/dL Range/Units 08/14/24 08/14/24 00:16 01:04 WBC (4.4-10.8) 10^3/uL RBC (4.36-5.78) 10^6/uL Hgb (13.5-17.5) g/dL Hct (40.0-50.0) % MCV (80-95) fL MCH (27.0-33.0) pg MCHC (32.0-36.0) % RDW (11.8-14.1) % Plt Count (130-400) 10^3/uL MPV (8.0-11.0) fL Immature Gran % % Neutrophils % % Lymphocytes % % Monocytes % % Eosinophils % % Basophils % % Nucleated RBC % (0.0-0.3) % Absolute Neutrophils (1.2-6.7) 10^3/uL Absolute Lymphocytes (1.2-3.4) 10^3/uL Absolute Monocytes (0.1-0.8) 10^3/uL Absolute Eosinophils (0.0-0.7) 10^3/uL Absolute Basophils (0.0-0.2) 10^3/uL PT INR APTT (23.6-32.8) sec Sodium (136-145) mmol/L Potassium (3.5-5.1) mmol/L Chloride (98-107) mmol/L Carbon Dioxide (21.0-32.0) mmol/L Anion Gap (3-11) mmol/L BUN (7-18) mg/dL Creatinine (0.70-1.30) mg/dL Est GFR (CKD-EPI 2020) (mL/min/1.73m2) Glucose (74-106) mg/dL Calcium (8.5-10.1) mg/dL Magnesium (1.8-2.4) mg/dL Total Bilirubin (0.2-1.0) mg/dL AST (15-37) U/L ALT (16-63) U/L Alkaline Phosphatase (46-116) U/L Troponin I (<or=76) ng/L 37 Total Protein (6.4-8.2) g/dL Albumin (3.4-5.0) g/dL Urine Color (Yellow) Yellow Urine Clarity (Clear) Clear Urine pH (5-8) 7.0 Ur Specific [place] (1.005-1.025) 1.025 Urine Protein (Neg-Trace) mg/dL Trace Urine Ketones (Negative) mg/dL Negative Urine Blood (Negative) Trace-intact H Urine Nitrite (Negative) Negative Urine Bilirubin (Negative) Negative Urine Urobilinogen (Up to 0.2) mg/dL 1.0 H Ur Leukocyte Esterase (Negative) Negative Urine RBC (0-2) HPF 5-10 H Urine WBC (0-5) HPF Negative Ur Epithelial Cells (Negative) HPF Rare Urine Crystals (Negative) HPF Negative Urine Bacteria (Negative) HPF Rare Urine Casts (Negative) LPF Negative Urine Mucus (Negative) Negative Ur Culture Indicated? No Urine Glucose (Negative) mg/dL Negative Quality:SDOH Health Related Social Needs: No Data to Display Critical Care Time Critical Care Time Critical Care Time: Yes Total Critical Care Time: 31 Attestation: Due to a high probability of clinically significant, life threatening deterioration, the patient required my highest level of preparedness to intervene emergently and I personally spent this critical care time directly and personally managing the patient. This critical care time included obtaining a history; examining the patient; pulse oximetry; ordering and review of studies; arranging urgent treatment with development of a management plan; evaluation of patient's response to treatment; frequent reassessment; and, discussions with other providers. This critical care time was performed to assess and manage the high probability of imminent, life-threatening deterioration that could result in multi-organ failure. It was exclusive of separately billable procedures and treating other patients? PFSH All Active Problems (Updated 08/14/24 @ 06:46 by Katelin Hardin MD) Stroke (Chronic) Cerebrovascular accident (CVA) (Acute) Prediabetes (Acute) Essential hypertension (Acute) Nicotine dependence (Acute) Atherosclerosis of coronary artery without angina pectoris (Acute) Rosacea (Acute) Diaphragmatic hernia (Acute) Left foot drop (Acute) BPH (benign prostatic hyperplasia) (Chronic) Abdominal pain (Acute) Splenomegaly (Acute) Aortic ectasia, thoracic (Acute) Chronic myelopathy (Acute) Vitamin B12 deficiency (Acute) Aneurysm of infrarenal abdominal aorta (Acute) Thrombocytopenic disorder (Acute) Macular degeneration (Acute) Vitamin D deficiency (Acute) Coronary artery disease (Chronic) Generalized muscle weakness (Acute) Acute UTI (Acute) Multiple falls (Acute) Anticoagulated (Acute) Atrial flutter (Acute) Medical History Left-sided epistaxis Aortic insufficiency Ascending aorta dilation Seborrheic keratoses Neoplasm of unspecified behavior of bone, soft tissue, and skin Spinal stenosis, lumbar region, with neurogenic claudication Cholelithiasis Hiatal hernia HTN (hypertension) Splenic lesion GERD (gastroesophageal reflux disease) BPH w/o urinary obs/LUTS Impaired fasting glucose Anxiety about health Hyperlipidemia Aortic valve regurgitation Anxiety History of tobacco use Erectile dysfunction Spinal stenosis, cervical region LLQ abdominal pain Myelopathy Surgical History Repair of inguinal hernia bilateral Colonoscopy - [facility] (09/02/17) Social History Smoking/Tobacco Use Status: Former Tobacco Use Quit Date: 08/31/78 Tobacco: How many years used: 20 Smoking risk assessment performed?: Yes Alcohol Intake: current Alcohol Intake frequency: 0-2 drinks per day Alcohol type: hard liquor Drug use: Never Substance use type: does not use Housing: house What is your relationship status?: Panel score (0-1 are the most socially isolated patients): 1 What type of physical activity do you participate in: other Details: stationary cycle Duration: 15-30 minutes/day Frequency: daily Do you feel safe at home: Yes Do you feel safe in your relationship?: Yes PAWSS Have you Been Recently Intoxicated or Drunk Within the Last 30 days?: Unable to Obtain Have you Ever Experienced Previous Episodes of Alcohol Withdrawal?: Unable to Obtain Have you ever Experienced Withdrawal Seizures?: Unable to Obtain Have you ever Experienced Delirium Tremens(DT)s?: Unable to Obtain Have you ever undergone Alcohol Rehabilitation Treatment (i.e, inpt ot outpatient treatment programs)?: Unable to Obtain Have you ever Experienced Blackouts?: Unable to Obtain Have you ever Combined Alcohol with other Downers within the last 90 days?: Unable to Obtain Have you ever Combined Alcohol with any other Substance of Abuse during the last 90 days?: Unable to Obtain Positive Blood Alcohol level on Presentation? [PCS.BAL]: Unable to Obtain Evidence of Increased Autonomic Activity (i.e. HR>120, tremor, sweating, agitation, nausea)?: Unable to Obtain
--- NOTE | 2024-08-14 01:05 | DI.VRAD_ITS ---
PROCEDURE INFORMATION: Exam: CTA Head Without And With Contrast, Arteriography Exam date and time: 08/14/2024 12:11 AM Age: 84 years old Clinical indication: Other: Aphasia, no movement ble TECHNIQUE: Imaging protocol: Computed tomographic angiography of the head without and with contrast. Exam focused on the arteries. 3D rendering (Not supervised by radiologist): MIP and/or 3D reconstructed images were created by the technologist. Contrast material: OMNIPAQUE 350; Contrast volume: 70 ml; Contrast route: INTRAVENOUS (IV); Other technique: STROKE PROTOCOL was implemented. COMPARISON: CT HEAD CERVICAL SPINE WO 05/17/2023 11:04 AM FINDINGS: ANTERIOR CIRCULATION: Right internal carotid artery: Intracranial segment is patent with no significant stenosis or occlusion. No aneurysm. Right middle cerebral artery: No occlusion or significant stenosis. No aneurysm. Right anterior cerebral artery: No occlusion or significant stenosis. No aneurysm. Left internal carotid artery: Intracranial segment is patent with no significant stenosis. No aneurysm. Left middle cerebral artery: No occlusion or significant stenosis. No aneurysm. Left anterior cerebral artery: No occlusion or significant stenosis. No aneurysm. POSTERIOR CIRCULATION: Right vertebral artery: No occlusion or significant stenosis. No aneurysm. Left vertebral artery: No occlusion or significant stenosis. No aneurysm. Basilar artery: No occlusion or significant stenosis. No aneurysm. Right posterior cerebral artery: No occlusion or significant stenosis. No aneurysm. Left posterior cerebral artery: No occlusion or significant stenosis. No aneurysm. HEAD: Brain: Volume loss and chronic small vessel ischemic change. No brain edema. No intracranial hemorrhage. Cerebral ventricles: Normal. No ventriculomegaly. Bones: Unremarkable. No acute fracture. Paranasal sinuses: Visualized sinuses are normal. No fluid levels. Mastoid air cells: Visualized mastoids are normal. No mastoid effusion. Soft tissues: Unremarkable. IMPRESSION: 1. No acute brain findings. 2. No acute vascular findings. PROCEDURE INFORMATION: Exam: CTA Neck Without And With Contrast Exam date and time: 08/14/2024 12:11 AM Age: 84 years old Clinical indication: Other: Aphasia, no movement ble TECHNIQUE: Imaging protocol: Computed tomographic angiography of the neck without and with contrast. Exam focused on the cervical segments of the vasculature. 3D rendering (Not supervised by radiologist): MIP and/or 3D reconstructed images were created by the technologist. Contrast material: OMNIPAQUE 350; Contrast volume: 70 ml; Contrast route: INTRAVENOUS (IV); COMPARISON: CT HEAD CERVICAL SPINE WO 05/17/2023 11:04 AM FINDINGS: Right common carotid artery: Atherosclerosis of the right carotid bulb and proximal right internal carotid artery without significant luminal narrowing. No thrombosis or occlusion. Right internal carotid artery: See Right common carotid artery finding. Right external carotid artery: No occlusion or stenosis of the origin. Left common carotid artery: Atherosclerosis of the left carotid bulb and proximal left internal carotid artery without significant luminal narrowing. No thrombosis or occlusion. Left internal carotid artery: See Left common carotid artery finding. Left external carotid artery: No occlusion or stenosis of the origin. Right vertebral artery: No stenosis. No dissection or occlusion. Left vertebral artery: No stenosis. No dissection or occlusion. Soft tissues: Normal. No significant soft tissue swelling. Bones/joints: No acute fracture. Lungs: Smooth interlobular septal thickening compatible with hydrostatic interstitial pulmonary edema/CHF. Peripheral scarring versus atelectasis in the right lung. IMPRESSION: 1. Hydrostatic interstitial pulmonary edema/CHF. 2. No acute vascular findings. REFERENCES: NASCET CRITERIA. The degree of stenosis in the cervical segment of the internal carotid artery is based on NASCET criteria. Normal is no stenosis. Mild is less than 50% stenosis. Moderate is 50-69% stenosis. Severe is 70% to 99% stenosis. Total occlusion is no detectable patent lumen. Dictated and Authenticated by: Ravinder Matson MD. Ordering:KATIE Thomason MD
[2024-08-14 01:22] LABS: Bilirubin Negative (Negative); Blood Trace-intact (Negative); Clarity Clear (Clear); Glucose Negative (Negative); Ketones Negative (Negative); Leukocyte Esterase Negative (Negative); Nitrite Negative (Negative); Specific Gravity 1.025 (1.005-1.025)
[2024-08-14 01:25] LABS: Troponin I 37 ng/L (<or=76)
[2024-08-14 01:29] LABS: Bacteria Rare HPF (Negative); C & S Indicated? No; Casts Negative LPF (Negative); Crystals Negative HPF (Negative); Epithelial Cells Rare HPF (Negative); Mucus Negative (Negative); WBC Negative HPF (0-5)
--- NOTE | 2024-08-14 02:48 | W.PM.HP.N ---
Date of service: 08/14/24 Time of Service: 02:48 Assessment and Plan Assessment and plan (1) Cerebrovascular accident (CVA): Start date: 08/14/24 Start time: 03:03 Status: Acute Assessment and plan: The patient is brought in by his who was in his baseline normal neurological status until 6:30pm when he began to exhibit dysarthria and altered mental status with confusion. His symptoms have continued to persist without any improvement. In the ER he is unable to give any history. He is only repeating his name but can move his bilateral upper and right lower extremity. His notes that his LLE is chronically weak due to a history of spinal stenosis. He does not have any facial asymmetry. His symptoms w/ his age and history of HTN and HLD is concerning for a cerebrovascular event vs TIA. His Head/Neck CTA does not show any significant infarct or narrowing the internal carotid. At this time the plan is to continue w/ antiplatelet tx, risk factor modifications and allow for permissive hypertension x24 hours. Obtain MRI, Echo and continuous telemetry. -Obtain Lipid, Echo and MRI -Do speech swallowing test -Start ASA 81mg daily -Cont w/ Eliquis 5mg daily -Cont w/ Crestor 20mg daily (2) HTN (hypertension): Assessment and plan: -Allow for permissive HTN due to acute CVA vs TIA x24 hours (3) Hyperlipidemia: Assessment and plan: -Obtain lipid panel -Cont w/ Crestor 20mg daily History of Present Illness History of Present Illness Chief Complaint: Altered Mental Status Narrative: The patient is a 84 y/o C M w/ PMH atrial flutter on Eliquis and spinal stenosis w/ baseline left lower extremity weakness who presents to the ED today due to acute changes to his mental status. The patient is unable to give any history at this time and is only repeating his name. The history is from his Ximena. He was at his normal baseline neurological status earlier this evening until 6:30 pm when he suddenly began to exhibit dysarthria. She did not report of any facial asymmetry or new upper or lower extremity neurological deficits. She did note a worsening generalized weakness. His dysarthria and mental status/confusion has not improved which prompted her to bring him to the ER. On exam he is not in any respiratory distress and is able to move his bilateral upper and right lower extremities. He does not follow any commands. Review of Systems Narrative: A full ROS was not able to obtained as the patient cannot follow commands and is only repeating his name PFSH All Active Problems (Updated 08/14/24 @ 03:03 by Donald De Anda MD) Cerebrovascular accident (CVA) (Acute) Prediabetes (Acute) Essential hypertension (Acute) Nicotine dependence (Acute) Atherosclerosis of coronary artery without angina pectoris (Acute) Rosacea (Acute) Diaphragmatic hernia (Acute) Left foot drop (Acute) BPH (benign prostatic hyperplasia) (Chronic) Abdominal pain (Acute) Splenomegaly (Acute) Aortic ectasia, thoracic (Acute) Chronic myelopathy (Acute) Vitamin B12 deficiency (Acute) Aneurysm of infrarenal abdominal aorta (Acute) Thrombocytopenic disorder (Acute) Macular degeneration (Acute) Vitamin D deficiency (Acute) Coronary artery disease (Chronic) Generalized muscle weakness (Acute) Acute UTI (Acute) Multiple falls (Acute) Anticoagulated (Acute) Atrial flutter (Acute) Medical History Left-sided epistaxis Aortic insufficiency Ascending aorta dilation Seborrheic keratoses Neoplasm of unspecified behavior of bone, soft tissue, and skin Spinal stenosis, lumbar region, with neurogenic claudication Cholelithiasis Hiatal hernia HTN (hypertension) Splenic lesion GERD (gastroesophageal reflux disease) BPH w/o urinary obs/LUTS Impaired fasting glucose Anxiety about health Hyperlipidemia Aortic valve regurgitation Anxiety History of tobacco use Erectile dysfunction Spinal stenosis, cervical region LLQ abdominal pain Myelopathy Surgical History Repair of inguinal hernia bilateral Colonoscopy - MAC (09/02/17) Social History Smoking/Tobacco Use Status: Former Tobacco Use Quit Date: 08/31/78 Tobacco: How many years used: 20 Smoking risk assessment performed?: Yes Alcohol Intake: current Alcohol Intake frequency: 0-2 drinks per day Alcohol type: hard liquor Drug use: Never Substance use type: does not use Housing: house What is your relationship status?: Panel score (0-1 are the most socially isolated patients): 1 What type of physical activity do you participate in: other Details: stationary cycle Duration: 15-30 minutes/day Frequency: daily Do you feel safe at home: Yes Do you feel safe in your relationship?: Yes Meds Allergies and Home Medications Allergies Allergy/AdvReac Type Severity Reaction Status Date / Time No Known Allergies Allergy Verified 08/14/24 00:33 Home Medications ?Medication ?Instructions ?Recorded ?Confirmed ?Type cholecalciferol (vitamin D3) 50 1 cap PO DAILY 09/15/14 08/14/24 History mcg (2,000 unit) capsule (Vitamin D3) lisinopril 10 mg tablet 10 mg PO DAILY 09/15/14 08/14/24 History omeprazole 20 mg capsule,delayed 20 mg PO DAILY 09/15/14 08/14/24 History release sertraline 100 mg tablet 50 mg PO DAILY 09/15/14 08/14/24 History rosuvastatin 20 mg tablet (Crestor) 20 mg PO HS 08/28/17 08/14/24 History baclofen 20 mg tablet 20 mg PO DAILY 05/13/21 08/14/24 History mirtazapine 7.5 mg tablet 7.5 mg PO DAILY 05/13/21 08/14/24 History tamsulosin 0.4 mg capsule 0.8 mg PO HS #90 tab-caps 11/17/22 08/14/24 History apixaban 5 mg tablet (Eliquis) 5 mg PO BID #180 tabs 11/06/23 08/14/24 Rx cyanocobalamin (vitamin B-12) 1,000 mcg PO DAILY 08/02/24 08/14/24 History 1,000 mcg capsule Exam Const General: comfortable, no acute distress and not combative Nutritional Appearance: average body habitus Orientation: alert, awake and not oriented x3 Limitations: altered mental status [facility] Head: normal to inspection Ears: hearing grossly normal bilaterally and external ears normal General nose exam: external nose normal and nares normal Face and sinus: normal facial exam Eyes General: appearance normal, both eyes and all related structures Periorbital: periorbital findings normal Eyelids: eyelids normal Conjunctivae: conjunctivae normal Sclera: sclerae normal Pupils: PERRL Neck Neck: normal visual inspection, trachea midline and no anterior neck swelling Chest Chest: normal inspection of the chest Resp Effort & Inspection: normal respiratory effort Auscultation: clear to auscultation bilaterally Cardio Rate: regular rate Rhythm: regular rhythm Heart Sounds: S1 normal and S2 normal GI Inspection: normal to inspection Palpation: soft Percussion: normal to percussion Auscultation: normal bowel sounds Skin General skin exam: no rashes or lesions noted, elasticity normal and turgor normal Neuro General: patient alert and patient awake Other: He is able to move his bilateral upper extremities He is able to move his right lower extremity He is unable to move his left lower extremity but this has been a chronic issue due to spinal stenosis Results Labs 08/14/24 00:01 08/14/24 00:01 Labs: Laboratory Results - last 24 hr 08/14/24 08/14/24 08/14/24 00:01 00:01 00:01 WBC 6.80 RBC 4.34 L Hgb 12.6 L Hct 38.7 L MCV 89 MCH 29.0 MCHC 32.6 RDW 14.2 H Plt Count 120 L MPV 9.5 Immature Gran % 0.7 Neutrophils % 86.7 Lymphocytes % 5.0 Monocytes % 6.5 Eosinophils % 0.7 Basophils % 0.4 Nucleated RBC % 0.0 Absolute Neutrophils 5.89 Absolute Lymphocytes 0.34 L Absolute Monocytes 0.44 Absolute Eosinophils 0.05 Absolute Basophils 0.03 PT Cancelled 12.7 H INR Cancelled 1.3 H APTT 28.6 Sodium 144 Potassium 4.1 Chloride 108 H Carbon Dioxide 28.4 Anion Gap 7.6 BUN 21 H Creatinine 1.1 Est GFR (CKD-EPI 2020) 66.19 Glucose 152 H Calcium 8.5 Magnesium 2.0 Total Bilirubin 0.48 AST 18 ALT 14 L Alkaline Phosphatase 114 Troponin I 34 Total Protein 7.3 Albumin 3.6 Urine Color Urine Clarity Urine pH Ur Specific [place] Urine Protein Urine Ketones Urine Blood Urine Nitrite Urine Bilirubin Urine Urobilinogen Ur Leukocyte Esterase Urine RBC Urine WBC Ur Epithelial Cells Urine Crystals Urine Bacteria Urine Casts Urine Mucus Ur Culture Indicated? Urine Glucose 08/14/24 08/14/24 00:16 01:04 WBC RBC Hgb Hct MCV MCH MCHC RDW Plt Count MPV Immature Gran % Neutrophils % Lymphocytes % Monocytes % Eosinophils % Basophils % Nucleated RBC % Absolute Neutrophils Absolute Lymphocytes Absolute Monocytes Absolute Eosinophils Absolute Basophils PT INR APTT Sodium Potassium Chloride Carbon Dioxide Anion Gap BUN Creatinine Est GFR (CKD-EPI 2020) Glucose Calcium Magnesium Total Bilirubin AST ALT Alkaline Phosphatase Troponin I 37 Total Protein Albumin Urine Color Yellow Urine Clarity Clear Urine pH 7.0 Ur Specific [place] 1.025 Urine Protein Trace Urine Ketones Negative Urine Blood Trace-intact H Urine Nitrite Negative Urine Bilirubin Negative Urine Urobilinogen 1.0 H Ur Leukocyte Esterase Negative Urine RBC 5-10 H Urine WBC Negative Ur Epithelial Cells Rare Urine Crystals Negative Urine Bacteria Rare Urine Casts Negative Urine Mucus Negative Ur Culture Indicated? No Urine Glucose Negative Last Vital Signs Temp 36.4 C 08/14/24 00:10 Pulse 58 L 08/14/24 01:46 Resp 19 08/14/24 01:50 BP 180/53 H 08/14/24 01:46 Pulse Ox 100 08/14/24 01:50 PAWSS Have you Been Recently Intoxicated or Drunk Within the Last 30 days?: Unable to Obtain Have you Ever Experienced Previous Episodes of Alcohol Withdrawal?: Unable to Obtain Have you ever Experienced Withdrawal Seizures?: Unable to Obtain Have you ever Experienced Delirium Tremens(DT)s?: Unable to Obtain Have you ever undergone Alcohol Rehabilitation Treatment (i.e, inpt ot outpatient treatment programs)?: Unable to Obtain Have you ever Experienced Blackouts?: Unable to Obtain Have you ever Combined Alcohol with other Downers within the last 90 days?: Unable to Obtain Have you ever Combined Alcohol with any other Substance of Abuse during the last 90 days?: Unable to Obtain Positive Blood Alcohol level on Presentation? [PCS.BAL]: Unable to Obtain Evidence of Increased Autonomic Activity (i.e. HR>120, tremor, sweating, agitation, nausea)?: Unable to Obtain Time Spent Time spent with Patient: 40-54 minutes Time was spent: preparing to see the patient(eg.review tests), obtaining and/or reviewing separately otained hiistory, ordering medications,tests, procedures, referring, communicating with other health care partner, indepentently interpreting results and counseling the patient
[2024-08-14 03:53] LABS: Troponin I 49 ng/L (<or=76)
--- NOTE | 2024-08-14 04:01 | W.PC.ACHO ---
Registration Status: Primary Language: Preferred Language: ED Information & Data Chief Complaint CVA/TIA 08/14/24 00:58 Triage Note BIBA from home, per the 08/14/24 00:10 pt was not feeling well over the past few days and have noticed a decline in mental status. tonight after dinner she noticed he was weak and was not able to speak other than garbled speech unknown time of dinner. Pts attempting to give the MD as much info as possible. finger stick 172 Subjective Pt unable to answer 08/14/24 00:27 questions, garbled speech, unable to follow directions. Medical / Surgical History (Last Reviewed 06/16/23 @ 14:30 by Carol Garcia MD) Left-sided epistaxis Aortic insufficiency Ascending aorta dilation Seborrheic keratoses Neoplasm of unspecified behavior of bone, soft tissue, and skin Spinal stenosis, lumbar region, with neurogenic claudication Cholelithiasis Hiatal hernia HTN (hypertension) Splenic lesion GERD (gastroesophageal reflux disease) BPH w/o urinary obs/LUTS Impaired fasting glucose Anxiety about health Hyperlipidemia Aortic valve regurgitation Anxiety History of tobacco use Erectile dysfunction Spinal stenosis, cervical region LLQ abdominal pain Myelopathy (Last Reviewed 06/16/23 @ 14:30 by Carol Garcia MD) Repair of inguinal hernia Colonoscopy - MAC (09/02/17) Most Recent Vital Signs Temperature 36.4 C 08/14/24 00:10 Temperature Source Temporal Artery Scan 08/14/24 00:10 Pulse 63 08/14/24 03:31 Pulse 57 L 08/14/24 03:40 Respiratory Rate 13 08/14/24 03:40 Respiratory Effort Normal, Non-Labored 08/14/24 00:27 Respiratory Depth Normal 08/14/24 00:27 Respiratory Pattern Normal 08/14/24 00:27 Blood Pressure 162/60 H 08/14/24 03:31 Blood Pressure Mean 92 08/14/24 03:31 Blood Pressure Position Sitting 08/14/24 00:10 Pulse Oximetry 98 08/14/24 03:40 Oxygen Delivery Method Room Air 08/14/24 00:10 Oxygen Flow Rate 0 08/14/24 00:10 Pain Level 0 08/14/24 00:10 Allergies No Known Allergies Allergy (Verified 08/14/24 00:33) Precautions Isolation Standard precaution 12/15/24 00:27 Active Medications Generic Name Dose Route Start Last Admin Trade Name Esvin PRN Reason Stop Dose Admin Iohexol 70 ml 08/14/24 00:30 08/14/24 00:28 Omnipaque 350 Mg/Ml 100 Ml Btl IJ 09/13/24 23:59 70 ml DIRECTED EMIR Administration Sodium Chloride 50 ml 08/14/24 00:30 08/14/24 00:28 Normal Saline - Diluent 50 Ml Vial IJ 50 ml .FOR DI USE EMIR Administration IV IV Catheter Type [Left Peripheral IV Antecubital] IV Catheter Type [Right Peripheral IV Antecubital] IV Catheter Gauge [Left 20 Antecubital] IV Catheter Gauge [Right 18 Antecubital] Diet Orders Category Date Time Status Nothing Per Oral [DIET] Nutrition 08/14/24 Breakfast Active Diagnostics 08/14/24 08/14/24 08/14/24 Range/Units 06:11 04:11 03:20 WBC (4.4-10.8) 10^3/uL RBC (4.36-5.78) 10^6/uL Hgb (13.5-17.5) g/dL Hct (40.0-50.0) % MCV (80-95) fL MCH (27.0-33.0) pg MCHC (32.0-36.0) % RDW (11.8-14.1) % Plt Count (130-400) 10^3/uL MPV (8.0-11.0) fL Immature Gran % % Neutrophils % % Lymphocytes % % Monocytes % % Eosinophils % % Basophils % % Nucleated RBC % (0.0-0.3) % Absolute Neutrophils (1.2-6.7) 10^3/uL Absolute Lymphocytes (1.2-3.4) 10^3/uL Absolute Monocytes (0.1-0.8) 10^3/uL Absolute Eosinophils (0.0-0.7) 10^3/uL Absolute Basophils (0.0-0.2) 10^3/uL PT INR APTT (23.6-32.8) sec Sodium (136-145) mmol/L Potassium (3.5-5.1) mmol/L Chloride (98-107) mmol/L Carbon Dioxide (21.0-32.0) mmol/L Anion Gap (3-11) mmol/L BUN (7-18) mg/dL Creatinine (0.70-1.30) mg/dL Est GFR (CKD-EPI 2020) (mL/min/1.73m2) Glucose (74-106) mg/dL Calcium (8.5-10.1) mg/dL Magnesium (1.8-2.4) mg/dL Total Bilirubin (0.2-1.0) mg/dL AST (15-37) U/L ALT (16-63) U/L Alkaline Phosphatase (46-116) U/L Troponin I Pending Pending 49 (<or=76) ng/L Total Protein (6.4-8.2) g/dL Albumin (3.4-5.0) g/dL Triglycerides Total Cholesterol LDL Cholesterol, Calc HDL Cholesterol Urine Color (Yellow) Urine Clarity (Clear) Urine pH (5-8) Ur Specific [place] (1.005-1.025) Urine Protein (Neg-Trace) mg/dL Urine Ketones (Negative) mg/dL Urine Blood (Negative) Urine Nitrite (Negative) Urine Bilirubin (Negative) Urine Urobilinogen (Up to 0.2) mg/dL Ur Leukocyte Esterase (Negative) Urine RBC (0-2) HPF Urine WBC (0-5) HPF Ur Epithelial Cells (Negative) HPF Urine Crystals (Negative) HPF Urine Bacteria (Negative) HPF Urine Casts (Negative) LPF Urine Mucus (Negative) Ur Culture Indicated? Urine Glucose (Negative) mg/dL 08/14/24 08/14/24 08/14/24 Range/Units 03:11 01:04 00:16 WBC (4.4-10.8) 10^3/uL RBC (4.36-5.78) 10^6/uL Hgb (13.5-17.5) g/dL Hct (40.0-50.0) % MCV (80-95) fL MCH (27.0-33.0) pg MCHC (32.0-36.0) % RDW (11.8-14.1) % Plt Count (130-400) 10^3/uL MPV (8.0-11.0) fL Immature Gran % % Neutrophils % % Lymphocytes % % Monocytes % % Eosinophils % % Basophils % % Nucleated RBC % (0.0-0.3) % Absolute Neutrophils (1.2-6.7) 10^3/uL Absolute Lymphocytes (1.2-3.4) 10^3/uL Absolute Monocytes (0.1-0.8) 10^3/uL Absolute Eosinophils (0.0-0.7) 10^3/uL Absolute Basophils (0.0-0.2) 10^3/uL PT INR APTT (23.6-32.8) sec Sodium Pending (136-145) mmol/L Potassium Pending (3.5-5.1) mmol/L Chloride Pending (98-107) mmol/L Carbon Dioxide Pending (21.0-32.0) mmol/L Anion Gap Pending (3-11) mmol/L BUN Pending (7-18) mg/dL Creatinine Pending (0.70-1.30) mg/dL Est GFR (CKD-EPI 2020) Pending (mL/min/1.73m2) Glucose Pending (74-106) mg/dL Calcium Pending (8.5-10.1) mg/dL Magnesium (1.8-2.4) mg/dL Total Bilirubin Pending (0.2-1.0) mg/dL AST Pending (15-37) U/L ALT Pending (16-63) U/L Alkaline Phosphatase Pending (46-116) U/L Troponin I Pending 37 (<or=76) ng/L Total Protein Pending (6.4-8.2) g/dL Albumin Pending (3.4-5.0) g/dL Triglycerides Pending Total Cholesterol Pending LDL Cholesterol, Calc Pending HDL Cholesterol Pending Urine Color Yellow (Yellow) Urine Clarity Clear (Clear) Urine pH 7.0 (5-8) Ur Specific [place] 1.025 (1.005-1.025) Urine Protein Trace (Neg-Trace) mg/dL Urine Ketones Negative (Negative) mg/dL Urine Blood Trace-intact H (Negative) Urine Nitrite Negative (Negative) Urine Bilirubin Negative (Negative) Urine Urobilinogen 1.0 H (Up to 0.2) mg/dL Ur Leukocyte Esterase Negative (Negative) Urine RBC 5-10 H (0-2) HPF Urine WBC Negative (0-5) HPF Ur Epithelial Cells Rare (Negative) HPF Urine Crystals Negative (Negative) HPF Urine Bacteria Rare (Negative) HPF Urine Casts Negative (Negative) LPF Urine Mucus Negative (Negative) Ur Culture Indicated? No Urine Glucose Negative (Negative) mg/dL 08/14/24 08/14/24 08/14/24 Range/Units 00:01 00:01 00:01 WBC 6.80 (4.4-10.8) 10^3/uL RBC 4.34 L (4.36-5.78) 10^6/uL Hgb 12.6 L (13.5-17.5) g/dL Hct 38.7 L (40.0-50.0) % MCV 89 (80-95) fL MCH 29.0 (27.0-33.0) pg MCHC 32.6 (32.0-36.0) % RDW 14.2 H (11.8-14.1) % Plt Count 120 L (130-400) 10^3/uL MPV 9.5 (8.0-11.0) fL Immature Gran % 0.7 % Neutrophils % 86.7 % Lymphocytes % 5.0 % Monocytes % 6.5 % Eosinophils % 0.7 % Basophils % 0.4 % Nucleated RBC % 0.0 (0.0-0.3) % Absolute Neutrophils 5.89 (1.2-6.7) 10^3/uL Absolute Lymphocytes 0.34 L (1.2-3.4) 10^3/uL Absolute Monocytes 0.44 (0.1-0.8) 10^3/uL Absolute Eosinophils 0.05 (0.0-0.7) 10^3/uL Absolute Basophils 0.03 (0.0-0.2) 10^3/uL PT 12.7 H Cancelled INR 1.3 H Cancelled APTT 28.6 (23.6-32.8) sec Sodium 144 (136-145) mmol/L Potassium 4.1 (3.5-5.1) mmol/L Chloride 108 H (98-107) mmol/L Carbon Dioxide 28.4 (21.0-32.0) mmol/L Anion Gap 7.6 (3-11) mmol/L BUN 21 H (7-18) mg/dL Creatinine 1.1 (0.70-1.30) mg/dL Est GFR (CKD-EPI 2020) 66.19 (mL/min/1.73m2) Glucose 152 H (74-106) mg/dL Calcium 8.5 (8.5-10.1) mg/dL Magnesium 2.0 (1.8-2.4) mg/dL Total Bilirubin 0.48 (0.2-1.0) mg/dL AST 18 (15-37) U/L ALT 14 L (16-63) U/L Alkaline Phosphatase 114 (46-116) U/L Troponin I 34 (<or=76) ng/L Total Protein 7.3 (6.4-8.2) g/dL Albumin 3.6 (3.4-5.0) g/dL Triglycerides Total Cholesterol LDL Cholesterol, Calc HDL Cholesterol Urine Color (Yellow) Urine Clarity (Clear) Urine pH (5-8) Ur Specific [place] (1.005-1.025) Urine Protein (Neg-Trace) mg/dL Urine Ketones (Negative) mg/dL Urine Blood (Negative) Urine Nitrite (Negative) Urine Bilirubin (Negative) Urine Urobilinogen (Up to 0.2) mg/dL Ur Leukocyte Esterase (Negative) Urine RBC (0-2) HPF Urine WBC (0-5) HPF Ur Epithelial Cells (Negative) HPF Urine Crystals (Negative) HPF Urine Bacteria (Negative) HPF Urine Casts (Negative) LPF Urine Mucus (Negative) Ur Culture Indicated? Urine Glucose (Negative) mg/dL Intake and Output - 24 Hour Total 08/13/24 23:54 thru 08/14/24 00:27 Intake Total 20 Balance 20 Weight 73.2 kg Intake: IV 20 Falls Risk Assessment History of Falls Previous History 08/14/24 00:27 Ambulatory Aids Uses ambulatory device + 08/14/24 00:27 Tubes/Lines With any additional score 08/14/24 00:27 Gait Evaluation W/any additional score 08/14/24 00:27 Cognition Cognitive impairment 08/14/24 00:27 Fall Total Score 100 08/14/24 00:27 Level of Risk Maximum Risk 08/14/24 00:27 Problems (Last Reviewed 06/16/23 @ 14:30 by Carol Garcia MD) Cerebrovascular accident (CVA) (Acute) v v v v v v v v v Sending and/or Receiving Nurses: Please use comment section below to note any information pertinent to the patient hand-off not included above. Information / Comments: Last known normal last night, found by speaking jibberish, w/ new weakness. EMS brought him in found him to have stroke. Non reactive to pain initially resumed in upper extremities. 18g in R AC, 20g L AC. Confusion noted over last month by family this was a mason change. Spinal stenosis at baseline L leg weakness now all over weakness improving since came in. VSS 155/56, HR 62, 98% on 2L, 16 resps. Report received from: navid Moore at [id number]
[2024-08-14 05:24] LABS: ALT 11 U/L (16-63); AST 18 U/L (15-37); Albumin 3.3 g/dL (3.4-5.0); Alkaline Phosphatase 108 U/L (46-116); Anion Gap 4.4 mmol/L (3-11); BUN 19 mg/dL (7-18); CO2 28.6 mmol/L (21.0-32.0); Calcium 8.4 mg/dL (8.5-10.1); Calculated LDL 36 mg/dL (<100); Chloride 106 mmol/L (98-107); Cholesterol 112 mg/dL (<200); Estimated GFR 74.21 (mL/min/1.73m2); Glucose 138 mg/dL (74-106); HDL Cholesterol 70 mg/dL (40-60); Potassium 4.3 mmol/L (3.5-5.1); Sodium 139 mmol/L (136-145); Total Protein 6.8 g/dL (6.4-8.2); Triglyceride 33 mg/dL (<150); Troponin I 52 ng/L (<or=76)
[2024-08-14 07:04] LABS: Troponin I 63 ng/L (<or=76)
[2024-08-14 08:49] LABS: Troponin I 54 ng/L (<or=76)
[2024-08-14] MEDS: Apixaban 5 MG TAB PO ×2 (09:27→19:52)
[2024-08-14] MEDS: Sertraline 50 MG TAB PO (09:27)
[2024-08-14] MEDS: Normal Saline Flush 10 ML SYR IVP ×2 (09:27→19:52)
--- NOTE | 2024-08-14 11:30 | PDOC.CMIN ---
Date of service: 08/14/24 Time of Service: 11:30 Care Management Initial Assmt Advance Directives Advance Directives: Do you have an Advance Directive: Y 10/03/19 13:15 AD On File at [facility]: Y 02/12/21 10:20 Date Asked 08/14/24 08/14/24 10:26 AD Date Reviewed 05/20/24 07/30/24 20:17 COLST On File at [facility] COLST Date Scanned Code Status Resuscitation Status DNR/DNI Care Team Visit Care Team Role Provider Type Patience Alvarez MD Primary Care Provider [facility] STAFF PHYSICIAN Melanie Mendez, HAZARDOUS [employer] TANKER DRIVER Other Providers SPEECH LANGUAGE PATHOLOGIST Eduardo Paz, HAZARDOUS MATERIALS TANKER DRIVER Other Providers SPEECH LANGUAGE PATHOLOGIST Rhianna Gill Other Providers SPEECH LANGUAGE PATHOLOGIST Yolanda Menon, HAZARDOUS MATERIALS TANKER DRIVER Other Providers SPEECH LANGUAGE PATHOLOGIST Jud Tatum, HAZARDOUS MATERIALS TANKER DRIVER Other Providers SPEECH LANGUAGE PATHOLOGIST Terrance Feng Other Providers OTHER Katelin Hardin MD Emergency Provider [facility] STAFF PHYSICIAN Donald De Anda MD Admit Provider [facility] STAFF PHYSICIAN Attending Provider [facility] All Active Problems (Updated 08/14/24 @ 06:46 by Katelin Hardin MD) Stroke (Chronic) Cerebrovascular accident (CVA) (Acute) Prediabetes (Acute) Essential hypertension (Acute) Nicotine dependence (Acute) Atherosclerosis of coronary artery without angina pectoris (Acute) Rosacea (Acute) Diaphragmatic hernia (Acute) Left foot drop (Acute) BPH (benign prostatic hyperplasia) (Chronic) Abdominal pain (Acute) Splenomegaly (Acute) Aortic ectasia, thoracic (Acute) Chronic myelopathy (Acute) Vitamin B12 deficiency (Acute) Aneurysm of infrarenal abdominal aorta (Acute) Thrombocytopenic disorder (Acute) Macular degeneration (Acute) Vitamin D deficiency (Acute) Coronary artery disease (Chronic) Generalized muscle weakness (Acute) Acute UTI (Acute) Multiple falls (Acute) Anticoagulated (Acute) Atrial flutter (Acute) Medical History Left-sided epistaxis Aortic insufficiency Ascending aorta dilation Seborrheic keratoses Neoplasm of unspecified behavior of bone, soft tissue, and skin Spinal stenosis, lumbar region, with neurogenic claudication Cholelithiasis Hiatal hernia HTN (hypertension) Splenic lesion GERD (gastroesophageal reflux disease) BPH w/o urinary obs/LUTS Impaired fasting glucose Anxiety about health Hyperlipidemia Aortic valve regurgitation Anxiety History of tobacco use Erectile dysfunction Spinal stenosis, cervical region LLQ abdominal pain Myelopathy Surgical History Repair of inguinal hernia bilateral Colonoscopy - MAC (09/02/17) Social History Smoking/Tobacco Use Status: Former Tobacco Use Quit Date: 08/31/78 Tobacco: How many years used: 20 Smoking risk assessment performed?: Yes Alcohol Intake: current Alcohol Intake frequency: 0-2 drinks per day Alcohol type: hard liquor Drug use: Never Substance use type: does not use Housing: house What is your relationship status?: Panel score (0-1 are the most socially isolated patients): 1 What type of physical activity do you participate in: other Details: stationary cycle Duration: 15-30 minutes/day Frequency: daily Do you feel safe at home: Yes Do you feel safe in your relationship?: Yes SDOH(Care Management) Screening Will the Patient Participate in the Screening?: Unable to obtain Do you worry about having a steady place to live?: no In the past 12 months, have you had to go without electric, gas, oil or water in your home?: no Have you or anyone in your house had to go without enough food to eat?: no Has lack of transportation kept you from medical appointments or from doing things needed for daily living?: no Has anyone in your support network made you feel unsafe for any reason?: no Social Determinants of Health Comments(SDOH Details): Obtained by , pt unable to answer at this time
--- NOTE | 2024-08-14 13:19 | PT.INIE ---
Date of service: 08/14/24 Time of Service: 13:01 PT Notes Visit Reasons: Cerebrovascular accident Inpatient Physical Therapy Evaluation I certify the need for these services as being medically necessary and skilled as furnished under this plan of treatment while under my care. Please sign and return within 14 days if you agree with the plan of care listed below.? Thank you for this referral! ? Referring Physician? Date Referring Doctor:? Donald De Anda PT Orders: PT CONSULT for CVA, mobility Precautions: fall risk, aphasia Patient Profile/Admitting Diagnosis:? The patient is an 84 yo male adm on 08/13/24 for a CVA. He was brought in by his who was in his baseline normal neurological status until 6:30pm when he began to exhibit dysarthria and altered mental status with confusion. His symptoms have continued to persist without any improvement. In the ER he is unable to give any history. He is only repeating his name but can move his bilateral upper and right lower extremity. His notes that his LLE is chronically weak due to a history of spinal stenosis. He does not have any facial asymmetry. His symptoms w/ his age and history of HTN and HLD is concerning for a cerebrovascular event vs TIA. His Head/Neck CTA does not show any significant infarct or narrowing the internal carotid. At this time the plan is to continue w/ antiplatelet tx, risk factor modifications and allow for permissive hypertension x24 hours. Obtain MRI, Echo and continuous telemetry. Past Medical History: All Active Problems (Updated 08/14/24 @ 03:03 by Donald De Anda MD) Cerebrovascular accident (CVA) (Acute) Prediabetes (Acute) Essential hypertension (Acute) Nicotine dependence (Acute) Atherosclerosis of coronary artery without angina pectoris (Acute) Rosacea (Acute) Diaphragmatic hernia (Acute) Left foot drop (Acute) BPH (benign prostatic hyperplasia) (Chronic) Abdominal pain (Acute) Splenomegaly (Acute) Aortic ectasia, thoracic (Acute) Chronic myelopathy (Acute) Vitamin B12 deficiency (Acute) Aneurysm of infrarenal abdominal aorta (Acute) Thrombocytopenic disorder (Acute) Macular degeneration (Acute) Vitamin D deficiency (Acute) Coronary artery disease (Chronic) Generalized muscle weakness (Acute) Acute UTI (Acute) Multiple falls (Acute) Anticoagulated (Acute) Atrial flutter (Acute) Medical History Left-sided epistaxis Aortic insufficiency Ascending aorta dilation Seborrheic keratoses Neoplasm of unspecified behavior of bone, soft tissue, and skin Spinal stenosis, lumbar region, with neurogenic claudication Cholelithiasis Hiatal hernia HTN (hypertension) Splenic lesion GERD (gastroesophageal reflux disease) BPH w/o urinary obs/LUTS Impaired fasting glucose Anxiety about health Hyperlipidemia Aortic valve regurgitation Anxiety History of tobacco use Erectile dysfunction Spinal stenosis, cervical region LLQ abdominal pain Myelopathy Surgical History Repair of inguinal hernia bilateralColonoscopy - MAC (09/02/17) Social History Smoking/Tobacco Use Status: Former Tobacco Use Quit Date: 08/31/78 Tobacco: How many years used: 20 Smoking risk assessment performed?: Yes Alcohol Intake: current Alcohol Intake frequency: 0-2 drinks per day Alcohol type: hard liquor Medications: See chart Social History/Home Situation: Lives with his Ximena in [place]. One level home with 2 small steps to enter. Normally walks with 4 wheeled rolling walker, dragging his left LE. Normally poor strength and ROM of left LE secondary to spinal stenosis. Normally able to perform his own ADL's. does cooking, cleaning, driving. Reports they have a w/c that he uses if he is going out to an appointment and they did not have a w/c for him to use. 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 Objective: Mental Status: Patient is alert and oriented to person. Able to state he was in the hospital after several attempts. Unable to name his . Unable to consistently follow verbal cuing. Pain: Patient unable to report. reports chronic left LE ain. Vital Signs: Spoke with RN prior to entering room and reported vitals were stable. ROM/Strength: Unable to formally test secondary to expressive and receptive aphasia. Able to move all extremities against gravity. reports she normally assists him with left knee to chest 30 times every day secondary to his baseline difficulty moving his left LE. Sensation: Unable to formally test. Seems to respond to touch of all extremities. reports she is not sure if he has full sensation of his left LE secondary to his stenosis. Soft tissue/edema: No gross abnormalities observed. Bed Mobility/Transfers: not performed today secondary to minimal sleep and global aphasia. Recommend sit to stand lift to assist with chair tomorrow secondary to aphasia and patient attempting to physically assist (unless aphasia improved) Gait:Not performed Balance: not assessed [facility] AM-PAC 6 clicks Basic Mobility Inpatient Short Form: Raw Score:??10? CMS Score: 76.75% disability Informed Consent/Education:? Patient and instructed in purpose of PT consult and plan of care and is agreeable Treatment: AAROM UE into flexion x 10, SLR x 10, knee to chest x 10. Patient assisting/resisting at times. Assessment:? Patient is an 84? year old male adm on 08/13/24 s/p CVA.? Patient presents with decreased strength, decreased functional mobility, decreased balance and difficulty with ambulation. The patient would benefit from skilled inpatient services to improve these impairments to maximize function and safety. Patient is assessed as:? Low 10049?? History: aphasia, baseline difficulty with mobility secondary to spinal stenosis Examination: see above Presentation: Stable and uncomplicated? Decision Making:? Low (0 history, 1-2 exam, stable/predictable, easy 20) Physical Therapy Goals: 1 week Able to get in/out of bed with supervision only. Able to perform sit to/from stand with supervision only. Able to walk 30 feet with rolling walker with supervision only. Able to go up and down 2 steps with 1 rail with contact guard assist only. Equipment needs met Independent with home exercise program Plan of Care/Treatment Plan: 1-2x/day, 7 days/week x 1 week. Plan of care has been reviewed with the TECHNICAL SERVICES MANAGER providing the service under Physical Therapy direction. Initiate Physical Therapy intervention for strengthening, bed mobility, transfers, gait, stairs, balance training, use of assistive device. DISCHARGE RECOMMENDATIONS: Expect will need short term rehab at minimum. Informed consent Prior to the start and throughout the course of the examination and treatment, patient was made aware of the specifics and purpose of the physical assessment and treatment procedures. Appropriate draping procedures were utilized to protect modesty where applicable. Billing Charges: Treatment Units Time Duration Manual Therapy(63593) Hands-on techniques to modulate pain increase joint range of motion reduce or eliminate soft tissue swelling, inflammation, or restriction facilitate relaxation and improve contractile and non-contractile tissue extensibility ? ? Therapeutic Procedures (38997) Instruction in therapeutic exercises to develop strength and endurance, range of motion and flexibility. HEP instruction and review: Provided skilled instruction in proper exercise performance: Provided skilled manual cues to facilitate proper muscle recruitment and/or movement pattern 1 9 Neurological Re-Education(57840) To improve balance, coordination, kinesthetic and proprioceptive sensations. ? ? Ultrasound(13952) To promote healing. ? ? Gait Training(62656) ? ? Therapeutic Activity(73965) Instruction in dynamic activities with one on one patient contact by the provider to improve functional performance as follows: ? ? Self Care Training(51105) ? ? E-Stim (Attended)(30021) ? ? Low IE(02744) 1 10 Mod IE(41844) ? ? High IE(30839) ? ? Time Coded Treatment Time ? 9 Total Treatment Time ? 19
[2024-08-14] MEDS: Rosuvastatin 20 MG TAB PO (19:52)
[2024-08-14] MEDS: Tamsulosin 0.4 MG CAPCR 0.8 MG PO (19:52)
--- NOTE | 2024-08-14 23:45 | NUR.NOTE ---
Nursing Note: Pt incontinent of urine, when changing brief noted moderate amount of bright red blood in brief w/ 2-3 bright red clots. Previously noted throughout day small amounts of blood when urinating. Dr. Victoria notified see provider notification. PVR done 144ml present. No further interventions at this time. Will continue to monitor.
--- NOTE | 2024-08-15 | DI.MRI_ITS ---
Exam(s) MR BRAIN WO EXAM: MR BRAIN WO CLINICAL HISTORY: Acute onset of dysarthria c/w CVA TECHNIQUE: Multiplanar multisequence MRI of the brain was performed. COMPARISON: No exams were available for comparison FINDINGS: The patient could not complete the examination due to significant patient motion artifact. This is a n incomplete examination.No areas of restricted diffusion are seen on the diffusion-weighted images. IMPRESSION: Incomplete examination due to significant patient motion artifact. The patient was unable to complet e the examination. DATA REPOSITORY:
[2024-08-15] MEDS: Haloperidol 1 MG TAB PO (01:14)
[2024-08-15 03:29] VITALS: BP 170/70; PULSE 83; RESP 16; TEMP 36.7; O2SAT 95
[2024-08-15 03:40] VITALS: BP 170/70
[2024-08-15 07:02] VITALS: BP 170/77; PULSE 81; RESP 14; TEMP 37.6; O2SAT 92
[2024-08-15] MEDS: Apixaban 5 MG TAB PO ×2 (09:31→19:54)
[2024-08-15] MEDS: Normal Saline Flush 10 ML SYR IVP ×2 (09:31→19:55)
[2024-08-15] MEDS: Sertraline 50 MG TAB PO (09:31)
--- NOTE | 2024-08-15 09:48 | W.UROLOGYCON ---
Date of service: 08/15/24 Time of Service: 10:26 Assessment and Plan Assessment and plan (1) Gross hematuria: Status: Acute Assessment and plan: He just had an IV contrast load with his CT angiogram, so we will ask for a renal ultrasound. Cystoscopy will likely be needed at some point, but the anesthesia recommendations here at our [facility] are such that he is not in anesthesia candidate for at least 6 months after his stroke. We will use hand irrigation to try to keep his catheter from clotting off. The hematuria certainly could be from a combination of catheter trauma and anticoagulation. He does have a remote smoking history, and as far as I can tell, he has never had a cystoscopy, so we cannot completely rule out a bladder tumor at this point. He does have a history of urinary tract infections. A urine culture has been sent although his initial UA from the emergency department only showed rare bacteria. History of Present Illness History of Present Illness Chief Complaint: Gross hematuria Narrative: This is an 84-year-old gentleman who has a history of lower urinary tract symptoms. He was last seen in my office in 2017. At that time, he was having urinary frequency. He was already on alpha blockers and he was emptying his bladder fairly well, so we added in bladder relaxers. Since that time, he has had at least 2 different urinary tract infections. Each time he has had a positive culture, his urine has grown E. coli. He is now admitted with a stroke. A Hardy catheter was placed and gross hematuria was noted. I have been asked to see him for the hematuria. The patient's tells me that he has never had gross hematuria prior to this admission. His UA from the Emergency Department showed 5 to 10 RBC/hpf. He is on anticoagulants for atrial flutter. He does have a smoking history, but quit smoking back in 1978. He has no history of kidney stones and no history of urologic surgery. In the past, he had needed to discontinue aspirin therapy when he had persistent nosebleeds. Prior to developing urinary tract infections, the patient's typical symptom was worsening weakness. The patient's tells me this was not a major symptom for him prior to presenting to the emergency department. Review of Systems Narrative: No fevers or chills Macular degeneration. No diabetes or thyroid dysfunction No shortness of breath, cough or hemoptysis No chest pain or palpitations No nausea, vomiting, hepatitis, ulcers, jaundice No seizures, strokes or peripheral neuropathy Unable to ambulate on own [facility] All Active Problems (Updated 08/15/24 @ 10:39 by Jose Manzo MD) Gross hematuria (Acute) Stroke (Chronic) Cerebrovascular accident (CVA) (Acute) Prediabetes (Acute) Essential hypertension (Acute) Nicotine dependence (Acute) Atherosclerosis of coronary artery without angina pectoris (Acute) Rosacea (Acute) Diaphragmatic hernia (Acute) Left foot drop (Acute) BPH (benign prostatic hyperplasia) (Chronic) Abdominal pain (Acute) Splenomegaly (Acute) Aortic ectasia, thoracic (Acute) Chronic myelopathy (Acute) Vitamin B12 deficiency (Acute) Aneurysm of infrarenal abdominal aorta (Acute) Thrombocytopenic disorder (Acute) Macular degeneration (Acute) Vitamin D deficiency (Acute) Coronary artery disease (Chronic) Generalized muscle weakness (Acute) Acute UTI (Acute) Multiple falls (Acute) Anticoagulated (Acute) Atrial flutter (Acute) Medical History Left-sided epistaxis Aortic insufficiency Ascending aorta dilation Seborrheic keratoses Neoplasm of unspecified behavior of bone, soft tissue, and skin Spinal stenosis, lumbar region, with neurogenic claudication Cholelithiasis Hiatal hernia HTN (hypertension) Splenic lesion GERD (gastroesophageal reflux disease) BPH w/o urinary obs/LUTS Impaired fasting glucose Anxiety about health Hyperlipidemia Aortic valve regurgitation Anxiety History of tobacco use Erectile dysfunction Spinal stenosis, cervical region LLQ abdominal pain Myelopathy Surgical History Repair of inguinal hernia bilateral Colonoscopy - MAC (09/02/17) Social History Smoking/Tobacco Use Status: Former Tobacco Use Quit Date: 08/31/78 Tobacco: How many years used: 20 Smoking risk assessment performed?: Yes Alcohol Intake: current Alcohol Intake frequency: 0-2 drinks per day Alcohol type: hard liquor Drug use: Never Substance use type: does not use Housing: house What is your relationship status?: Panel score (0-1 are the most socially isolated patients): 1 What type of physical activity do you participate in: other Details: stationary cycle Duration: 15-30 minutes/day Frequency: daily Do you feel safe at home: Yes Do you feel safe in your relationship?: Yes Exam Narrative Exam Narrative: He is conversant, but not able to provide much recent medical history. His is at bedside and provides the majority of his history. He does not appear septic or toxic His vital signs are documented elsewhere in the chart His abdomen is soft. There is no CVA tenderness There is a Hardy catheter in place that is draining bloody urine He is awake and alert Results Last Vital Signs Temp 37.6 C H 08/15/24 07:02 Pulse 81 08/15/24 07:02 Resp 14 08/15/24 07:02 BP 170/77 H 08/15/24 07:02 Pulse Ox 92 08/15/24 07:02 Labs 08/14/24 00:01 08/14/24 04:40 Imaging Additional studies: He has had 2 prior E. coli urinary tract infections His most recent renal imaging was in May 2023. At that time, no renal masses or stones were seen. There was no hydronephrosis.
--- NOTE | 2024-08-15 10:20 | DI.US_ITS ---
Exam(s) US RENAL EXAM: US RENAL CLINICAL HISTORY: hematuria. TECHNIQUE: Hernandez scale, color and spectral Doppler were used. COMPARISON: CT ABD PELVIS WITH CONTRAST from 08/26/[address] THORACIC LUMBAR SPINE REC from 05/17/[address] CHEST/ABD/PEL W from 05/17/2023 FINDINGS: Renal size in cm: Right: 10.4. Left: 10.9. Echogenicity: Normal. Hydronephrosis: No. Cyst or mass: There is a stable parapelvic cyst in the inferior pole of the right kidney. No follow- up is recommended. Nephrolithiasis: No. Other findings: None. Bladder:There is a Hardy catheter in the urinary bladder. The urinary bladder volume was only 34 cc which limited evaluation. There is a question of 1.5 x 1.5 cm echogenic lesion at the right aspect o f the decompressed urinary bladder. This may be artifact secondary to the poorly distended urinary b ladder. Bladder wall mass or intraluminal mass cannot be excluded. Ureteral jets: Right: Not visualized on this examination. Left: Not visualized on this examination. Prevoid vol:34 cc Postvoid vol:Not obtained on this examination. Note is again made of multiple nodules within the spleen. This is been seen on several prior CT exam inations. Renal color flow: Symmetric and within normal limits. IMPRESSION: 1. No evidence of nephrolithiasis or hydronephrosis. 2. Question of a 1.5 x 1.5 cm echogenic lesion at the right aspect of the decompressed urinary bladde r. Artifact from poorly distended urinary bladder, bladder wall mass or intraluminal mass should be considered. CT examination of the abdomen and pelvis is recommended with delayed images through the urinary bladder. Unexpected findings DATA REPOSITORY:
--- NOTE | 2024-08-15 10:38 | PTTR_ITS ---
PT Notes Visit Reasons: Cerebrovascular accident Inpatient Physical Therapy Treatment Note [facility] Date: 08/15/2024 PRECAUTIONS: L LE weakness from history of myelopathy. Activity as tolerated. High fall risk. Standard precautions. SUBJECTIVE: When asked how many years patient has been with Pili, he said 26 years but said 65 years. is hopeful that because he has declined so much that he could go to a facility for short-term rehab before transitioning home. She expresses that she will not be able to help him alone at home. OBJECTIVE: Patient resting in bed. Nurse Elba and Ximena present in room. Patient is due to be transferred downstairs for an MRI and abdominal ultrasound. Bloody urine noted through bustamante tubing. L LE weakness observed. 08/14/2024 Head/Neck CTA Impression : 1. Patent carotid arteries in the neck. No hemodynamically significant stenosis. Amount of stenosis at the level the carotid bifurcations and proximal internal carotid arteries is approximately 20 percent bilaterally. 2. Patent vertebral arteries. 3. Patent intracranial arteries. There bilateral communicating arteries on both sides the pulmen-ab-Gnqgct. 4. White matter ischemic changes in the brain. No ring enhancing lesions. If clinically indicated follow-up MRI with diffusion imaging can be performed for added sensitivity and specificity. ? PAIN: None reprorted VITALS: Closely monitored by nursing staff ? BED MOBILITY/TRANSFERS:? Minimal cueing provided for use of B hands as needed for support, movement sequence, AD management, and posture to reduce fall risk and minimize pain report ? Rolling L/R: moderate assist x 2 Supine-sit: moderate assist x 2? Sit-supine: moderate assist x 2 ? Sit-stand: moderate assist x 2 ? Stand-sit: moderate assist x 2? Bed-Chair: moderate assist x 2? Chair-bed: moderate assist x 2 GAIT? Assistive Device: FWW? Weight bearing: FWB Assist: moderate assist ? Distance:? Small 8 steps ? Deviation: L LE drags. Asymmetric step length and height. Maximal cueing needed for safety, directional change, AD management and limb advancement.? STAIRS: ? Not performed for this session. ? ASSESSMENT:? Patient with chronic L LE weakness due to myelopathy from pre-existing spinal stenosis with repeated falls ( said 4-5x in the past year), who was admitted due to stroke-like symptoms. Head and neck CTA did not show any CVA/TIA. Patient is scheduled to have MRI and was assisted by this PT to transfer onto stretcher for the MRI testing. Noted significant weakness on the L LE and L UE with L LE more affected than the L UE, unsure of how much was from previous myelopathic pathology vs new deficit from suspected CVA. Patient required 2 assist for transfers and needed moderate to maximal cueing for safety. Impulsive with poor safety awareness. Risk for falls high at this time and will highly benefit from SNF placement. PLAN: Patient to be seen 1-2x/day 7 days a week for 1 week for neuromuscular re- education, progressive strengthening, balance retraining, and functional mobility retraining to facilitate return to prior level of function. DISCHARGE RECOMMENDATION: [] Home with no services [] [] Home with services [specify] [] Home with outpatient PT [] [X] SNF for continued rehabilitation. Patient will benefit from half-way facility placement for continued skilled physical therapy services in order to progress mobility level, strength, and balance in preparation for a safe discharge to home. [] [facility] [] [] SNF versus LTC based on ability to participate and progress [] TREATMENT CODE/TIME: 82909 x 24 minutes for 2 units (10:38-11:02).
[2024-08-15] MEDS: LORazepam 1 MG TAB PO (10:50)
--- NOTE | 2024-08-15 11:40 | PHACLINREV_ITS ---
Pharmacy Admission Review Admission Clinical Review Admission Pharmacy Review: Gross hematuria (Acute) Cerebrovascular accident (CVA) (Acute) No Known Allergies Allergy (Verified 08/14/24 00:33) Resuscitation Status DNR/DNI Height 5 ft 5 in Weight 71.305 kg Pharmacy Admission Review Renal Dosing Renal Dosing: BUN 19 mg/dL (7-18) H 08/14/24 04:40 Creatinine 1.0 mg/dL (0.70-1.30) 08/14/24 04:40 Medications needing adjustments: Reviewed (CrCl 55.46 mL/min) List of meds needing interventions: Current medications are okay Anticoagulation Anticoagulation: Hgb 12.6 g/dL (13.5-17.5) L 08/14/24 00:01 Hct 38.7 % (40.0-50.0) L 08/14/24 00:01 Plt Count 120 10^3/uL (130-400) L 08/14/24 00:01 INR 1.3 (0.9-1.1) H 08/14/24 00:01 INR Cancelled 08/14/24 00:01 Creatinine 1.0 mg/dL (0.70-1.30) 08/14/24 04:40 DVT Prophylaxis: Reviewed Medications: Apixaban (5mg PO BID) Relevant Labs Relevant Labs: Sodium 139 mmol/L (136-145) 08/14/24 04:40 Potassium 4.3 mmol/L (3.5-5.1) 08/14/24 04:40 Chloride 106 mmol/L (98-107) 08/14/24 04:40 Magnesium 2.0 mg/dL (1.8-2.4) 08/14/24 00:01 Electrolytes, C-Reactive P, ESR: Reviewed (No new labs for today) Cardiac Review Cardiac Review: Troponin I 54 ng/L (<or=76) 08/14/24 08:25 Blood Pressure 170/77 0702 Blood Pressure 170/70 0340 Blood Pressure 170/70 0329 BP, HR, EF%: Reviewed (permissive HTN per H+P, HR WNL) QTc Review QTc: Reviewed (568 from 08/14/24) List meds needing interventions: Current medications are okay IV to PO Switch IV Medications: Reviewed Home Meds Home Med List reviewed: Intervened Relevent Home Meds Not ordered & why?: baclofen, vitamin D3, vitamin B12, l isinopril (on hold per H+P), mirtazapine and omeprazole Asked provider about baclofen, mirtazapine and omeprazole. Provider is looking into it. Current Meds Current Medication Order Review: Intervened Comments: H+P states to start aspirin 81mg daily but was not ordered. Reached out to provider, waiting to hear back.
[2024-08-15 11:53] VITALS: BP 139/68; PULSE 85; TEMP 36.8; O2SAT 95
--- NOTE | 2024-08-15 14:58 | PTTR_ITS ---
PT Notes Visit Reasons: Cerebrovascular accident Inpatient Physical Therapy Treatment Note [facility] Date: 08/15/2024 PRECAUTIONS:Fall risk, standard precautions SUBJECTIVE: Pt stating he wants to stand up OBJECTIVE: Pt presented in bed with in room. Pt restless, picking at items in the air and then on this therapist arm. Pt's reports he has been like this since they gave him the medication for the MRI. ? PAIN: denies VITALS: Monitor via telemetry throughout Therapeutic Activities ([id number][]): Direct one-on-one instruction in dynamic activities to improve functional performance. ? BED MOBILITY/TRANSFERS? Rolling L/R: mod assist with rail x 3 trials Supine-sit: mod A of 1 with HOB elevated to 20 degrees ? Sit-supine: mod A of 1 ? ? Bridge : pt able to perform bridge with Tristen to achieve knee and hip flexion. ? Provided skilled cues and instruction on performance and technique throughout. Neuromuscular Re-education ([id number][]): Activities that facilitate re-education of movement balance, posture, coordination, and proprioception or kinesthetic sense, requiring skilled tactile and verbal cues ? Exercises/techniques: ?Down on elbow R and L facilitating return to midline , midline orientation with BUE support on knees and trials with 1 UE on bed facilitating posture in sitting with BUE support and mod A to sustain midline however unable to raise head without trunk extension Pt required continuous tactile cues to trunk to sustain upright position at edge of bed ASSESSMENT:? Pt with impaired level of alertness this session after MRI. He unable to follow instructions for transfers and unable to sit at edge of bed this session. Pt noted with extensor tone LLE limiting ability to sustain sitting at edge of bed until able to position hip in 90 degrees of flexion to allow knee and DF. Plan: Patient to be seen 1-2x/day 7 days a week for 1 week for neuromuscular re- education, progressive strengthening, balance retraining, and functional mobility retraining to facilitate return to prior level of function. TREATMENT CODE/TIME: 63359, 30697 / [id number] DISCHARGE RECOMMENDATION: SNF
--- NOTE | 2024-08-15 15:46 | SP_ITS ---
Date of service: 08/15/24 Time of Service: 12:15 Subjective Clinical (Bedside) Swallow Evaluation Speech Language Pathology Referred by: Dr Donald De Anda Referral Type: Clinical Swallow Evaluation Reason for Referral/HPI: Lucho Soriano is an 84 yo male who with PMH significant for HTN, HLD, spinal stenosis, Aflutter on eliquis who was admitted 08/14/24 with dysarthria and altered mental status, admitted for CVA workup. CT revealed chronic small vessel disease and nonhemorrhagic lacunar infarct in the right periventricular white matter in the anterior limb of the right internal capsule. MRI attempted today but unable to complete due to significant patient motion artifact. RETAIL FIELD SUPERVISOR IMPRESSIONS & RECOMMENDATIONS: Lucho was seen today for a non-instrumental swallow evaluation with his and daughter present. He was alert though restless, appearing to be hallucinating and reaching for items. His confusion was reported by nursing/family to be new since receiving medication to go down to MRI earlier today. Family states his dysarthria was mostly back to baseline prior to this change in status. Lucho did demonstrate clear verbal responses/sentences intermittently despite delirious presentation. He accepted PO (full assist) including minced fish, mashed potatoes, tea via cup, and vanilla ice cream. Intermittent throat clearing appreciated with vanilla ice cream only, no other significant coughing or change in vocal quality. Overall he is considered a heightened risk for aspiration given current cognitive presentation and suspected neurological event. Risks can be mitigated with aspiration precautions and diet modifications as outlined below. RETAIL FIELD SUPERVISOR to continue to follow for consideration of diet upgrade and continued diagnostic treatment in areas of speech/language/cognition as indicated based on patient presentation/repeat MRI findings. FURTHER RETAIL FIELD SUPERVISOR SERVICES: Patient to be followed while on unit. Upon discharge, RETAIL FIELD SUPERVISOR service needs TBD. Diet Recommendations: SOLIDS: 5-Minced & Moist Solids LIQUIDS: 0-Thin Liquids MEDICATIONS: Whole (if small) or crushed in puree solid RISK MANAGEMENT: HOB upright as tolerated; upright for all PO intake. Encourage physical mobility as tolerated. Oral hygiene before/after PO intake using friction with toothbrush on all oral structures as tolerated Level of Assistance/Supervision: 1:1 close supervision for all PO intake, Assistive feeding only by trained staff/family PO intake only when awake/alert? Strategies/Adaptations/Assistive Equipment: Reduce auditory and/or visual distractions when eating Provide verbal and/or visual cues to use recommended strategies Small sips and bites when eating, Slow rate of intake Posture/Positioning Needs: Maintain upright position at least 30 minutes after meals SUBJECTIVE: Patient received alert, eyes closing, confused, reaching for items that weren't there, attempted to bring tissue to mouth to eat once. Pain Reported? None Baseline Swallow Function: Family denies swallowing difficulty prior to admission and eats a regular diet at baseline. PO Trials Assessed: IDDSI 0 Thin Liquids (tea via cup) IDDSI 4 Puree Solid (mashed potatoes, ice cream) IDDSI 5 Minced and Moist Solid (fish) Oral Mechanism Examination: Unable to complete in light of patient confusion Oral Phase Findings: Difficulty with bolus manipulation Delayed a-p transport No pocketing Pharyngeal Phase Findings: Delayed swallow initiation Throat clearing?with ice cream only. Restless movements may be contributing. ASSESSMENT: Further RETAIL FIELD SUPERVISOR Services indicated. Patient to be followed while on unit. Recommendation at Discharge: to be determined Suggested Referrals: N/A Recommended Procedures: N/A Recommendations: ? Education Provided to: Nursing, Patient, Family Topics Addressed: RETAIL FIELD SUPERVISOR Findings PLAN: Frequency: 2-3x/week for 1-2 weeks Goals: Airplane Refueler Goals: Patient will remain free from aspiration-related illness, malnutrition, and dehydration. Short Term Goals: Patient will participate in ongoing diagnostic treatment addressing areas of speech/language/cognition as indicated pending MRI findings/patient presentation. Patient will tolerate L5 minced moist Diet and Thin liquids without overt s/s aspiration across 2/2 visits. Patient will tolerate PO trials for consideration of diet upgrade without overt s/s aspiration across 2/2 visits. RETAIL FIELD SUPERVISOR CPT Code: 21257 Clinical Swallowing Evaluation TOTAL TIME: 45 Minutes [id number]
--- NOTE | 2024-08-15 16:31 | PDOC.CMIN ---
Date of service: 08/15/24 Time of Service: 11:00 Care Management Initial Assmt Initial Assessment Reason for Hospitalization: R/O CVA Functional Status/Living Situation Patient Presentation: Lucho was admitted yesterday after being brought to the ER by EMS when his noted that he was unable to speak and had increased confusion. Marquis, at baseline, has a weakened LLE due to spinal stenosis. He has been mainly independent at home, with the help of of . Lucho has been managing the finances and his own medications up until this point. When met with Marquis, he was just coming back from some testing. Of note, to complete the CVA workup, Marquis was ordered for an MRI and an echocardiogram, neither of which could be completed today due to Marquis's inability to stay still for the testing. Head/Neck CTA from the ER did not show any infarct or narrowing of the internal carotid. Marquis's , Pili, and his daughter, Galilea, were both present in the room. Pili stated that she feels Marquis will need extensive rehab after this event. [facility]errals were placed today at [facility], the [facility], [facility], [facility] hospital, [facility], and the [facility]. The family did not have any preferences, and agreed it was best to send to all and to send early. Town of Residence: [place] Resides with: Spouse (Pili) Significant Other/Family: Local (daughter, Galilea, lives in [facility], 3 sons all live within 20 minutes. Pili was happy to point out that she and Marquis have 10 grandchildren and 14 great grandchildren.) Natural Supports: Very supportive family Employment Status: Retired Instrumental Activities of Daily Living (ADLs): Independent (Has previously been mostly independent) Medications Medication Management: No Issues/Barriers identified Physical Functioning/Mobility Assistive Device: FWW Advance Directives Advance Directives: Do you have an Advance Directive: Y 10/03/19 13:15 AD On File at [facility]: Y 02/12/21 10:20 Date Asked 08/14/24 08/14/24 10:26 AD Date Reviewed 05/20/24 07/30/24 20:17 COLST On File at [facility] COLST Date Scanned Code Status Resuscitation Status DNR/DNI Portal Pt does not currently have a portal and education provided: No Insurance Coverage/Financial Issues Insurance: Medicare and AARP supplement Care Team Visit Care Team Role Provider Type Patience Alvarez MD Primary Care Provider [facility] STAFF PHYSICIAN Melanie Mendez, COMMERCIAL ROOFER Other Providers SPEECH LANGUAGE PATHOLOGIST Eduardo Paz, COMMERCIAL ROOFER Other Providers SPEECH LANGUAGE PATHOLOGIST Rhianna Gill Other Providers SPEECH LANGUAGE PATHOLOGIST Yolanda Menon, COMMERCIAL ROOFER Other Providers SPEECH LANGUAGE PATHOLOGIST Jud Tatum, COMMERCIAL ROOFER Other Providers SPEECH LANGUAGE PATHOLOGIST [facility]Patient [facility] Other Providers OTHER Jose Manzo MD Other Providers [facility] STAFF PHYSICIAN Katelin Hardin MD Emergency Provider [facility] STAFF PHYSICIAN Donald De Anda MD Admit Provider [facility] STAFF PHYSICIAN Attending Provider Discharge Potential Discharge Needs: PCP F/U Appt Anticipated Barriers to Discharge: Bed availability Patient/Family Education Needs: Review discharge instructions, discuss Ask Me Three Plan: Anticipate that Lucho will be transferred to SNF for rehab/strenghtening once he is medically stable and a bed has been secured. Transportation will be determined by his physical status and by his disposition. CM will continue to follow and update the family as needed. PFSH All Active Problems (Updated 08/15/24 @ 10:39 by Jose Manzo MD) Gross hematuria (Acute) Stroke (Chronic) Cerebrovascular accident (CVA) (Acute) Prediabetes (Acute) Essential hypertension (Acute) Nicotine dependence (Acute) Atherosclerosis of coronary artery without angina pectoris (Acute) Rosacea (Acute) Diaphragmatic hernia (Acute) Left foot drop (Acute) BPH (benign prostatic hyperplasia) (Chronic) Abdominal pain (Acute) Splenomegaly (Acute) Aortic ectasia, thoracic (Acute) Chronic myelopathy (Acute) Vitamin B12 deficiency (Acute) Aneurysm of infrarenal abdominal aorta (Acute) Thrombocytopenic disorder (Acute) Macular degeneration (Acute) Vitamin D deficiency (Acute) Coronary artery disease (Chronic) Generalized muscle weakness (Acute) Acute UTI (Acute) Multiple falls (Acute) Anticoagulated (Acute) Atrial flutter (Acute) Medical History Left-sided epistaxis Aortic insufficiency Ascending aorta dilation Seborrheic keratoses Neoplasm of unspecified behavior of bone, soft tissue, and skin Spinal stenosis, lumbar region, with neurogenic claudication Cholelithiasis Hiatal hernia HTN (hypertension) Splenic lesion GERD (gastroesophageal reflux disease) BPH w/o urinary obs/LUTS Impaired fasting glucose Anxiety about health Hyperlipidemia Aortic valve regurgitation Anxiety History of tobacco use Erectile dysfunction Spinal stenosis, cervical region LLQ abdominal pain Myelopathy Surgical History Repair of inguinal hernia bilateral Colonoscopy - [facility] (09/02/17) Social History Smoking/Tobacco Use Status: Former Tobacco Use Quit Date: 08/31/78 Tobacco: How many years used: 20 Smoking risk assessment performed?: Yes Alcohol Intake: current Alcohol Intake frequency: 0-2 drinks per day Alcohol type: hard liquor Drug use: Never Substance use type: does not use Housing: house What is your relationship status?: Panel score (0-1 are the most socially isolated patients): 1 What type of physical activity do you participate in: other Details: stationary cycle Duration: 15-30 minutes/day Frequency: daily Do you feel safe at home: Yes Do you feel safe in your relationship?: Yes Readmission Within the Past 30 Days Yes or No: No SDOH(Care Management) Screening Will the Patient Participate in the Screening?: Unable to obtain Do you worry about having a steady place to live?: no In the past 12 months, have you had to go without electric, gas, oil or water in your home?: no Have you or anyone in your house had to go without enough food to eat?: no Has lack of transportation kept you from medical appointments or from doing things needed for daily living?: no Has anyone in your support network made you feel unsafe for any reason?: no Social Determinants of Health Comments(SDOH Details): Obtained by , pt unable to answer at this time
[2024-08-15] MEDS: Tamsulosin 0.4 MG CAPCR 0.8 MG PO (19:54)
[2024-08-15] MEDS: Rosuvastatin 20 MG TAB PO (19:54)
[2024-08-15 20:07] VITALS: BP 165/76; PULSE 85; RESP 14; TEMP 36.7; O2SAT 93
[2024-08-15] MEDS: Mirtazapine 15 MG TAB PO (23:42)
[2024-08-15] MEDS: diphenhydrAMINE 25 MG CAP PO (23:42)
--- NOTE | 2024-08-16 | DI.MRI_ITS ---
Exam(s) MR BRAIN WO EXAM: MR BRAIN WO CLINICAL HISTORY: possible cva TECHNIQUE: Multiplanar multisequence MRI of the brain was performed. COMPARISON: CT CT BRAIN NECK CTA from 08/14/2024 MR MR LIMITED EXAM from 08/15/2024 FINDINGS: CEREBRAL PARENCHYMA: There is no evidence of intracranial hemorrhage, mass effect, or shift of midline structures. There are no extra-axial fluid collections. There is involutional change consistent with this patient's ad vanced age. The size of the ventricles is not out of proportion when compared to the size of the ove rlying cortical sulci. There is no significant focal signal abnormality in the cerebellar hemispheres nor within the catracho, m idbrain, and thalami. There is relatively symmetrical FLAIR bright signal abnormality in the bilateral periventricular whit e matter, not associated with hemorrhage, surrounding edema, nor restricted diffusion. There is no significant focal signal abnormality evident on diffusion imaging to suggest acute ischem ic event. SWI imaging reveals no evidence of microhemorrhages in the brain. PITUITARY GLAND: No mass nor parasellar abnormality. No obvious abnormality in the cavernous sinuses. FLOW VOIDS: The expected flow void are noted. No evidence of obvious aneurysm nor obvious vascular ma lformation. PARANASAL SINUSES: The visualized paranasal sinuses appear unremarkable. No obvious finding ORBITS: No obvious findings. IMPRESSION: No significant acute intracranial findings on this noninfused MRI scan of the brain. There is a moderate amount of bilateral periventricular hypodensity consistent with chronic small ves frank disease. There is no evidence of acute ischemic event nor intracranial hemorrhage. There is symmetrical involutional change consistent with this patient's advanced age. DATA REPOSITORY:
[2024-08-16 02:48] VITALS: BP 149/73; PULSE 85; RESP 14; TEMP 36.8; O2SAT 92
[2024-08-16 06:09] VITALS: BP 132/61; PULSE 60; RESP 15; TEMP 36.7; O2SAT 93
[2024-08-16 08:12] LABS: Abs Immature Grans 0.05 10^3/uL (0.0-0.06); Absolute Basophil Count 0.04 10^3/uL (0.0-0.2); Absolute Eosinophil Count 0.14 10^3/uL (0.0-0.7); Absolute Lymphocyte Count 0.61 10^3/uL (1.2-3.4); Absolute Monocyte Count 0.74 10^3/uL (0.1-0.8); Absolute Neutrophil Count 4.79 10^3/uL (1.2-6.7); Basophils % 0.6 %; Eosinophils % 2.2 %; HCT 38.4 % (40.0-50.0); HGB 12.6 g/dL (13.5-17.5); Immature Grans % 0.8 %; Lymphocytes % 9.6 %; MCH 28.7 pg (27.0-33.0); MCHC 32.8 % (32.0-36.0); MCV 88 fL (80-95); MPV 8.9 fL (8.0-11.0); Monocytes % 11.6 %; Neutrophils % 75.2 %; Platelet Count 124 10^3/uL (130-400); RBC 4.39 10^6/uL (4.36-5.78); WBC 6.37 10^3/uL (4.4-10.8)
[2024-08-16] MEDS: Sertraline 50 MG TAB PO (08:21)
[2024-08-16 08:22] LABS: Anion Gap 9.1 mmol/L (3-11); BUN 15 mg/dL (7-18); CO2 28.9 mmol/L (21.0-32.0); CREATININE 1.1 mg/dL (0.70-1.30); Calcium 8.8 mg/dL (8.5-10.1); Chloride 104 mmol/L (98-107); Estimated GFR 66.19 (mL/min/1.73m2); Glucose 120 mg/dL (74-106); Potassium 4.4 mmol/L (3.5-5.1); Sodium 142 mmol/L (136-145)
[2024-08-16] MEDS: Apixaban 5 MG TAB PO ×2 (08:22→20:34)
[2024-08-16] MEDS: Normal Saline Flush 10 ML SYR IVP ×2 (08:22→20:35)
[2024-08-16] MEDS: Baclofen 10 MG TAB 20 MG PO (08:22)
--- NOTE | 2024-08-16 08:30 | PT.INTREAT ---
PT Notes Visit Reasons: Cerebrovascular accident Inpatient Physical Therapy Treatment Note [facility] Date: 08/16/2024 PRECAUTIONS: L LE weakness from history of myelopathy. Activity as tolerated. High fall risk. Standard precautions. DO ALL TRANSFERS LEADING WITH THE GOOD R LE WITH FWW.. SUBJECTIVE: Had a good breakfast. arrived at start of PT session. Per Nurse Elba, patient was not able to tolerate MRI testing yesterday, sedative did not fully work for patient and caused vomitting while inside machine testing had to be immediately stopped. OBJECTIVE: Patient resting in bed. Nurse Elba and Ximena present in room. Patient is due to be transferred downstairs for an MRI and abdominal ultrasound. Bloody urine noted through bustamante tubing. L LE weakness observed. Later in the morning, was able to engage for a seated activity to work on trunk. ? PAIN: None reproted VITALS: Closely monitored by nursing staff ? BED MOBILITY/TRANSFERS:? Moderate cueing provided for use of B hands as needed for support, movement sequence, AD management, and posture to reduce fall risk and minimize pain report ? Rolling L/R: moderate assist x 2 Supine-sit: moderate assist x 2? Sit-supine: moderate assist x 2 ? Sit-stand: moderate assist x 2 ? Stand-sit: moderate assist x 2? Bed-Chair: moderate assist x 2? Chair-bed: moderate assist x 2 GAIT? Assistive Device: FWW? Weight bearing: FWB Assist: moderate assist ? Distance:? Small 10 steps ? Deviation: L LE drags and unable to advance forward due to suspected new onset weakness superimposed on pre-existing weakness. Asymmetric step length and height. Maximal cueing needed for posture, safety, directional change, AD management and limb advancement.? ? THERA ACT: Worked on trunk mobilization utilizing functional activities working on rotation, trunk latera flexion, flexion and extension back to neutral placing while working on ability to estimate distance from one surface to another transferring toiuletry items from basin onto table and vice versa. Rowing activity utilizing B UE and trunk flexion extension with resistance placed towards trunk extension and B UE flexion x 10. THERA EX: Facilitated correct performance of seated marches with holding at end of range x 10 with oderate cues given for accurabce and safety of movement ? ASSESSMENT:? Able to better tolreate today's activity with minimal shortness of breath and without report of headache, chest pain and lightheadedness. Patient with chronic L LE weakness due to myelopathy from pre-existing spinal stenosis with repeated falls ( said 4-5x in the past year), who was admitted due to stroke-like symptoms. Head and neck CTA did not show any CVA/TIA. Patient is scheduled to have MRI and was assisted by this PT to transfer onto stretcher for the MRI testing. Noted significant weakness on the L LE and L UE with L LE more affected than the L UE, unsure of how much was from previous myelopathic pathology vs new deficit from suspected CVA. Patient required 2 assist for transfers and needed moderate to maximal cueing for safety. Impulsive with poor safety awareness. Risk for falls high at this time and will highly benefit from SNF placement. PLAN: Patient to be seen 1-2x/day 7 days a week for 1 week for neuromuscular re-education, progressive strengthening, balance retraining, and functional mobility retraining to facilitate return to prior level of function. DISCHARGE RECOMMENDATION: [] Home with no services [] [] Home with services [specify] [] Home with outpatient PT [] [X] SNF for continued rehabilitation. Patient will benefit from group home facility placement for continued skilled physical therapy services in order to progress mobility level, strength, and balance in preparation for a safe discharge to home. [] Long-Term Care [] [] SNF versus LTC based on ability to participate and progress [] TREATMENT CODE/TIME: 44732 x 20 minutes for 1 unit, 71218 x 16 minutes (08:30-08:46 and 11:40-12:00).
--- NOTE | 2024-08-16 10:02 | W.PALLCONSUL ---
Date of service: 08/16/24 Time of Service: 13:58 History of Present Illness Narrative: PRELIMINARY NOTE. DO NOT USE Lucho Soriano is an 84-year-old gentleman who lives in [facility]. He suffered a PresumedCVA on 08/14/2024 exhibiting symptoms of dysarthria, expressive aphasia (word salad) and confusionWith increased weakness and inability to stand unassisted.. Known medical problems include A-fib/flutter (on DOAC), recurrent UTIs, spinal stenosis with chronic left leg weakness, hypertension, hyperlipidemia Patient unable to give any history today. History from [facility] chart and from [facility] Care Team: Primary Care physician: Kim Urology: REAGAN, Jovany Cardiology: Dr. 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 Hobbies: Reading, crosswords, watch TV (Nancy) Additional Services:None Impression of currents health status: : I won't know until he goes to Rehab. Lost quite a bit with CVA. What bothers you the most: unable to answer What worries you the most: That once at rehab he is going to be disoriented and wonder why is not there.. Goals: not sure yet Enjoying eating food. Visiting by family Looking at magazines Current information preferences: Function: Ambulation: Walker, occasionally uses wheelchair if spinal stenosis particularly bothersome. Currently 2 person transfer assist. ADLs: Able to feed himself. Previous to CVA, was able t dress himself, able to dress himself with loose clothes (and socks), washed himself. Toileted himself. iADLs: Prior to CVA, not able to do any chores HE was still able to manage the finanaces and manage his own medications. Hearing: NO hearing aids, hearing 90% Vision: fine with glasses. Cognition: thinks with it conjunctively prior to CVA Falls: Frequent falls. Driving: Gave up driving 2 months ago. Palliative Performance Scale % Ambulation Activity and Evidence of Disease Self Care Intake Level of Consciousness 100 Full Normal activity, no evidence of disease Full Normal Full 90 Full Normal activity, some evidence of disease Full Normal Full 80 Full Normal activity with effort, some evidence of disease Full Normal or reduced Full 70 Reduced Unable to do normal work, some evidence of disease Full Normal or reduced Full 60 Reduced Unable to do hobby or some housework, significant disease Occasional assist necessary Normal or reduced Full or confusion 50 Mainly sit/lie Unable to do any work, extensive disease Considerable assistance required Normal or reduced Full or confusion 40 Mainly in bed Unable to do any work, extensive disease Mainly assistance Normal or reduced Full, drowsy, or confusion 30 Totally bed bound Unable to do any work, extensive disease Total care Reduced Full, drowsy, or confusion 20 Totally bed bound Unable to do any work, extensive disease Total care Minimal sips Full, drowsy, or confusion 10 Totally bed bound Unable to do any work, extensive disease Total care Mouth care only Drowsy or coma 0 - - - - Patient Score: Currently 50. Previous to [id number] Spiritual history: Did not go restorationism and prayer not important. Palliative review of systems: Pain: Denies Dyspnea: GI symptoms: Appetite: Depression: Anxiety: None Emotional Distress: Spiritual/Existential Distress: Labs: Cr: 1.0 Liver panel: Normal Albumin: 3.3 CBC: Hemoglobin 12.6, platelets 124K (platelets chronically 120 or less) Advanced Care Planning: Advanced Directive: 2013 on file, reviewed: NO feeding tube., NO breathing machine or CPR under any circumstances. Health Care Agent:As per 2013 AD; Yue is [facility]. Daughter Galilea Quinones is alternate. COLST: COLST completed today 08/16/2024: DNR/DNI, positive transfer, positive treat with IV antibiotics and IV fluids. No feeding tube Limitations: Assessment and Plan Assessment and plan (1) Cerebrovascular accident (CVA): Status: Acute Assessment and plan: Lucho Soriano is an 84-year-old gentleman who until this week lived in with his in [facility]. He had been having progressive weakness, presumably from his spinal stenosis, having more more difficulty walking and mostly having to use a wheelchair over the last few months. finally convinced him to give up driving about 2 months ago. Of note he also was having occasional coughing and choking with swallowing over the last few months as well. Acutely 3 days ago he became more confused, developed aphasia with word salad (reportedly also with some dysarthria initially) and increasing lower extremity weakness. Although no obvious area of ischemia or hemorrhage has been seen on several head images, is presumed that he had an acute stroke causing these changes. Nursing staff feels he is a little bit more awake and interactive since admission. However his does not think he will ever be able to return to live in their home and will likely need to live long-term in SNF. She cannot care for him unless he is able to toilet himself. #Probable CVA: As per staff, he has been participating in physical therapy. Curious that they are still not seeing areas of ischemia on today's MRI. Hopefully he will slowly regain skills loss and acute episodes 3 days ago (speech, regained some lower extremity strength as well). #Goals of care: Prior to acute episode several days ago, he spent most of his time reading, doing crossword puzzles and watching TV. He enjoyed spending time with , children and grandchildren great-grandchildren. He was the one who managed all the payment of bills, although recently he had asked his to help because he was having an unsteady signature and she was starting to learn how to pay the bills. Now that he has had this stroke, is at a loss to think about what would be important to him going forward. She thinks he would like to watch gun smoke on TV, look at magazines, continue to spend time with family. When I asked her how he would feel about having to go to SNF, she says we never discussed this. But we all are getting older and this is what we have to except . She seemed quite accepting of this. I also asked her how she felt about having to live alone at least in the short-term. She felt safe doing that and things are set up well. She has support from her neighbors and her children. She has everything she needs at home, even if she loses electricity or cannot leave because of weather. She says she is accepting of this and will do what she needs to do. Advance care planning: Although she tells me she and her never discussed what they would want in the future should either 1 and have become ill, they both decided to fill out advance directives in 2012. They even had them notarized because they were warned that in order for the advance directives to be valid in [place] they would need to be notarized. We reviewed Mr. Soriano's very thoughtful 2013 advanced directives. We went through each section. We discussed the procedure of CPaR, actual mechanical process, rate of success in restoring heartbeat, short and long-term side effects in survivors (including likely decreased physical and cognitive functioning). Mr. Soriano indicated in his advance directive that there was no situation in which he would want to have CPR or intubation or a feeding tube.YUE confirmed that she knows that this was the way he felt and agreed to this. Yue is fairly sure that he will need to remain in long-term for long-term care. She seems to think that he would find this acceptable (although I am sure he would rather be at home ). Regarding whether or not she thought he would want to come back to the hospital we treated if he had acute illness or infection, she is not really sure. She does think he would want a UTI treated. As per advanced directive, if he was actively dying, he would want comfort measures only and would not want any attempts to have life prolonged if he was so sick he only had weeks or less to live, or was unconscious and unlikely to regain consciousness. Based on this, a COLST form was completed as DNR/DNI, yes to transfer, yes to trial of antibiotics and IV fluids, no feeding tube. I would suggest discussing any aggressive care such as ICU admission or use of pressors with and children prior to using these treatments. I suspect it will become easier to make these decisions in a few weeks as we see what kind of recovery Mr. Soriano has from this neurological event. Also give his a chance to think this through. She is agreeable to meeting with me in 3 to 4 weeks either at rehab or wherever he is living at that time. We are happy to meet with patient and sooner as needed. . (2) Gross hematuria: Status: Acute (3) Confusion: Status: Acute (4) Dysarthria: Status: Acute (5) Spinal stenosis, lumbar region, with neurogenic claudication: Status: Acute (6) Multiple falls: Status: Acute (7) DNR (do not resuscitate): Status: Acute (8) Palliative care patient: Status: Acute (9) Advanced care planning/counseling discussion: Status: Acute Assessment and plan: 30 minutes spent today on Advance Care Planning. Patient and family participated voluntarily. Advance care planning may include (not limited to) explanation and discussion of advance directives, choosing and appointing healthcare agents, alternatives to various ACP tools, discussion of (and if indicated, completion of) COLST form, discussion of patient's values and overall goals for treatment, palliative and disease directive care options, ways to avoid hospital readmission including hospice discussions, care preferences should the patient's several other adverse health events.See today's palliative care note for additional information. This note was dictated using speech recognition software. Attempt was made at proofreading, but errors may be present. Please call with questions. PFSH All Active Problems (Updated 08/16/24 @ 16:31 by Giovanna Oneal MD) Advanced care planning/counseling discussion (Acute) Palliative care patient (Acute) DNR (do not resuscitate) (Acute) COLST 08/16/2024: DNR/DNI, positive transfer, positive treat with IV antibiotics and IV fluids. No feeding tube Spinal stenosis, lumbar region, with neurogenic claudication (Acute) Dysarthria (Acute) Confusion (Acute) Gross hematuria (Acute) Stroke (Chronic) Cerebrovascular accident (CVA) (Acute) Prediabetes (Acute) Essential hypertension (Acute) Nicotine dependence (Acute) Atherosclerosis of coronary artery without angina pectoris (Acute) Rosacea (Acute) Diaphragmatic hernia (Acute) Left foot drop (Acute) BPH (benign prostatic hyperplasia) (Chronic) Abdominal pain (Acute) Splenomegaly (Acute) Aortic ectasia, thoracic (Acute) Chronic myelopathy (Acute) Vitamin B12 deficiency (Acute) Aneurysm of infrarenal abdominal aorta (Acute) Thrombocytopenic disorder (Acute) Macular degeneration (Acute) Vitamin D deficiency (Acute) Coronary artery disease (Chronic) Generalized muscle weakness (Acute) Acute UTI (Acute) Multiple falls (Acute) Anticoagulated (Acute) Atrial flutter (Acute) Medical History Left-sided epistaxis Aortic insufficiency Ascending aorta dilation Seborrheic keratoses Neoplasm of unspecified behavior of bone, soft tissue, and skin Spinal stenosis, lumbar region, with neurogenic claudication Cholelithiasis Hiatal hernia HTN (hypertension) Splenic lesion GERD (gastroesophageal reflux disease) BPH w/o urinary obs/LUTS Impaired fasting glucose Anxiety about health Hyperlipidemia Aortic valve regurgitation Anxiety History of tobacco use Erectile dysfunction Spinal stenosis, cervical region LLQ abdominal pain Myelopathy Surgical History Repair of inguinal hernia bilateral Colonoscopy - [facility] (09/02/17) Social History Smoking/Tobacco Use Status: Former Tobacco Use Quit Date: 08/31/78 Tobacco: How many years used: 20 Smoking risk assessment performed?: Yes Alcohol Intake: current Alcohol Intake frequency: 0-2 drinks per day Alcohol type: hard liquor Drug use: Never Substance use type: does not use Housing: house What is your relationship status?: Panel score (0-1 are the most socially isolated patients): 1 What type of physical activity do you participate in: other Details: stationary cycle Duration: 15-30 minutes/day Frequency: daily Do you feel safe at home: Yes Do you feel safe in your relationship?: Yes Exam Narrative Exam Narrative: Tall thin elderly gentleman laying in bed. Awake. Somewhat restless. Does not participate in conversation. Knows he is in [facility] and in the hospital. Loses focus and looks off to the right. Results Last Vital Signs Temp 36.7 C 08/16/24 06:09 Pulse 60 08/16/24 06:09 Resp 15 08/16/24 06:09 BP 132/61 08/16/24 06:09 Pulse Ox 93 08/16/24 06:09 Labs 08/16/24 08:05 08/16/24 08:05 Labs: Laboratory Results - last 24 hr 08/16/24 08:05 WBC 6.37 RBC 4.39 Hgb 12.6 L Hct 38.4 L MCV 88 MCH 28.7 MCHC 32.8 RDW 14.0 Plt Count 124 L MPV 8.9 Immature Gran % 0.8 Neutrophils % 75.2 Lymphocytes % 9.6 Monocytes % 11.6 Eosinophils % 2.2 Basophils % 0.6 Nucleated RBC % 0.0 Absolute Neutrophils 4.79 Absolute Lymphocytes 0.61 L Absolute Monocytes 0.74 Absolute Eosinophils 0.14 Absolute Basophils 0.04 Sodium 142 Potassium 4.4 Chloride 104 Carbon Dioxide 28.9 Anion Gap 9.1 BUN 15 Creatinine 1.1 Est GFR (CKD-EPI 2020) 66.19 Glucose 120 H Calcium 8.8 Time Spent Time Spent with Patient Time Spent(min): 75
[2024-08-16 10:52] VITALS: BP 128/53; PULSE 62; RESP 16; TEMP 37.1; O2SAT 91
--- NOTE | 2024-08-16 12:28 | W.PM.PROGNOT ---
Date of Service Date of service: 08/16/24 Time of Service: 12:28 Assessment and Plan Assessment and plan (1) Atrial flutter: Status: Acute Assessment and plan: Pt is on eliquis 5mg po bid. HR is currently 60 (2) Gross hematuria: Status: Acute Assessment and plan: consult to Urology placed Assessment and plan: He just had an IV contrast load with his CT angiogram, so we will ask for a renal ultrasound. Cystoscopy will likely be needed at some point, but the anesthesia recommendations here at our [facility] are such that he is not in anesthesia candidate for at least 6 months after his stroke. We will use hand irrigation to try to keep his catheter from clotting off. The hematuria certainly could be from a combination of catheter trauma and anticoagulation. He does have a remote smoking history, and as far as I can tell, he has never had a cystoscopy, so we cannot completely rule out a bladder tumor at this point. He does have a history of urinary tract infections. A urine culture has been sent although his initial UA from the emergency department only showed rare bacteria (3) BPH (benign prostatic hyperplasia): Status: Chronic Assessment and plan: as above (4) Generalized muscle weakness: Status: Acute Assessment and plan: plan is for a short stent in rehab for strengthening (5) Cerebrovascular accident (CVA): Status: Acute Assessment and plan: This is only a potential diagnosis at this point. MRI is pending. Will add asa to his eliquis and statin (6) Spinal stenosis, lumbar region, with neurogenic claudication: Status: Acute Assessment and plan: noted, certainly a confounder in evaluating for CVA by physical exam Subjective Subjective Interval history since last seen: pt seen and examined in his room this am. Mental status has improved. POC d/w pt as well as who was at bedside. POC also discussed with bedside nurse during MDR. Exam Narrative Exam Narrative: Head eyes ears nose and throat: Normocephalic atraumatic mucous membranes moist oropharynx is clear Neck: No lymphadenopathy no JVD no thyromegaly Cardiovascular: Regular rate and rhythm no murmur rubs or gallop Lungs: Clear to auscultation with good air exchange Abdomen: Soft nontender nondistended bowel sounds active Extremities: 1+ lower extremity edema bilaterally Neurologic: Cranial nerves II through XII intact as tested. Reflexes in upper lower extremity normal as tested patient has a symmetrical smile is able to raise his eyebrows. Patient does have chronic left lower extremity weakness Objective Last Vital Signs Temp 37.1 C 08/16/24 10:52 Pulse 62 08/16/24 10:52 Resp 16 08/16/24 10:52 BP 128/53 L 08/16/24 10:52 Pulse Ox 91 L 08/16/24 10:52 Laboratory Results - last 24 hr 08/16/24 08:05 WBC 6.37 RBC 4.39 Hgb 12.6 L Hct 38.4 L MCV 88 MCH 28.7 MCHC 32.8 RDW 14.0 Plt Count 124 L MPV 8.9 Immature Gran % 0.8 Neutrophils % 75.2 Lymphocytes % 9.6 Monocytes % 11.6 Eosinophils % 2.2 Basophils % 0.6 Nucleated RBC % 0.0 Absolute Neutrophils 4.79 Absolute Lymphocytes 0.61 L Absolute Monocytes 0.74 Absolute Eosinophils 0.14 Absolute Basophils 0.04 Sodium 142 Potassium 4.4 Chloride 104 Carbon Dioxide 28.9 Anion Gap 9.1 BUN 15 Creatinine 1.1 Est GFR (CKD-EPI 2020) 66.19 Glucose 120 H Calcium 8.8 PAWSS Have you Been Recently Intoxicated or Drunk Within the Last 30 days?: No Have you Ever Experienced Previous Episodes of Alcohol Withdrawal?: No Have you ever Experienced Withdrawal Seizures?: No Have you ever Experienced Delirium Tremens(DT)s?: No Have you ever undergone Alcohol Rehabilitation Treatment (i.e, inpt ot outpatient treatment programs)?: No Have you ever Experienced Blackouts?: No Have you ever Combined Alcohol with other Downers within the last 90 days?: No Have you ever Combined Alcohol with any other Substance of Abuse during the last 90 days?: No Positive Blood Alcohol level on Presentation? [PCS.BAL]: No Evidence of Increased Autonomic Activity (i.e. HR>120, tremor, sweating, agitation, nausea)?: No Result: 0 Time Spent with Patient Time Spent with Patient: 25-34 minutes Time was spent: preparing to see the patient(eg.review tests), obtaining and/or reviewing separately otained hiistory, ordering medications,tests, procedures, referring, communicating with other health critical care specialist, indepentently interpreting results, counseling the patient and care coordination
--- NOTE | 2024-08-16 13:01 | W.SPSTP ---
Date of service: 08/16/24 Time of Service: 13:02 Subjective Marquis was contacted in his room this date, seated upright in chair, with his and daughter present during noon meal. Oriented to self, place, situation. Not oriented to exact date/day of week. Noting no hallucinations or major confusion this date. Objective/Assessment/Plan Objective Treatment Techniques & Outcomes: PO Trials Assessed: IDDSI 0 Thin Liquids (tea via cup, water) IDDSI 5 Puree Solid (mashed potatoes) IDDSI 5 Minced and Moist Solid (pork with gravy, brocolli minced) IDDSI 7 Regular Solid (abe cracker) Oral Phase Findings: Mild prolonged mastication Pt spontaneously using liquid wash. No pocketing Pharyngeal Phase Findings: Swallow initiation appearing prompt with good hyolaryngeal elevation. No overt coughing or breathing changes. Throat clearing?intermittent, appears increased with fast rate regardless of texture. Restless movements may be contributing. Goals: Community Organizer Goals: Patient will remain free from aspiration-related illness, malnutrition, and dehydration. Short Term Goals: Patient will participate in ongoing diagnostic treatment addressing areas of speech/language/cognition as indicated pending MRI findings/patient presentation. PENDING: MRI to be completed this afternoon. Patient will tolerate L5 minced moist Diet and Thin liquids without overt s/s aspiration across 2/2 visits. GOAL MET x2 (08/15 & 08/16) Patient will tolerate PO trials for consideration of diet upgrade without overt s/s aspiration across 2/2 visits. IN PROGRESS: Pt tolerated regular solid trials (cracker) this date, will trial Soft/Bite size diet overnight with increase focus on oral care and aspiration precautions and re-assess tomorrow. Assessment Marquis was seen for dysphagia follow-up and consideration of diet upgrade this date in setting of improved mental status (pt was given medication in preparation for MRI yesterday which increased restlessness/delirium/confusion, now improved). Patient demonstrated improved mental status this date and was able to participate in self-feeding this but did require some assistance and cueing due to discoordination and mild impulsivity. Today he demonstrated occasional intermittent throat clearing with minced/moist textures as well as with regular solids (crackers). He is still considered a heightened risk for aspiration given these observations/behaviors, however, per family, throat clear is largely consistent with baseline presentation. HEALTH PROMOTION SPECIALIST to continue to follow for consideration of further diet upgrade and continued diagnostic treatment in areas of speech/language/cognition as indicated based on patient presentation/repeat MRI findings. Diet Recommendations: SOLIDS: 6-Soft & Bite Size Solids LIQUIDS: 0-Thin Liquids MEDICATIONS: Whole (if small) or crushed in puree solid RISK MANAGEMENT: HOB upright as tolerated; upright for all PO intake. Encourage physical mobility as tolerated. Oral hygiene before/after PO intake using friction with toothbrush on all oral structures as tolerated Level of Assistance/Supervision: 1:1 close supervision for all PO intake, Assistive feeding as needed by trained staff/family PO intake only when awake/alert? Strategies/Adaptations/Assistive Equipment: Reduce auditory and/or visual distractions when eating Provide verbal and/or visual cues to use recommended strategies Small sips and bites when eating, Slow rate of intake Posture/Positioning Needs: Maintain upright position at least 30 minutes after meals Plan Plan: Frequency: 2-3x/week for 1-2 weeks TOTAL TIME: 25 Minutes 12:00-12:25
[2024-08-16 15:11] VITALS: BP 152/74; PULSE 86; RESP 22; TEMP 37.3; O2SAT 94
--- NOTE | 2024-08-16 17:15 | CHAPLAIN ---
I visited with Lucho this evening. He was in bed. He had several visitors today, but no one was with him at the time of my visit. I explained my role and offered support. Lucho did not seem interested in further conversation. I will try to catch up with his tomorrow. According to the Palliative note Lucho attends [employer]. I did not ask him about which [employer] he is connected to.
--- NOTE | 2024-08-16 17:29 | PDOC.CMPRO ---
Date of service: 08/16/24 Time of Service: 14:25 Care Management Progress Note Progress Note Text Progress Note Text: Marquis was lying in bed when CM met with him and his , Pili today. Marquis was more alert, responded hello and good- bye today. Pili stated that he has been talking minimally today, better than yesterday. He was OOB to the chair today, and while he was tired from that event, he seemed to enjoy it. Marquis received bed offers today from [facility] and [facility] and also [facility]. These offers were discussed with Pili, and they would like to take the [facility] offer, as it is much closer to home and also to all of her children. [facility]. [facility] was notified of the acceptance, and it was made clear that he is not quite medically ready, but should be within the next day or 2. Discharge Potential Discharge Needs: PCP F/U Appt and Other (SNF) Anticipated Barriers to Discharge: None Identified Patient/Family Education Needs: Review discharge instructions, discuss Ask Me Three Transportation: Other (transportation will be determined by his physical status and by his disposition. ) Plan: Anticipate that Lucho will be transferred to SNF for rehab/straightening once he is medically stable. He will f/u with the facility provider and continue per his plan of care. CM will continue to follow. SDOH(Care Management) Screening Will the Patient Participate in the Screening?: Unable to obtain Do you worry about having a steady place to live?: no In the past 12 months, have you had to go without electric, gas, oil or water in your home?: no Have you or anyone in your house had to go without enough food to eat?: no Has lack of transportation kept you from medical appointments or from doing things needed for daily living?: no Has anyone in your support network made you feel unsafe for any reason?: no Social Determinants of Health Comments(SDOH Details): Obtained by , pt unable to answer at this time
[2024-08-16 19:13] VITALS: BP 131/50; PULSE 86; RESP 17; TEMP 37.2; O2SAT 95
[2024-08-16] MEDS: Tamsulosin 0.4 MG CAPCR 0.8 MG PO (20:34)
[2024-08-16] MEDS: Senna TAB 1 TAB PO (20:34)
[2024-08-16] MEDS: Polyethylene Glycol 3350 17 GM PACKET PO (20:34)
[2024-08-16] MEDS: Docusate Sodium 100 MG CAP PO (20:34)
[2024-08-16] MEDS: Mirtazapine 15 MG TAB 7.5 MG PO (20:34)
[2024-08-16] MEDS: Rosuvastatin 20 MG TAB PO (20:34)
[2024-08-16 22:30] VITALS: BP 162/67; PULSE 84; RESP 15; TEMP 37.1; O2SAT 93
[2024-08-17 07:43] VITALS: BP 140/66; PULSE 88; RESP 16; TEMP 37; O2SAT 95
[2024-08-17] MEDS: Sertraline 50 MG TAB PO (07:47)
[2024-08-17] MEDS: Baclofen 10 MG TAB 20 MG PO (07:47)
[2024-08-17] MEDS: Apixaban 5 MG TAB PO ×2 (07:47→21:05)
[2024-08-17] MEDS: Aspirin E.C. 81 MG TABEC PO (07:47)
[2024-08-17] MEDS: Normal Saline Flush 10 ML SYR IVP ×3 (07:48→21:05)
[2024-08-17 11:12] VITALS: BP 100/55; PULSE 89; RESP 16; TEMP 36.7; O2SAT 94
--- NOTE | 2024-08-17 11:48 | PT.INTREAT ---
PT Notes Visit Reasons: Cerebrovascular accident Date: 08/17/2024 PRECAUTIONS: L LE weakness from history of myelopathy. Activity as tolerated. High fall risk. Standard precautions. DO ALL TRANSFERS LEADING WITH THE GOOD R LE WITH FWW.. SUBJECTIVE: pt in recliner when approached for therapy this morning, pt agreed to participating with session, pt in recliner when approached for therapy this afternoon, agreed to participating with therapy session. OBJECTIVE: Pt visiting with and daughter, bustamante catheter in place, ? PAIN: denies VITALS: Closely monitored by nursing staff ? BED MOBILITY/TRANSFERS:? Moderate cueing provided for use of B hands as needed for support, movement sequence, AD management, and posture to reduce fall risk and minimize pain report ? Rolling L/R: min A Supine-sit:? min A ? Sit-supine:? min A? Sit-stand: min A? Stand-sit: min A ? Bed-Chair: min A ? Chair-bed: min A GAIT? Assistive Device: FWW? Weight bearing: FWB Assist: moderate assist ? Distance:? (am) 20'x2 from recliner to door taking seated rest break in between distances (pm) 20'x2 from recliner to door taking seated rest break in between distances? Deviation: L LE drags and unable to advance forward requiring max A to move forward. Asymmetric step length and height. Maximal cueing needed for posture, safety, directional change, AD management and limb advancement.? ? THERA ACT: Worked on trunk mobilization utilizing functional activities working on rotation, trunk lateral flexion, flexion and extension back to neutral placing while working on ability to estimate distance from one surface to another transferring toiuletry items from basin onto table and vice versa. Rowing activity utilizing B UE and trunk flexion extension with resistance placed towards trunk extension and B UE flexion x 10. THERA EX: AROM for RLE/AAROM for LLE SAQ 90x6xuo, Knee extension 38x3sow, Hip abdudction [id number] ? ASSESSMENT:? Pt tolerated activity well, pt able to reposition in recliner requiring min A, pt situated in recliner after morning session to get pt seated for lunch. pt stayed in recliner after afternoon session. PLAN: Patient to be seen 1-2x/day 7 days a week for 1 week for neuromuscular re-education, progressive strengthening, balance retraining, and functional mobility retraining to facilitate return to prior level of function. DISCHARGE RECOMMENDATION: [] Home with no services [] [] Home with services [specify] [] Home with outpatient PT [] [X] SNF for continued rehabilitation. Patient will benefit from halfway facility placement for continued skilled physical therapy services in order to progress mobility level, strength, and balance in preparation for a safe discharge to home. [] Non Destructive Evaluation Manager Care [] [] SNF versus LTC based on ability to participate and progress [] TREATMENT CODE/TIME: 94351s5 15 minutes, [id number] 10 minutes (11:25-11:50am) [id number] 15, [id number] 10 minutes (1:20-1:45pm)
--- NOTE | 2024-08-17 14:06 | W.PM.PROGNOT ---
Date of Service Date of service: 08/17/24 Time of Service: 14:07 Assessment and Plan Assessment and plan (1) Atrial flutter: Status: Acute Assessment and plan: Pt is on eliquis 5mg po bid. HR is currently 60 (2) Gross hematuria: Status: Acute Assessment and plan: consult to Urology placed Assessment and plan: He just had an IV contrast load with his CT angiogram, so we will ask for a renal ultrasound. Cystoscopy will likely be needed at some point, but the anesthesia recommendations here at our [facility] are such that he is not in anesthesia candidate for at least 6 months after his stroke. We will use hand irrigation to try to keep his catheter from clotting off. The hematuria certainly could be from a combination of catheter trauma and anticoagulation. He does have a remote smoking history, and as far as I can tell, he has never had a cystoscopy, so we cannot completely rule out a bladder tumor at this point. He does have a history of urinary tract infections. A urine culture has been sent although his initial UA from the emergency department only showed rare bacteria (3) BPH (benign prostatic hyperplasia): Status: Chronic Assessment and plan: as above (4) Generalized muscle weakness: Status: Acute Assessment and plan: plan is for a short stent in rehab for strengthening (5) Cerebrovascular accident (CVA): Status: Acute Assessment and plan: This is only a potential diagnosis at this point. MRI is pending. Will add asa to his eliquis and statin 08/17/[address] both do not show any signs of a CVA. Pt did NOT have a CVA Patient Name: Lucho Soriano Unit #: [id number] Loc: [place] Ordering Provider: Analy Zendejas NP Status: ADM IN Primary Care Provider: Patience Alvarez M.D. Date of Exam: 05/18/23 Sex: M Admission Date: 05/17/23 : 1940 Age: 83 APPROVED REPORT EXAM: Comprehensive 2D, Doppler, and color-flow Echocardiogram Patient Location: In-Patient Room/Bed: 229 Supervisor Modern Languages: Stacie Miranda RDCS (AE) Indications: A Flutter, Elevated troponin, Weakness Limited follow up to echo done 05/12/23 Other Information Study Quality: Good Conclusion Normal left ventricular wall thickness and chamber size. Ejection fraction is 50 to 55%. There are no segmental wall motion abnormalities Mildly dilated left atrium Overall the echocardiogram is unchanged compared to one done May 12, 2023 Wall motion Left Ventricle The overall left ventricular systolic function appears normal. There are no segmental wall motion abnormalities Ejection fraction 50 to 55% Pericardium There is no pericardial effusion. Auto EF LV EDV T2C664.9 mLLV EDV M8F715.3 mLLV EDV BP123.2 mL LV ESV A4C65.4 mLLV ESV A2C55.1 mLLV ESV BP60.7 mL LVEF(%) A4C48.9 %LVEF(%) A2C50.5 %LVEF(%) BP50.8 % LV SV A4C62.5 mlLV SV A2C56.2 mlLV SV BP62.6 ml LV CO A4C5.3 L/minLV CO A2C4.9 L/minLV CO BP5.1 L/min HR A4C85.51 BPMHR A2C87.17 BPMLV EDV Index (BP) (6) Spinal stenosis, lumbar region, with neurogenic claudication: Status: Acute Assessment and plan: noted, certainly a confounder in evaluating for CVA by physical exam Subjective Subjective Interval history since last seen: Pt seen and examined in his room this afternoon. Pt states that he feels weak but otw without complaint. POC d/w pt and who was at bedside. POC also discussed with bedside nurse at [facility]. Exam Narrative Exam Narrative: Head eyes ears nose and throat: Normocephalic atraumatic mucous membranes moist oropharynx is clear Neck: No lymphadenopathy no JVD no thyromegaly Cardiovascular: Regular rate and rhythm no murmur rubs or gallop Lungs: Clear to auscultation with good air exchange Abdomen: Soft nontender nondistended bowel sounds active Extremities: 1+ lower extremity edema bilaterally Neurologic: Cranial nerves II through XII intact as tested. Reflexes in upper lower extremity normal as tested patient has a symmetrical smile is able to raise his eyebrows. Patient does have chronic left lower extremity weakness Objective Last Vital Signs Temp 36.7 C 08/17/24 11:12 Pulse 89 08/17/24 11:12 Resp 16 08/17/24 11:12 BP 100/55 L 08/17/24 11:12 Pulse Ox 94 08/17/24 11:12 PAWSS Have you Been Recently Intoxicated or Drunk Within the Last 30 days?: No Have you Ever Experienced Previous Episodes of Alcohol Withdrawal?: No Have you ever Experienced Withdrawal Seizures?: No Have you ever Experienced Delirium Tremens(DT)s?: No Have you ever undergone Alcohol Rehabilitation Treatment (i.e, inpt ot outpatient treatment programs)?: No Have you ever Experienced Blackouts?: No Have you ever Combined Alcohol with other Downers within the last 90 days?: No Have you ever Combined Alcohol with any other Substance of Abuse during the last 90 days?: No Positive Blood Alcohol level on Presentation? [PCS.BAL]: No Evidence of Increased Autonomic Activity (i.e. HR>120, tremor, sweating, agitation, nausea)?: No Result: 0 Time Spent with Patient Time Spent with Patient: 25-34 minutes Time was spent: preparing to see the patient(eg.review tests), obtaining and/or reviewing separately otained hiistory, ordering medications,tests, procedures, referring, communicating with other health animal care supervisor, indepentently interpreting results, counseling the patient and care coordination
--- NOTE | 2024-08-17 14:14 | W.SPSTP ---
Date of service: 08/17/24 Time of Service: 12:30 Subjective Marquis was contacted in his chair at bedside this date for further speech/cog screening. Patient's reports she feels his speech and cognition are largely back to normal at this time. Patient endorses difficulty with memory, states he feels a little out of it but better than he was. His states He seems a little more tired than usual. Repeat MRI was done yesterday and no acute CVA was identified. Objective/Assessment/Plan Objective Treatment Techniques & Outcomes: [place] Mental Status Examination (SLUMS) Orientation/Attention: 23 Calculation/Registration: 10/31 Category Namin3 Delayed Recall: 35 (=1 with cue) Digit Span: 0/2 (Pt recalls digits but transposes some numbers) Clock Draw: 0/4 (see below) Visual Spatial: 1/2 (unable to decide which figure is largest) Story Recall with Executive Function: /8 Total score: 15/30 Speech Automatics: WFL Articulation: Largely WFL in conversation, mildly imprecise at times but complicated by low intensity and fatigue. Phonation: Mild breathiness and low vocal intensity noted across all tasks. Patient is able to increase volume with cueing for more normal vocal quality and higher intensity. DDK: AMRs' are WFL. SMR's are discoordinated and inconsistent. Some difficulty with task comprehension, but difficulty remains even after several direct models. Also question role of hearing loss. Cranial nerve assessment was also repeated this date without any notable/new findings. PO Trials Assessed: IDDSI 0 Thin Liquids (tea via cup, water) IDDSI 5 Puree Solid (mashed potatoes,squash) IDDSI 5 Minced and Moist Solid (turkey minced, with gravy ) Oral Phase Findings: WFL this date, however Nursing reporting difficulty with pocketing and oral clearance of mac and cheese (L6) which was served for dinner last night. Pharyngeal Phase Findings: Swallow initiation appearing prompt with good hyolaryngeal elevation. No overt coughing or breathing changes. Throat clearing?intermittent, appears increased with fast rate regardless of texture. Goals: Group Home Goals: Patient will remain free from aspiration-related illness, malnutrition, and dehydration. Short Term Goals: Patient will participate in ongoing diagnostic treatment addressing areas of speech/language/cognition as indicated pending MRI findings/patient presentation. See above regarding speech/cognition. Patient will tolerate L5 minced moist Diet and Thin liquids without overt s/s aspiration across 2/2 visits. Patient will tolerate PO trials for consideration of diet upgrade without overt s/s aspiration across 2/2 visits. Assessment Patient continues to tolerate Minced/Moist solids and Thin liquids with only occasional throat clearing. However, I was unable to observe current ordered diet of L6 Soft solids. Per nursing, patient was served L6 Mac and Cheese last night and demonstrated pocketing and delayed/disorganized oral transit. This date, tray was delivered without any L6 items on it despite L6 diet order in place and due to time constraints I was unable to procure upgraded textures to trial with him. Earlier yesterday, patient did tolerate regular solids in session with this clinician with only some mild prolonged mastication and without any pocketing or significant residue. Will re-assess solids tolerance tomorrow. Question if fluctuating mental status may contribute to variable performance. Patient has reportedly been tolerating meds crushed and whole (as needed) in puree. May benefit from MBSS, however, at this time there are issues with fluoroscopy equipment still awaiting resolution. Regarding cognition, while he scored overall very low (15/30 is suggestive of dementia), there were islands of clarity throughout the course of the test. For example he was able to easily perform multi-step math problems accurately and rapidly, but unable to arrange numbers on a clock. Possible visuo-spatial processing difficulty warranting further examination and certainly some significant executive function deficits. Patient is also with some low task persistence. He may benefit from more robust testing procedure (e.g., CLQT or RBANS) if he is to remain inpatient to further characterize deficits. Pending progress he will benefit from SNF placement. Plan Plan: 2-3x weekly for 1-2 wks Recommendations Additional Notes: Diet Recommendations: SOLIDS: 6-Soft & Bite Size Solids LIQUIDS: 0-Thin Liquids MEDICATIONS: Whole (if small) or crushed in puree solid RISK MANAGEMENT: HOB upright as tolerated; upright for all PO intake. Encourage physical mobility as tolerated. Oral hygiene before/after PO intake using friction with toothbrush on all oral structures as tolerated Level of Assistance/Supervision: 1:1 close supervision for all PO intake, Assistive feeding as needed by trained staff/family PO intake only when awake/alert? Strategies/Adaptations/Assistive Equipment: Reduce auditory and/or visual distractions when eating Provide verbal and/or visual cues to use recommended strategies Small sips and bites when eating, Slow rate of intake Posture/Positioning Needs: Maintain upright position at least 30 minutes after meals Total Time Spent: 25 min
[2024-08-17 15:09] VITALS: BP 106/51; PULSE 87; RESP 16; TEMP 36.9; O2SAT 95
--- NOTE | 2024-08-17 16:15 | CHAPLAIN ---
I spoke with Lucho's today. She said he's having a better day today, and ate most of his lunch. Lucho was sitting up in the recliner. I explained my role to Lucho's and offered support.
--- NOTE | 2024-08-17 18:11 | CMPROGNOTE_ITS ---
Date of service: 08/17/24 Time of Service: 13:00 Care Management Progress Note Progress Note Text Progress Note Text: Marquis was up in the chair when CM met with him today. His , Pili, was present. Marquis was doing much better today. He was able to hold a conversation, although his words are still a bit limited, and his told CM that Marquis had correctly done a crossword puzzle today. Marquis had also worked with PT and was able to ambulate with a max assist of 1 for a short distance. Pili and Marquis are both pleased with this improvement and hope that it is a sign that he will continue to improve with more rehab. Marquis was accepted at [facility], and is expected to be transferred there tomorrow. Discharge Potential Discharge Needs: PCP F/U Appt Anticipated Barriers to Discharge: None Identified Patient/Family Education Needs: Review discharge instructions, discuss Ask Me Three Transportation: RCT RCT Transportation: Wheel chair van SDOH(Care Management) Screening Will the Patient Participate in the Screening?: Unable to obtain Do you worry about having a steady place to live?: no In the past 12 months, have you had to go without electric, gas, oil or water in your home?: no Have you or anyone in your house had to go without enough food to eat?: no Has lack of transportation kept you from medical appointments or from doing things needed for daily living?: no Has anyone in your support network made you feel unsafe for any reason?: no Social Determinants of Health Comments(SDOH Details): Obtained by , pt unable to answer at this time
[2024-08-17 19:46] VITALS: BP 123/53; PULSE 87; RESP 16; TEMP 37; O2SAT 94
[2024-08-17] MEDS: Mirtazapine 15 MG TAB 7.5 MG PO (21:05)
[2024-08-17] MEDS: Docusate Sodium 100 MG CAP PO (21:05)
[2024-08-17] MEDS: Senna TAB 1 TAB PO (21:05)
[2024-08-17] MEDS: Rosuvastatin 20 MG TAB PO (21:05)
[2024-08-17] MEDS: Polyethylene Glycol 3350 17 GM PACKET PO (21:05)
[2024-08-17] MEDS: Tamsulosin 0.4 MG CAPCR 0.8 MG PO (21:05)
[2024-08-17 23:37] VITALS: BP 137/65; PULSE 83; RESP 15; TEMP 36.6; O2SAT 93
[2024-08-18 03:04] VITALS: BP 136/58; PULSE 84; RESP 16; TEMP 36.8; O2SAT 93
[2024-08-18 07:03] LABS: Abs Immature Grans 0.06 10^3/uL (0.0-0.06); Absolute Basophil Count 0.05 10^3/uL (0.0-0.2); Absolute Eosinophil Count 0.23 10^3/uL (0.0-0.7); Absolute Lymphocyte Count 0.84 10^3/uL (1.2-3.4); Absolute Monocyte Count 0.56 10^3/uL (0.1-0.8); Absolute Neutrophil Count 3.71 10^3/uL (1.2-6.7); Basophils % 0.9 %; Eosinophils % 4.2 %; HCT 37.3 % (40.0-50.0); HGB 12.5 g/dL (13.5-17.5); Immature Grans % 1.1 %; Lymphocytes % 15.4 %; MCH 29.1 pg (27.0-33.0); MCHC 33.5 % (32.0-36.0); MCV 87 fL (80-95); MPV 9.7 fL (8.0-11.0); Monocytes % 10.3 %; Neutrophils % 68.1 %; Platelet Count 123 10^3/uL (130-400); RDW 14.2 % (11.8-14.1); RDW-SD 44.7 fL; WBC 5.45 10^3/uL (4.4-10.8)
[2024-08-18 07:33] LABS: ALT 20 U/L (16-63); AST 27 U/L (15-37); Albumin 3.3 g/dL (3.4-5.0); Alkaline Phosphatase 108 U/L (46-116); Anion Gap 6.4 mmol/L (3-11); BUN 35 mg/dL (7-18); Bilirubin, Total 0.73 mg/dL (0.2-1.0); CO2 28.6 mmol/L (21.0-32.0); CREATININE 1.2 mg/dL (0.70-1.30); Calcium 8.6 mg/dL (8.5-10.1); Chloride 106 mmol/L (98-107); Estimated GFR 59.63 (mL/min/1.73m2); Glucose 115 mg/dL (74-106); Potassium 4.4 mmol/L (3.5-5.1); Sodium 141 mmol/L (136-145); Total Protein 7.2 g/dL (6.4-8.2)
[2024-08-18 08:03] VITALS: BP 140/59; PULSE 85; RESP 20; TEMP 36.8; O2SAT 94
[2024-08-18] MEDS: Normal Saline Flush 10 ML SYR IVP (08:54)
[2024-08-18] MEDS: Apixaban 5 MG TAB PO (08:54)
[2024-08-18] MEDS: Baclofen 10 MG TAB 20 MG PO (08:54)
[2024-08-18] MEDS: Aspirin E.C. 81 MG TABEC PO (08:54)
[2024-08-18] MEDS: Sertraline 50 MG TAB PO (08:55)
--- NOTE | 2024-08-18 09:13 | PTTR_ITS ---
PT Notes Visit Reasons: Cerebrovascular accident Inpatient Physical Therapy Treatment Note [facility] Date: 08/18/2024 PRECAUTIONS: L LE weakness from history of myelopathy, L LE AFO and orthopedic shoes on when OOB. Activity as tolerated. High fall risk. Standard precautions. DO ALL TRANSFERS LEADING WITH THE GOOD R LE WITH FWW.. SUBJECTIVE: and another relative present in room when PT came in for session which patient agreed to. said that patient has had his brace and his orthoepdic shoes for about 20 years now without having been replaced. OBJECTIVE: Patient seated on bedside recliner. ? PAIN: None reproted VITALS: Closely monitored by nursing staff ? BED MOBILITY/TRANSFERS:? Minimal cueing provided for use of B hands as needed for support, movement sequence, AD management, and posture to reduce fall risk and minimize pain report ? Sit-stand: minimal assist x 2 ? Stand-sit: minimal assist x 2 ? Bed-Chair: minimal assist x 2 ? Chair-bed: minimal assist x 2 ? ? ? GAIT? Assistive Device: FWW, L AFO, orthopedic shoes ? Weight bearing: FWB Assist: moderate assist ? Distance:? 40 steps + 40 steps ? Deviation: L LE drags and unable to advance forward due to suspected new onset weakness superimposed on pre-existing weakness. Asymmetric step length and height. Maximal cueing needed for adequate weight distribution, posture, s afety, directional change, AD management and limb advancement.? ? THERA ACT: Worked on trunk mobilization utilizing functional activities working on rotation, trunk lateral flexion, flexion and extension back to neutral placing while working on ability to estimate distance from one surface to another transferring toiuletry items from basin onto table and vice versa. Rowing activity utilizing B UE and trunk flexion extension with resistance placed towards trunk extension and B UE flexion x 10. THERA EX: Worked on sit<>stand movement transitions using B hands for support against arm rests with moderate cueing for trunk flexion prior to ascent and slowed trunk extesion prior to descent. Patient was able to complete x 4 10 reps for 2 sets with minimal shortness of breath. PT supporting upper back for slowed descent and B LE for increased stability throughout. ? ASSESSMENT:? Observed increasing activity tolerance with minimal shortness of breath and without report of headache, chest pain and lightheadedness. With use of L AFO and B orthopedic shoes as well as with assist of 2 along with wheelchair follow of , patient was able to tolerate a longer distance today. Patient requires new order from for reassessment and refitting of L AFO and orthopedics hoses as [facility] has not had any since over 10 eayrs ago. L AFO is ow very worn out and loose on patient's leg and will need immediate replacement. MD was requested to write new order to facilitate this. Patient with chronic L LE weakness due to myelopathy from pre-existing spinal stenosis with repeated falls ( said 4-5x in the past year), who was admitted due to stroke-like symptoms. Head and neck CTA did not show any CVA/TIA. Patient is scheduled to have MRI and was assisted by this PT to transfer onto stretcher for the MRI testing. Noted significant weakness on the L LE and L UE with L LE more affected than the L UE, unsure of how much was from previous myelopathic pathology vs new deficit from suspected CVA. Patient required 2 assist for transfers and needed moderate to maximal cueing for safety. Impulsive with poor safety awareness. Risk for falls high at this time and will highly benefit from SNF placement. PLAN: Patient to be seen 1-2x/day 7 days a week for 1 week for neuromuscular re-educa tion, progressive strengthening, balance retraining, and functional mobility retraining to facilitate return to prior level of function. DISCHARGE RECOMMENDATION: [] Home with no services [] [] Home with services [specify] [] Home with outpatient PT [] [X] SNF for continued rehabilitation. Patient will benefit from [facility] facility placement for continued skilled physical therapy services in order to progress mobility level, strength, and balance in preparation for a safe discharge to home. [] Athletic Instructor Care [] [] SNF versus LTC based on ability to participate and progress [] TREATMENT CODE/TIME: 40570 x 20 minutes for 1 unit, 18609 x 11 minutes (09:13-09:44).
[2024-08-18 11:36] VITALS: BP 105/58; PULSE 83; RESP 18; TEMP 35.9; O2SAT 95
--- NOTE | 2024-08-18 11:55 | W.PM.DS.N ---
Date of service: 08/18/24 Time of Service: 11:55 DS: Diagnosis Discharge Diagnosis (1) Atrial flutter: Status: Acute (2) Gross hematuria: Status: Acute (3) BPH (benign prostatic hyperplasia): Status: Chronic (4) Generalized muscle weakness: Status: Acute (5) Cerebrovascular accident (CVA): Status: Acute (6) Spinal stenosis, lumbar region, with neurogenic claudication: Status: Acute Discharge Plan Disposition Patient Disposition: [facility](SNF) Condition: Stable Discharge Details Reason For Visit: CVA Admit Date/Time: 08/14/24 03:12 Admit Provider: Donald De Anda Attending Provider: Donald De Anda Primary Care Provider: Patience Alvarez Hospital Course Hospital Course: This is an 8 84-year-old gentleman who was admitted for concerns about a CVA versus TIA. While the patient was here he did get CT and MRI of his brain which did not indicate any acute CVAs. Due to worsening deconditioning he was can to be admitted to acute care rehab. While he was here he did get diagnosed with gross hematuria most likely from a traumatic Hardy insertion. Patient was seen in consultation with urology who recommended three-way cath with flushing and follow-up in the outpatient setting. His bleeding was exacerbated by the fact he is on Eliquis. There is also recommendation for a follow-up cystoscopy. Home Meds and New Rx's Prescriptions: New aspirin 81 mg Tablet,Delayed Release (Dr/Ec) 81 mg PO DAILY Qty: 30 0RF docusate sodium [Colace] 100 mg Capsule 100 mg PO DAILY PRN PRN (Reason: Constipation) Qty: 30 0RF sertraline 50 mg Tablet 50 mg PO DAILY Qty: 30 0RF Continued mirtazapine 7.5 mg tablet 7.5 mg PO DAILY tamsulosin 0.4 mg capsule 0.8 mg PO HS Qty: 90 Eliquis 5 mg tablet 5 mg PO BID Qty: 180 3RF cyanocobalamin (vitamin B-12) 1,000 mcg capsule 1,000 mcg PO DAILY lisinopril 10 MG tablet 10 mg PO DAILY omeprazole 20 MG capsule,delayed release(DR/EC) 20 mg PO DAILY cholecalciferol (vitamin D3) [Vitamin D3] 2,000 UNIT capsule 1 cap PO DAILY baclofen 20 mg tablet 20 mg PO DAILY rosuvastatin [Crestor] 20 MG tablet 20 mg PO HS sertraline 50 mg tablet 50 mg PO DAILY Patient Comments: TAKE ONE TABLET BY MOUTH EVERY DAY Discharge Instructions Referrals: Jose Manzo MD [ [facility] STAFF PHYSICIAN] - Patience Alvarez MD [Primary Care Provider] - Activity:: Activity as Tolerated Equipment/Supplies:: No Equipment Needed Diet:: As Tolerated Discharge Orders Discharge Orders: Discharge Order (Routine); Ordered 08/18/24 Ordered By: Gino Alicia DS: Summary Time Spent with Patient providing and/or coordinating discharge services: Greater than 30 minutes Status at Discharge Functional status at discharge: uses cane/walker Overall status at discharge: patient is progressing back to baseline Mental Status: mental status grossly normal Speech and Movement: speech and movement normal Mood: congruent mood Affect: normal affect Quality:SDOH Health Related Social Needs: No Data to Display Exam Narrative Exam Narrative: Head eyes ears nose and throat: Normocephalic atraumatic mucous membranes moist oropharynx is clear Neck: No lymphadenopathy no JVD no thyromegaly Cardiovascular: Regular rate and rhythm no murmur rubs or gallop Lungs: Clear to auscultation with good air exchange Abdomen: Soft nontender nondistended bowel sounds active Extremities: 1+ lower extremity edema bilaterally Neurologic: Cranial nerves II through XII intact as tested. Reflexes in upper lower extremity normal as tested patient has a symmetrical smile is able to raise his eyebrows. Patient does have chronic left lower extremity weakness Psych Mental Status: mental status grossly normal Speech and Movement: speech and movement normal Mood: congruent mood Affect: normal affect DS: Data Vitals/I&O Vitals and I&O: Vital Signs Temperature 35.9 C L 08/18/24 11:36 Temperature Source Tympanic 08/18/24 11:36 Pulse 83 08/18/24 11:36 Pulse Rhythm Regular 08/14/24 04:07 Pulse 57 L 08/14/24 03:40 Respiratory Rate 18 08/18/24 11:36 Respiratory Effort Normal 08/14/24 04:07 Respiratory Depth Normal 08/14/24 04:07 Respiratory Pattern Normal 08/14/24 04:07 Blood Pressure 105/58 L 08/18/24 11:36 Blood Pressure Mean 92 08/14/24 03:31 Blood Pressure Position Sitting 08/14/24 00:10 Pulse Oximetry 95 08/18/24 11:36 Oxygen Delivery Method Room Air 08/18/24 11:36 Oxygen Flow Rate 0 08/18/24 11:36 Pain Level 0 08/18/24 03:04 Comment will inform RN of BP 08/17/24 11:12 Intake & Output 08/17/24 08/17/24 08/18/24 11:59 23:59 11:59 Intake Total 480 / 940 460 / 940 340 / 340 Output Total 400 / 525 125 / 525 125 / 125 Balance 80 / 415 335 / 415 215 / 215 Intake: IV Oral 480 / 920 440 / 920 340 / 340 Output: Urine 400 / 525 125 / 525 125 / 125 Other: Urine Color Yellow Yellow Straw [place] [facility] Urine Appearance Cloudy Clear Clear Clots Urine Odor None Strong Comment Moderate incont. void Large amount of incontinence Stool Size Moderate Stool Characteristics Soft Formed Brown Data Completed and Pending Labs on day of discharge: Labs from last 24 hours 08/18/24 06:38 WBC 5.45 RBC 4.30 L Hgb 12.5 L Hct 37.3 L MCV 87 MCH 29.1 MCHC 33.5 RDW 14.2 H Plt Count 123 L MPV 9.7 Immature Gran % 1.1 Neutrophils % 68.1 Lymphocytes % 15.4 Monocytes % 10.3 Eosinophils % 4.2 Basophils % 0.9 Nucleated RBC % 0.0 Absolute Neutrophils 3.71 Absolute Lymphocytes 0.84 L Absolute Monocytes 0.56 Absolute Eosinophils 0.23 Absolute Basophils 0.05 Sodium 141 Potassium 4.4 Chloride 106 Carbon Dioxide 28.6 Anion Gap 6.4 BUN 35 H Creatinine 1.2 Est GFR (CKD-EPI 2020) 59.63 Glucose 115 H Calcium 8.6 Total Bilirubin 0.73 AST 27 ALT 20 Alkaline Phosphatase 108 Total Protein 7.2 Albumin 3.3 L PFSH All Active Problems (Updated 08/16/24 @ 16:31 by Giovanna Oneal MD) Advanced care planning/counseling discussion (Acute) Palliative care patient (Acute) DNR (do not resuscitate) (Acute) COLST 08/16/2024: DNR/DNI, positive transfer, positive treat with IV antibiotics and IV fluids. No feeding tube Spinal stenosis, lumbar region, with neurogenic claudication (Acute) Dysarthria (Acute) Confusion (Acute) Gross hematuria (Acute) Stroke (Chronic) Cerebrovascular accident (CVA) (Acute) Prediabetes (Acute) Essential hypertension (Acute) Nicotine dependence (Acute) Atherosclerosis of coronary artery without angina pectoris (Acute) Rosacea (Acute) Diaphragmatic hernia (Acute) Left foot drop (Acute) BPH (benign prostatic hyperplasia) (Chronic) Abdominal pain (Acute) Splenomegaly (Acute) Aortic ectasia, thoracic (Acute) Chronic myelopathy (Acute) Vitamin B12 deficiency (Acute) Aneurysm of infrarenal abdominal aorta (Acute) Thrombocytopenic disorder (Acute) Macular degeneration (Acute) Vitamin D deficiency (Acute) Coronary artery disease (Chronic) Generalized muscle weakness (Acute) Acute UTI (Acute) Multiple falls (Acute) Anticoagulated (Acute) Atrial flutter (Acute) Medical History Left-sided epistaxis Aortic insufficiency Ascending aorta dilation Seborrheic keratoses Neoplasm of unspecified behavior of bone, soft tissue, and skin Spinal stenosis, lumbar region, with neurogenic claudication Cholelithiasis Hiatal hernia HTN (hypertension) Splenic lesion GERD (gastroesophageal reflux disease) BPH w/o urinary obs/LUTS Impaired fasting glucose Anxiety about health Hyperlipidemia Aortic valve regurgitation Anxiety History of tobacco use Erectile dysfunction Spinal stenosis, cervical region LLQ abdominal pain Myelopathy Surgical History Repair of inguinal hernia bilateral Colonoscopy - MAC (09/02/17) Social History Smoking/Tobacco Use Status: Former Tobacco Use Quit Date: 08/31/78 Tobacco: How many years used: 20 Smoking risk assessment performed?: Yes Alcohol Intake: current Alcohol Intake frequency: 0-2 drinks per day Alcohol type: hard liquor Drug use: Never Substance use type: does not use Housing: house What is your relationship status?: Panel score (0-1 are the most socially isolated patients): 1 What type of physical activity do you participate in: other Details: stationary cycle Duration: 15-30 minutes/day Frequency: daily Do you feel safe at home: Yes Do you feel safe in your relationship?: Yes Time Spent with Patient Time Spent with Patient: 70-84 minutes4 Time was spent: preparing to see the patient(eg.review tests), obtaining and/or reviewing separately otained hiistory, ordering medications,tests, procedures, referring, communicating with other health district manager primary care sales, indepentently interpreting results, counseling the patient and care coordination
--- NOTE | 2024-08-18 13:52 | NUR.NOTE ---
RN attempted to call and give report to [facility]. Nobody answered. will attempt to call again. AP RN Nursing Note:
--- NOTE | 2024-08-18 14:43 | PDOC.CMDIS ---
Date of service: 08/18/24 Time of Service: 14:43 LACE Index Scoring Tool Questions: Length of Stay (in days): 4 - 6 Was the patient admitted via the E.D.?: Yes Comorbidities: Cerebrovascular Disease E.D. Visits: 0 Answers: Total Score: 8 Risk of Readmission: Low Risk Care Management Discharge Plan Reason for Hospitalization: CVA Discharge Plan: Lucho will transfer to [facility] today for continued short term rehab prior to returning home. [facility] informed CM that they do not currently have a speech therapist, although they are working on a local contract to fill this position. CM discussed this with Lucoh and his , Pili, who expressed understanding and decided to move forward with admission at [facility]. He will transport via private vehicle by family. He will follow up with his PCP and discharge plan of care. He is happy to be going to rehab. Patient/Family Education Needs: Review discharge instructions and limitations, discussion of self care needs including ask me three. Services Needed at Discharge: [facility]-Way Facility ([facility]) SDOH Health Related Social Needs: No Data to Display
== END 2024-08-18 15:48 | disposition skilled nursing facility (03) | DRG 65 ==
LOC: ER 03:23 → MS 04:07
PROVIDERS: Hospitalist; Admitting Provider Student in an Organized Health Care Education/Training Program; Emergency Provider Student in an Organized Health Care Education/Training Program; PCP Family Medicine; Visit Provider Student in an Organized Health Care Education/Training Program
DX: I63.9 Cerebral infarction, unspecified (principal); I48.3 Typical atrial flutter; I10 Essential (primary) hypertension; E78.5 Hyperlipidemia, unspecified; N40.0 Benign prostatic hyperplasia without lower urinary tract symptoms; M62.81 Muscle weakness (generalized); R47.1 Dysarthria and anarthria; R41.0 Disorientation, unspecified; R29.6 Repeated falls; Z66 Do not resuscitate; M48.062 Spinal stenosis, lumbar region with neurogenic claudication; Z79.01 Long term (current) use of anticoagulants; R73.03 Prediabetes; I25.10 Atherosclerotic heart disease of native coronary artery without angina pectoris; K44.9 Diaphragmatic hernia without obstruction or gangrene; E53.8 Deficiency of other specified B group vitamins; I71.43 Infrarenal abdominal aortic aneurysm, without rupture; E55.9 Vitamin D deficiency, unspecified; I35.1 Nonrheumatic aortic (valve) insufficiency; F41.8 Other specified anxiety disorders; Z87.891 Personal history of nicotine dependence; H35.30 Unspecified macular degeneration; Z87.440 Personal history of urinary (tract) infections
CPT/HCPCS: 00123; 36415; 70496; 70498; 76498; 76770; 80048; 80053; 80061; 92526; 92610; 93005; 97110; 97112; 97161; 97530; 99222; 99291; 70551; 81003; 81015; 83735; 84484; 85025; 85610; 85730; 92523; 93010; 93306; 94760; 99232; 99239; J3490

== ENCOUNTER → 2024-08-15 09:29 | Outpatient (BNVA) | payer MEDICARE, SELFPAY | PROVIDERS: PCP Family Medicine; Referring Provider Family Medicine; Visit Provider Urology ==

== ENCOUNTER 2024-09-07 13:24 | Outpatient (REF) | payer MEDICARE, SELFPAY ==
[2024-09-07 15:03] LABS: Bilirubin Negative (Negative); Blood Negative (Negative); Clarity Clear (Clear); Glucose Negative (Negative); Ketones Negative (Negative); Leukocyte Esterase Negative (Negative); Nitrite Negative (Negative); Specific Gravity >= 1.030 (1.005-1.025); pH 6.5 (5-8)
== END 2024-09-07 13:25 | disposition home or self-care (01) ==
LOC: NCHCN 13:24
PROVIDERS: PCP Family Medicine; Visit Provider Family Medicine
DX: R35.1 Nocturia (principal)
CPT/HCPCS: 81003

== ENCOUNTER → 2024-12-02 09:12 | Outpatient (BNVA) | payer MEDICARE, SELFPAY | PROVIDERS: PCP Family Medicine; Visit Provider Internal Medicine Cardiovascular Disease | DX: I25.10 Atherosclerotic heart disease of native coronary artery without angina pectoris (principal); I48.3 Typical atrial flutter | CPT/HCPCS: 99213 ==

== ENCOUNTER → 2025-02-27 12:42 | Outpatient (BNVA) | payer MEDICARE, SELFPAY | PROVIDERS: PCP Family Medicine; Referring Provider Family Medicine; Visit Provider Nurse Practitioner Gerontology | DX: N40.0 Benign prostatic hyperplasia without lower urinary tract symptoms (principal); R31.9 Hematuria, unspecified; R35.0 Frequency of micturition; N39.42 Incontinence without sensory awareness; R39.9 Unspecified symptoms and signs involving the genitourinary system; I10 Essential (primary) hypertension; Z87.891 Personal history of nicotine dependence | CPT/HCPCS: 99215; 51798 ==

== ENCOUNTER → 2025-05-02 08:30 | Outpatient (BNVA) | payer MEDICARE, SELFPAY | PROVIDERS: PCP Family Medicine; Referring Provider Family Medicine; Visit Provider Urology | DX: R31.0 Gross hematuria (principal) | CPT/HCPCS: 52000 ==

== ENCOUNTER 2025-07-19 09:55 | Emergency (ER) | payer MEDICARE, SELFPAY ==
[2025-07-19] VITALS (33 sets, daily range): BP systolic 119–160; BP diastolic 34–75; PULSE 40–111; RESP 12–23; TEMP 37.3; O2SAT 92–97
--- NOTE | 2025-07-19 09:45 | RT.EKG_ITS ---
APPROVED REPORT Exam: Resting ECG Reason for Exam: Weakness Patient Location: E HR:81 bpm ECG Measurements Heart Rate 81 AXIS AZ [id number] P [id number] QRSd 153 QRS 51 QT 489 T 30 QTc 496 Conclusion Atrial flutter with predominant 3:1 AV block...A-rate 245, multiple Ps Right bundle branch block...QRSd>120, terminal axis(90,270) Anterolateral infarct, old...Q>40mS, abnrm ST-T, V3-V6,I,aVL Physician: Flutter, no stemi
--- NOTE | 2025-07-19 10:30 | DI.CT_ITS ---
Exam(s) CT CHEST/ABD/PEL W EXAM: CT CHEST/ABD/PEL W CLINICAL HISTORY: weakness, fall on eliquis. TECHNIQUE: Imaging Protocol: Axial computed tomography images with coronal and sagittal reformatted images were created and reviewed CONTRAST MATERIAL: Intravenous: Omnipaque 350 Contrast volume:75 mL Oral: None COMPARISON: CT CT CHEST/ABD/PEL W from 05/17/2023 FINDINGS: CHEST: LUNGS: Small area of infiltrate is noted in inferior aspect of the lateral right middle lobe, not evident on prior CT scan of May 2023.. There are few small benign fissure related nodules in the right lung noted. No significant focal findings in the left lung. No pleural effusions. MEDIASTINUM: There is no hilar nor mediastinal adenopathy. Visualized thyroid unremarkable.There is a large paraesophageal hiatal hernia again noted. CARDIAC: Heart size upper normal. Coronary artery calcification noted. Diameter of the ascending thoracic aorta is enlarged measuring 4 cm. There is no dissection. The diameter of the aortic arch and descending thoracic aorta are upper normal. OSSEOUS: No significant osseous lesions.No fractures. ABDOMEN: There is no ascites. LIVER: There are no focal hepatic lesions nor dilatation of intrahepatic ducts. GALLBLADDER/BILIARY: Is not overly distended nor edematous and there is no pericholecystic fluid. The CBD is not dilated. PANCREAS: No evidence of pancreatic mass nor dilatation of the pancreatic duct. SPLEEN: There is splenomegaly again noted. The craniocaudal measurement of the spleen is 18.5 cm and there are in numeral abnormal hypodensities in the spleen again evident. Splenic and portal veins are patent. ADRENALS: There are no significant adrenal masses. KIDNEYS: No calculi nor hydronephrosis. No solid renal masses. No cysts evident. ABDOMINAL AORTA: Abdominal aorta is calcified and atherosclerotic.. At the infrarenal level none there is an abnormal outpouching on the right side of the aorta again noted consistent with saccular aneurysm which has slightly increased from previous size, presently measuring 3.4 cm maximum diameter (previously was 3.2 cm). There is a possibly that this is a pseudoaneurysm. There is an element of generalized arterial megaly of the iliac arteries but without significant focal aneurysmal dilatation. LYMPH NODES: There is no retroperitoneal nor paraaortic adenopathy. ABDOMINAL WALL: Fat only containing right inguinal hernia evident. GI: There is no evidence of bowel obstruction. PELVIS: LYMPH NODES: There is no intrapelvic nor inguinal adenopathy. GI: No evidence of appendicitis.There is extensive diverticulosis of the sigmoid without evidence of obvious acute diverticulitis. URINARY BLADDER: No calculi nor masses evident REPRODUCTIVE: Moderately enlarged prostate. Measures 5 cm wide. OSSEOUS: No significant osseous lesions. No fractures but there is degenerative anterolisthesis L4 upon L5 Unchanged from 05/17/2023. No significant new osseous lesions evident. IMPRESSION: 1. Cholelithiasis. There is a myriad of tiny gallstones filling the gallbladder lumen. However, there is no evidence of acute cholecystitis nor dilatation biliary tree. 2. There is splenomegaly again noted and there are again noted in numerable small hypodense lesions in the spleen, probably pathologic. 3. Atherosclerotic abdominal aorta and iliac arteries. 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 Cannot exclude possibly that this is a pseudoaneurysm. 4. There is extensive sigmoid diverticulosis. No obvious acute diverticulitis. Report called by myself to ER 07/18/2025 at 1:35 p.m. RADIATION DOSE DELIVERED: 500.99mGy.cm Total DLP DATA REPOSITORY: All CT scans at this facility are submitted to the National Radiology Data Registry (NRDR) Dose Index Registry (DIR) with the [employer] (ACR). RADIATION OPTIMIZATION: All CT scans at this facility use at least one of these dose optimization techniques: automated exposure control; mA and/or kV adjustment per patient size (includes targeted exams where dose is matched to clinical indication); or iterative reconstruction.
--- NOTE | 2025-07-19 10:30 | DI.CT_ITS ---
Exam(s) CT HEAD WO EXAM: CT HEAD WO CLINICAL HISTORY: weakness, fall on eliquis. TECHNIQUE: Imaging Protocol: Axial computed tomography images with coronal and sagittal reformatted images were created and reviewed COMPARISON: No exams were available for comparison FINDINGS: There are no skull fractures. There is no fluid in the visualized paranasal sinuses. There is no evidence of intracranial hemorrhage, mass effect, or shift of midline structures. There are no extra-axial fluid collections. The ventricles are not enlarged or shifted and there is no blood within the ventricular system nor within the basal cisterns. The amount of involutional changes consistent with the patient's advanced age. There is again noted bilateral periventricular hypodensity consistent with chronic small vessel disease. Small lacune are infarct in the right periventricular white matter is unchanged. Small left supra ventricular white matter lacunar infarct is also unchanged. IMPRESSION: No acute intracranial findings on this noninfused CT scan of the brain. Chronic small-vessel white matter ischemic changes. Findings appear unchanged from CT scan of 08/14/2024. Report called by myself to ER 07/19/2025 at 12:24 p.m. RADIATION DOSE DELIVERED: 954.3mGy.cm Total DLP DATA REPOSITORY: All CT scans at this facility are submitted to the National Radiology Data Registry (NRDR) Dose Index Registry (DIR) with the [employer] (ACR). RADIATION OPTIMIZATION: All CT scans at this facility use at least one of these dose optimization techniques: automated exposure control; mA and/or kV adjustment per patient size (includes targeted exams where dose is matched to clinical indication); or iterative reconstruction.
[2025-07-19 11:04] LABS: Abs Immature Grans 0.04 10^3/uL (0.0-0.06); HCT 33.7 % (40.0-50.0); HGB 10.9 g/dL (13.5-17.5); Immature Grans % 1.1 %; MCH 27.0 pg (27.0-33.0); MCHC 32.3 % (32.0-36.0); MCV 83 fL (80-95); MPV 8.7 fL (8.0-11.0); RBC 4.04 10^6/uL (4.36-5.78); RDW 16.2 % (11.8-14.1); RDW-SD 49.8 fL; WBC 3.57 10^3/uL (4.4-10.8)
[2025-07-19 11:06] LABS: Platelet Count 81 10^3/uL (130-400)
[2025-07-19 11:21] LABS: Magnesium 2.0 mg/dL (1.6-2.6)
[2025-07-19 11:23] LABS: ALT 11 U/L (10-49); AST 21 U/L (<34); Albumin 3.9 g/dL (3.4-5.0); Alkaline Phosphatase 78 U/L (46-116); Anion Gap 7.2 mmol/L (3-11); BUN 22 mg/dL (9-23); Bilirubin, Total 1.10 mg/dL (0.2-1.2); CO2 28.8 mmol/L (20.0-31.0); Calcium 8.9 mg/dL (8.3-10.6); Chloride 103 mmol/L (98-107); Glucose 116 mg/dL (74-106); Potassium 4.0 mmol/L (3.5-5.1); Sodium 139 mmol/L (136-145); Total Protein 6.9 g/dL (5.7-8.2)
[2025-07-19 11:24] LABS: Troponin I 31 ng/L (<54)
[2025-07-19] MEDS: Normal Saline - Diluent 50 ML VIAL IJ (12:00)
[2025-07-19] MEDS: Normal Saline Flush 10 ML SYR IVP (12:01)
[2025-07-19] MEDS: Omnipaque 350 MG/ML 100 ML BTL IJ (12:01)
[2025-07-19 13:00] LABS: Troponin I 30 ng/L (<54)
[2025-07-19 13:29] LABS: Glucose Negative (Negative)
[2025-07-19] MEDS: Normal Saline 1,000 ML 125 ML IV (13:32)
[2025-07-19 13:38] LABS: C & S Indicated? No; RBC 20-50 HPF (0-2); WBC 0-2 HPF (0-5)
--- NOTE | 2025-07-19 15:12 | PT.INIE ---
PT Notes Visit Reasons: Weakness Physical Therapy Inpatient Initial Evaluation Date: 07/19/2025 Referring Doctor: Mallory Paige NP PT Orders: PT CONSULT: Eval/Treat Precautions: Fall. Standard. Activity as tolerated. L AFO on when OOB to reduce fall risk. Patient Profile/Admitting Diagnosis: Marquis is a 85-year-old male patient who presented to the ED today due to generalized weakness and desaturation episode per EMS staff down to low 70s via NC. MIKALA Tejada requested a PT consult for mobility assessment to determine whether patient can safely go home or not. PMHX: Medical History Left-sided epistaxis Aortic insufficiency Ascending aorta dilation Seborrheic keratoses Neoplasm of unspecified behavior of bone, soft tissue, and skin Cholelithiasis Hiatal hernia HTN (hypertension) Splenic lesion GERD (gastroesophageal reflux disease) BPH w/o urinary obs/LUTS Impaired fasting glucose Anxiety about health Hyperlipidemia Aortic valve regurgitation Anxiety History of tobacco use Erectile dysfunction Spinal stenosis, cervical region LLQ abdominal pain Myelopathy Surgical History Repair of inguinal hernia bilateral Colonoscopy - MAC (09/02/17) Social History/Home Situation: Lives with in a private home. Modified independent with FWW for transfers and indoor ambulation. Equipment Owned/DME: FWW, 4WW, wheelchair Subjective: Denied headache, chest pain, and lightheadedness throughout session. Fatigued, but agreeable to attempting walking with support of a second person. believed that patient may just have been dehydrated. She added that he fell yesterday while she was out on an errand. Patient stated that he did not hit his head. Objective: General Observation: Sitting on bedside chair. Nurse Oshea helped with changing patient 's wet brief prior to moving patient OOB. Mental Status: Alert and oriented as to person, place, time, and purpose. Able to pay attention, focus, and respond appropriately. Pain: None reported Vital Signs: On telemetry monitoring. ROM: Right Upper Extremity: Shoulder Flexion lacks the last 50% of AROM. Shoulder abduction lacks the last 50% of AROM. Elbow flexion WFL. Wrist flexion WFL. Functional opening and closing of hand WFL. Left Upper Extremity: Shoulder Flexion lacks the last 50% of AROM. Shoulder abduction lacks the last 50% of AROM. Elbow flexion WFL. Wrist flexion WFL. Functional opening and closing of hand WFL. Right Lower Extremity: Hip flexion WFL. Hip abduction WFL. Knee flexion WFL. Ankle dorsiflexion WFL. Ankle plantarflexion WFL. Left Lower Extremity: Hip flexion lacks the last 50% of AROM. Hip abduction lacks the last 50% of AROM. Knee flexion 60 to 90 degrees. Knee extension -60 degrees. Ankle dorsiflexion absent. Ankle plantarflexion absent. Strength: Right Upper Extremity: Shoulder flexors 3-/5. Shoulder abductors 3-/5. Elbow flexors 4-/5. Elbow extensors 4-/5. Fuel Cell Engineer strong. Left Upper Extremity: Shoulder flexors 3-/5. Shoulder abductors 3-/5. Elbow flexors 4-/5. Elbow extensors 4-/5. Fuel Cell Engineer strong. Right Lower Extremity: Hip flexors 4-/5. Hip abductors 4-/5. Knee flexors 4-/5. Knee extensors 4-/5. Ankle dorsiflexors 4-/5. Ankle plantarflexors 4-/5. Left Lower Extremity: Hip flexors 3-/5. Hip abductors 3-/5. Knee flexors 3-/5. Knee extensors 2-/5. Ankle dorsiflexors 0/5. Ankle plantarflexors 0/5. Bed Mobility/Transfers: Minimal cueing provided for use of B hands as needed for support, movement sequence, AD management, and posture to reduce fall risk and minimize pain report Sit to stand with stand by assist of 2 with cueing provided for movement sequence and hand placement Stand to sit with stand by assist of 2 with cueing provided for movement sequence and hand placement Gait: 50 feet with FWW with stand by assist of 2. New properly fitted AFO on the L side. Gait ataxic. Excessive trunk flexion throughout stance and swing phase. Step height and length asymmetrical. Balance: Static Sitting: Normal Dynamic Sitting: Normal Static Standing: Fair Dynamic Standing: Fair Special Tests: Mobility Limitations Standardized Measure [facility] 6 clicks Basic Mobility Inpatient Short Form: Raw Score: 18 CMS Score: 47% deficit Informed Consent/Education: Patient was instructed in purpose of PT consult and plan of care. Agreeable to proceed with established PT POC to achieve personal goals. ASSESSMENT: Patient presents with clinical signs and symptoms consistent with current/admitting diagnoses that have resulted to mobility limitations, gait instability, generalized weakness, and overall ADL decline as demonstrated by the following impairment level findings: 1. Decreased strength to B UE/LE major muscle groups L side more weak than the R 2. Impaired sitting/standing balance 3. Impaired activity tolerance 4. Limitation of joint range of motion in L knee and ankle (chronic) 5. Shortness of breath Impairments are contributing to the following functional limitations: 1. Difficulty with ambulation without assistive device and physical assistance 2. Increased completion time for mobility ADL performance 3. Increased risk for falls Patient is assessed as a 38212 moderate complexity based on the following: History: 85-year-old female with past medical history as indicated above Examination: Demonstrable impairment in strength, balance, and mobility level with underlying impairments and functional limitations as exhibited above as well as deficit score of 47% utilizing the [facility] Mobility Inpatient Short Form Presentation: Evolving Decision Makin moderate complexity Goals: Goals X1 week 1. Supine-Sit independent 2. Sit-Supine independent 3. Sit-Stand independent 4. Stand-Sit independent with 4WW 5. Bed-Chair independent with 4WW 6. Chair-Bed independent with 4WW 7. Independent gait on level surface with use of 4WW for at least 150 feet without report of pain nor dyspnea 8. Independent stair negotiation while holding onto B rails for at least 3 steps without report of pain nor dyspnea 9. Independent with home exercise program 10. Good static and dynamic standing balance/tolerance Plan of Care/Treatment Plan: 1-2x/day, 7 days/week x 1 week. Plan of care has been reviewed with the [employer] providing the service under Physical Therapy direction. Initiate Physical Therapy intervention for pain management as needed, strengthening, bed mobility, transfers, gait, stairs, balance training, and use of assistive device. DISCHARGE RECOMMENDATIONS: PT for B UE/LE strengthening and functional mobility retraining to optimize ability to thrive at home while reducing fall risk. TREATMENT CODE/TIME: 68327 x 20 minutes for 1 unit, 93152 x 18 minutes (15:12-15:50). Thank you for the opportunity to participate in the care of this patient. Krista Persaud PT, DPT, CLT [facility] [place], [place]
--- NOTE | 2025-07-20 14:15 | W.ED.GENAD ---
Discharge Plan Disposition Patient Disposition: Home Condition: Stable Discharge Details Clinical Impression: Fall, Weakness, Thrombocytopenia, Acute dehydration Primary Care Provider: Patience Alvarez ED Provider: Mallory Paige Home Meds and New Rx's Prescriptions: Continued tamsulosin 0.4 mg capsule 0.8 mg PO HS Qty: 90 cyanocobalamin (vitamin B-12) 1,000 mcg capsule 1,000 mcg PO DAILY Eliquis 5 mg tablet See Rx Instructions .ROUTE .COMPLEX Qty: 180 3RF Dose Instruction: TAKE ONE TABLET BY MOUTH TWICE A DAY Rx Instructions: TAKE ONE TABLET BY MOUTH TWICE A DAY lisinopril 10 MG tablet 10 mg PO DAILY cholecalciferol (vitamin D3) [Vitamin D3] 2,000 UNIT capsule 1 cap PO DAILY baclofen 20 mg tablet 20 mg PO DAILY rosuvastatin [Crestor] 20 MG tablet 20 mg PO HS aspirin 81 mg Tablet,Delayed Release (Dr/Ec) 81 mg PO DAILY Qty: 30 0RF sertraline 50 mg Tablet 50 mg PO DAILY Qty: 30 0RF Discharge Instructions Additional Instructions: Please follow-up with your primary care physician tomorrow You need to have your platelet count and CBC rechecked in the next 48 hours Make sure you are drinking eight 8 ounce glasses of water daily and use your walker and wheelchair with ambulation I am placing a referral for home health PT Please return should you develop dizziness, weakness, fever, or should any new concerns arise [facility] will call to schedule an appointment to review your aneurysm, this is not a new finding and was seen previously on the CT scan should you develop back pain chest pain or worsening discomfort please be reassessed Stand Alone Forms: Portal Information Referrals: Patience Alvarez MD [Primary Care Provider, Medicine] Discharge Data Discharge Date/Time-TO BE ENTERED AT DEPARTURE: 07/19/25 16:16 HPI General Date/Time Provider Initiated Documentation: 07/19/25 10:08. HPI Narrative: 84-year-old male presents with report of acting off and weak this morning with increased urination. Patient did have a fall last week and is concerned that maybe had an injury. Did initially require some oxygen per EMS. Patient on arrival is alert and oriented and in no acute distress. Patient states he feels slightly more weak today but denies any additional acute complaints. He states he falls frequently as he loses balance and this is not new he states he did fall last week but was able to get himself up. He does not believe he hit his head and does not have a headache right now. He denies any urinary symptoms. He denies any chest pain or shortness of breath. Related Data Home Medications Medication Instructions Recorded Confirmed cholecalciferol (vitamin D3) 50 1 cap PO DAILY 09/15/14 07/19/25 mcg (2,000 unit) capsule (Vitamin D3) lisinopril 10 mg tablet 10 mg PO DAILY 09/15/14 07/19/25 rosuvastatin 20 mg tablet (Crestor) 20 mg PO HS 08/28/17 07/19/25 baclofen 20 mg tablet 20 mg PO DAILY 05/13/21 07/19/25 tamsulosin 0.4 mg capsule 0.8 mg PO HS #90 tab-caps 11/17/22 07/19/25 cyanocobalamin (vitamin B-12) 1,000 mcg PO DAILY 08/02/24 07/19/25 1,000 mcg capsule aspirin 81 mg tablet,delayed 81 mg PO DAILY #30 tabs 08/18/24 07/19/25 release sertraline 50 mg tablet 50 mg PO DAILY #30 tabs 08/18/24 07/19/25 apixaban 5 mg tablet (Eliquis) See Rx Instructions .Route 10/31/24 07/19/25 .COMPLEX #180 tabs Previous Rx's Medication Instructions Recorded aspirin 81 mg tablet,delayed 81 mg PO DAILY #30 tabs 08/18/24 release sertraline 50 mg tablet 50 mg PO DAILY #30 tabs 08/18/24 apixaban 5 mg tablet (Eliquis) See Rx Instructions .Route 10/31/24 .COMPLEX #180 tabs Allergies Allergy/AdvReac Type Severity Reaction Status Date / Time No Known Allergies Allergy Verified 05/02/25 09:04 General Stated Complaint: Arrhythmia HARRISON: 3 Exam Narrative Exam Narrative: Patient is alert, he appears chronically ill he is answering questions appropriately lungs are clear to auscultation, no respiratory distress, no abdominal tenderness no visible sign of trauma, GCS 15 oriented x 4. Cranial nerves II through XII intact ambulatory with cautious but steady gait. Negative [id number], negative heel aj Course Vital Signs Vital signs: Vital Signs Temperature 37.3 C 07/19/25 09:57 Pulse 111 H 07/19/25 09:57 Respiratory Rate 20 07/19/25 09:57 Blood Pressure 145/75 H 07/19/25 09:57 Pulse Oximetry 95 07/19/25 09:57 Temperature 37.3 C 07/19/25 09:57 Pulse 61 07/19/25 16:15 Pulse 53 L 07/19/25 15:10 Respiratory Rate 20 07/19/25 16:15 Blood Pressure 147/62 H 07/19/25 16:15 Blood Pressure Mean 95 07/19/25 11:46 Pulse Oximetry 96 07/19/25 16:15 Oxygen Delivery Method Room Air 07/19/25 15:15 Oxygen Flow Rate 0 07/19/25 15:15 Lab/Test Results Lab/Test Results: 07/19/25 11:09 Blood Blood Culture - Preliminary NO GROWTH 24 HOURS 07/19/25 11:00 Blood Blood Culture - Preliminary NO GROWTH 24 HOURS Laboratory Tests Range/Units 07/19/25 07/19/25 07/19/25 10:52 12:30 13:15 WBC (4.4-10.8) 10^3/uL 3.57 L RBC (4.36-5.78) 10^6/uL 4.04 L Hgb (13.5-17.5) g/dL 10.9 L Hct (40.0-50.0) % 33.7 L MCV (80-95) fL 83 MCH (27.0-33.0) pg 27.0 MCHC (32.0-36.0) % 32.3 RDW (11.8-14.1) % 16.2 H Plt Count (130-400) 10^3/uL 81 L MPV (8.0-11.0) fL 8.7 Immature Gran % % 1.1 Neutrophils % % 75.1 Lymphocytes % % 6.4 Monocytes % % 15.7 Eosinophils % % 1.1 Basophils % % 0.6 Nucleated RBC % (0.0-0.3) % 0.0 Absolute Neutrophils (1.2-6.7) 10^3/uL 2.68 Absolute Lymphocytes (1.2-3.4) 10^3/uL 0.23 L Absolute Monocytes (0.1-0.8) 10^3/uL 0.56 Absolute Eosinophils (0.0-0.7) 10^3/uL 0.04 Absolute Basophils (0.0-0.2) 10^3/uL 0.02 VBG Lactate (<or=2.0) mmol/L 0.8 Sodium (136-145) mmol/L 139 Potassium (3.5-5.1) mmol/L 4.0 Chloride (98-107) mmol/L 103 Carbon Dioxide (20.0-31.0) mmol/L 28.8 Anion Gap (3-11) mmol/L 7.2 BUN (9-23) mg/dL 22 Creatinine (0.73-1.18) mg/dL 0.9 Est GFR (CKD-EPI 2020) (mL/min/1.73m2) 80.11 Glucose (74-106) mg/dL 116 H Calcium (8.3-10.6) mg/dL 8.9 Magnesium (1.6-2.6) mg/dL 2.0 Total Bilirubin (0.2-1.2) mg/dL 1.10 AST (<34) U/L 21 ALT (10-49) U/L 11 Alkaline Phosphatase (46-116) U/L 78 Troponin I (<54) ng/L 31 30 Total Protein (5.7-8.2) g/dL 6.9 Albumin (3.4-5.0) g/dL 3.9 Urine Color (Yellow) Yellow Urine Clarity (Clear) Clear Urine pH (5-8) 5.0 Ur Specific [place] (1.005-1.025) <= 1.005 Urine Protein (Neg-Trace) mg/dL Negative Urine Ketones (Negative) mg/dL Negative Urine Blood (Negative) Large H Urine Nitrite (Negative) Negative Urine Bilirubin (Negative) Negative Urine Urobilinogen (Up to 0.2) mg/dL 1.0 H Ur Leukocyte Esterase (Negative) Negative Urine RBC (0-2) HPF 20-50 H Urine WBC (0-5) HPF 0-2 Ur Epithelial Cells (Negative) HPF Rare Urine Crystals (Negative) HPF Negative Urine Bacteria (Negative) HPF Rare Urine Casts (Negative) LPF Negative Urine Mucus (Negative) Trace Ur Culture Indicated? No Urine Glucose (Negative) mg/dL Negative Medical Decision Making Results: Patient had CT head which does not show acute abnormality per radiology interpretation my review, CT chest abdomen pelvis shows infrarenal aortic aneurysm 3.4 cm possible pseudoaneurysm, CBC shows thrombocytopenia 81,000, patient has had a similar level before, hemoglobin hematocrit stable for patient at 10.9 and 33.7 chemistry within normal limits urinalysis without evidence of infection Assessment and plan: Patient given fluids feels significant improvement does not require oxygen has a baseline history of atrial flutter and is in rate controlled atrial flutter he is not orthostatic with PT eval he was able to ambulate at his baseline for PT and they recommended home health PT which was placed. Patient has a possible pseudoaneurysm on his CT abdomen and pelvis and so I did discuss the case with Dr. Nation, vascular surgeon at [facility] and she does not feel this is a pseudoaneurysm and states that there is no significant change since their last CT scan on this patient and they will follow-up in the outpatient setting. Of note patient has no abdominal pain or back pain/chest pain he is relatively asymptomatic. Patient given low threshold to return should he have new or worsening complaints and discharged home in stable condition with his [facility] All Active Problems (Updated 07/19/25 @ 15:56 by LILIA Carrera) Acute dehydration (Acute) Thrombocytopenia (Chronic) Weakness (Acute) Fall (Acute) Advanced care planning/counseling discussion (Acute) Cognitive impairment (Acute) Aphasia (Acute) Lower extremity weakness (Acute) DNR (do not resuscitate) (Acute) COLST 08/16/2024: DNR/DNI, positive transfer, positive treat with IV antibiotics and IV fluids. No feeding tube Spinal stenosis, lumbar region, with neurogenic claudication (Acute) Dysarthria (Acute) Confusion (Acute) Stroke (Chronic) Prediabetes (Acute) Essential hypertension (Acute) Nicotine dependence (Acute) Atherosclerosis of coronary artery without angina pectoris (Acute) Rosacea (Acute) Diaphragmatic hernia (Acute) Left foot drop (Acute) BPH (benign prostatic hyperplasia) (Chronic) Splenomegaly (Acute) Aortic ectasia, thoracic (Acute) Chronic myelopathy (Acute) Vitamin B12 deficiency (Acute) Aneurysm of infrarenal abdominal aorta (Acute) Thrombocytopenic disorder (Acute) Macular degeneration (Acute) Vitamin D deficiency (Acute) Coronary artery disease (Chronic) Generalized muscle weakness (Acute) Acute UTI (Acute) Multiple falls (Acute) Anticoagulated (Acute) Atrial flutter (Acute) Medical History (Updated 07/19/25 @ 15:56 by LILIA Carrera) Palliative care patient Left-sided epistaxis Aortic insufficiency Ascending aorta dilation Seborrheic keratoses Neoplasm of unspecified behavior of bone, soft tissue, and skin Cholelithiasis Hiatal hernia HTN (hypertension) Splenic lesion GERD (gastroesophageal reflux disease) BPH w/o urinary obs/LUTS Impaired fasting glucose Anxiety about health Hyperlipidemia Aortic valve regurgitation Anxiety History of tobacco use Erectile dysfunction Spinal stenosis, cervical region LLQ abdominal pain Myelopathy Surgical History Repair of inguinal hernia bilateral Colonoscopy - [facility] (09/02/17) Social History Smoking/Tobacco Use Status: Former Tobacco Use Quit Date: 08/31/78 Tobacco: How many years used: 20 Smoking risk assessment performed?: Yes Alcohol Intake: current Alcohol Intake frequency: 0-2 drinks per day Alcohol type: hard liquor Drug use: Never Substance use type: does not use Housing: house What is your relationship status?: Panel score (0-1 are the most socially isolated patients): 1 What type of physical activity do you participate in: other Details: stationary cycle Duration: 15-30 minutes/day Frequency: daily Do you feel safe at home: Yes Do you feel safe in your relationship?: Yes
== END 2025-07-19 16:16 | disposition home or self-care (01) ==
PROVIDERS: Emergency Provider Physician Assistant; PCP Family Medicine
DX: R53.1 Weakness (principal); D69.6 Thrombocytopenia, unspecified; E86.0 Dehydration; I48.92 Unspecified atrial flutter; I45.19 Other right bundle-branch block; I10 Essential (primary) hypertension; E78.5 Hyperlipidemia, unspecified
CPT/HCPCS: 36415; 74177; 80053; 87040; 93005; 97162; 97530; 99285; 70450; 71260; 81003; 81015; 83605; 83735; 84484; 85025; 93010; 99284; J3490

== ENCOUNTER 2025-07-21 16:07 | Outpatient (REF) | payer MEDICARE, SELFPAY ==
[2025-07-21 21:42] LABS: Abs Immature Grans 0.04 10^3/uL (0.0-0.06); HCT 33.5 % (40.0-50.0); HGB 10.9 g/dL (13.5-17.5); Immature Grans % 0.8 %; MCH 27.1 pg (27.0-33.0); MCHC 32.5 % (32.0-36.0); MCV 83 fL (80-95); MPV 9.8 fL (8.0-11.0); Platelet Count 115 10^3/uL (130-400); RBC 4.02 10^6/uL (4.36-5.78); RDW 16.0 % (11.8-14.1); RDW-SD 48.8 fL; WBC 4.90 10^3/uL (4.4-10.8)
[2025-07-21 22:08] LABS: Vitamin B12 992 pg/mL (211-911)
[2025-07-21 22:31] LABS: Iron 30 ug/dL (65-175)
== END 2025-07-21 16:08 | disposition home or self-care (01) ==
LOC: NCHCN 16:07
PROVIDERS: PCP Family Medicine; Visit Provider Physician Assistant
DX: D61.818 Other pancytopenia (principal)
CPT/HCPCS: 82607; 83540; 85025; 85045